=== PATIENT | female | born 1955 | race Caucasian/White ===

== ENCOUNTER → 2016-11-27 | Outpatient (CLI) | payer MEDICAID ==
[2016-11-27 16:42] LABS: ABSOLUTE BASOPHILS # (AUTO) 0.1 10^3/uL (0.0-0.2); ABSOLUTE EOSINOPHILS # (AUTO) 0.3 10^3/uL (0.0-0.6); ABSOLUTE LYMPHOCYTES (AUTO) 2.5 10^3/uL (0.5-4.7); ABSOLUTE MONOCYTES (AUTO) 0.7 10^3/uL (0.1-1.4); ABSOLUTE NEUT (AUTO) 5.6 10^3/uL (1.7-8.2); BASOPHILS % (AUTO) 0.7 % (0-2); EOSINOPHILS % (AUTO) 3.1 % (0-6); HEMATOCRIT 39.9 % (36.0-47.0); HEMOGLOBIN 13.6 g/dL (12.0-15.5); HGB HCT DIFFERENCE 0.9; LYMPHOCYTES % (AUTO) 27.3 % (13-45); MEAN CORPUSCULAR HEMOGLOBIN 30.7 pg (27.0-33.4); MEAN CORPUSCULAR VOLUME 90 fl (80-97); MONOCYTES % (AUTO) 7.8 % (3-13); RED BLOOD COUNT 4.41 10^6/uL (3.72-5.28); RED CELL DISTRIBUTION WIDTH 15.2 % (11.5-14.0); SEGMENTED NEUTROPHILS % (AUTO) 61.1 % (42-78); WHITE BLOOD COUNT 9.2 10^3/uL (4.0-10.5)
[2016-11-27 16:43] LABS: PROTHROMBIN TIME 12.3 SEC (11.4-15.4)
[2016-11-27 16:52] LABS: ANION GAP 8 (5-19); BLOOD UREA NITROGEN 16 mg/dL (7-20); CARBON DIOXIDE 31 mmol/L (22-30); CHLORIDE 102 mmol/L (98-107); CREATININE RESULT 0.68 mg/dL (0.52-1.25); GLUCOSE 87 mg/dL (75-110); MAGNESIUM 1.9 mg/dL (1.6-2.3); POTASSIUM 4.6 mmol/L (3.6-5.0); SODIUM 140.5 mmol/L (137-145)
== END ==
LOC: OD 15:51
PROVIDERS: ATTEND Nurse Practitioner Acute Care
DX: I42.9 Cardiomyopathy, unspecified (principal)
CPT/HCPCS: 36415; 80048; 83735; 85025; 85610

== ENCOUNTER 2018-06-22 09:35 | Emergency (ER) | payer MEDICARE, MEDICAID ==
--- NOTE | 2018-06-22 09:44 | ER Document Report ---
ED General - General Chief Complaint: Abnormal Lab Results Stated Complaint: BLOOD WORK Time Seen by Provider: 06/22/18 09:39 Notes: 63-year-old female to the emergency department for evaluation of abnormal lab report. Patient states that she had her blood drawn earlier this week. Was called by her primary care doctor, Dr. Green, who states that her potassium was high and he called in some medicine for her. Patient states that she is asymptomatic and does not really believe that the lab reports are accurate. Once her blood redrawn. Patient states that she has been on some Cipro for skin infection. Otherwise has been asymptomatic. Taking all of her regular medications. On metformin, lisinopril, Synthroid. TRAVEL OUTSIDE OF THE [place] IN LAST 30 DAYS: No - HPI Onset: Yesterday - Related Data Allergies/Adverse Reactions: pseudoephedrine [Pseudoephedrine] Allergy (Verified 06/22/18 09:36) IVP DYE Allergy (Uncoded 06/22/18 09:36) Past Medical History - General Information source: Patient - Social History Smoking Status: Current Some Day Smoker Frequency of alcohol use: None Drug Abuse: None Lives with: Family Family History: Reviewed & Not Pertinent - Past Medical History Cardiac Medical History: Reports: Hx Hypercholesterolemia, Hx Hypertension - malignant Neurological Medical History: Reports: Hx Cerebrovascular Accident - 2 years ago Endocrine Medical History: Reports: Hx Diabetes Mellitus Type 2, Hx Hypothyroidism Psychiatric Medical History: Reports: Hx Anxiety, Hx Depression - Immunizations Hx Diphtheria, Pertussis, Tetanus Vaccination: Yes Review of Systems - Review of Systems Constitutional: denies: Fever, Malaise, Weakness EENT: denies: Ear pain, Difficulty swallowing, Mouth swelling Cardiovascular: denies: Chest pain, Palpitations, Heart racing, Orthopnea, Dyspnea Respiratory: denies: Cough, Hurts to breathe, Short of breath, Wheezing Gastrointestinal: denies: Abdominal pain, Diarrhea, Nausea, Vomiting Musculoskeletal: denies: Back pain, Joint pain, Joint swelling, Leg swelling Hematologic/Lymphatic: denies: Blood clots, Easy bleeding, Easy bruising Neurological/Psychological: denies: Confusion, Weakness, Numbness Physical Exam - Vital signs Vitals: Temp Pulse Resp BP Pulse Ox 97.8 F 74 20 148/58 H 98 06/22/18 09:40 06/22/18 09:40 06/22/18 09:40 06/22/18 09:40 06/22/18 09:40 Interpretation: Normal - General General appearance: Appears well, Alert - Respiratory Respiratory status: No respiratory distress Chest status: Nontender Breath sounds: Normal Chest palpation: Normal - Cardiovascular Rhythm: Regular Heart sounds: Normal auscultation Murmur: No - Abdominal Inspection: Normal Distension: No distension Bowel sounds: Normal Tenderness: Nontender Organomegaly: No organomegaly - Neurological Neuro grossly intact: Yes Cognition: Normal Orientation: AAOx4 [place] Coma Scale Eye Opening: Spontaneous [place] Coma Scale Verbal: Oriented [place] Coma Scale Motor: Obeys Commands [place] Coma Scale Total: 15 Speech: Normal Motor strength normal: LUE, RUE, LLE, RLE Sensory: Normal Course - Re-evaluation Re-evalutation: 06/22/18 11:12 Laboratory 06/22/18 10:10 Sodium 141.5 Potassium 4.5 Chloride 102 Carbon Dioxide 26 Anion Gap 14 BUN 12 Creatinine 0.63 Est GFR ( Amer) > 60 Est GFR (Non-Af Amer) > 60 Glucose 160 H Calcium 9.3 Total Bilirubin 0.4 Direct Bilirubin 0.4 Neonat Total Bilirubin Not Reportable Neonat Direct Bilirubin Not Reportable Neonat Indirect Bili Not Reportable AST 8 L ALT 19 Alkaline Phosphatase 94 Total Protein 6.6 Albumin 3.4 L 06/22/18 11:12 No evidence of hyperkalemia on repeat blood draw. Labs are fairly unremarkable. Will DC at this time. - Vital Signs Vital signs: Temp Pulse Resp BP Pulse Ox 97.8 F 74 20 148/58 H 98 06/22/18 09:40 06/22/18 09:40 06/22/18 09:40 06/22/18 09:40 06/22/18 09:40 - Laboratory Result Diagrams: 06/22/18 10:10 Laboratory results interpreted by me: 06/22/18 10:10 Glucose 160 H AST 8 L Albumin 3.4 L Discharge - Discharge Clinical Impression: Abnormal laboratory test Condition: Good Disposition: HOME, SELF-CARE Instructions: Normal Exam and Workup ([facility]) Additional Instructions: Your abnormal blood draw the other day was more than likely due to laboratory error. Your blood work today looks normal. In the event that you develop any symptoms of concerns please return. Referrals: NICOLASA GREEN MD [Primary Care Provider] - Follow up as needed
[2018-06-22 11:05] LABS: ALANINE AMINOTRANSFERASE 19 U/L (9-52); ALBUMIN 3.4 g/dL (3.5-5.0); ALKALINE PHOSPHATASE 94 U/L (38-126); ANION GAP 14 (5-19); ASPARTATE AMINO TRANSFERASE 8 U/L (14-36); BILIRUBIN,DIRECT 0.4 mg/dL (0.0-0.4); BILIRUBIN,TOTAL 0.4 mg/dL (0.2-1.3); BLOOD UREA NITROGEN 12 mg/dL (7-20); CALCIUM 9.3 mg/dL (8.4-10.2); CARBON DIOXIDE 26 mmol/L (22-30); CHLORIDE 102 mmol/L (98-107); GLUCOSE 160 mg/dL (75-110); POTASSIUM 4.5 mmol/L (3.6-5.0); SODIUM 141.5 mmol/L (137-145); TOTAL PROTEIN 6.6 g/dL (6.3-8.2)
[2018-06-22 11:21] VITALS: BP 133/71
== END 2018-06-22 11:21 | disposition home or self-care (01) ==
LOC: ER 09:35
DX: Z04.8 Encounter for examination and observation for other specified reasons (principal); L08.9 Local infection of the skin and subcutaneous tissue, unspecified; F17.200 Nicotine dependence, unspecified, uncomplicated; I10 Essential (primary) hypertension; E03.9 Hypothyroidism, unspecified; E11.9 Type 2 diabetes mellitus without complications; Z79.84 Long term (current) use of oral hypoglycemic drugs; Z79.899 Other long term (current) drug therapy; Z88.8 Allergy status to other drugs, medicaments and biological substances; Z91.041 Radiographic dye allergy status
CPT/HCPCS: 36415; 80053; 99283

== ENCOUNTER → 2018-10-31 | Outpatient (CLI) | payer MEDICARE, MEDICAID ==
--- NOTE | 2018-10-31 13:10 | XCELERA REPORT ---
[address] [address] Lower Extremity Arterial Evaluation Name: JOSH TOLBERT Age: 63 yrs Gender: Female : 1955 Patient Status: Outpatient Patient Location: Study Date: 10/31/2018 11:02 AM Procedure: A color flow and duplex scan of the lower extremity arteries was performed bilaterally with velocity and waveform anaylsis. Ankle brachial indicies performed. Reason For Study: ULCER Ordering Physician: SASHA EVANS Performed By: Sara Lopez Measurements and Calculations Right Left SAFETY ADMIN ASSISTANT PSV -75.2 -92.7 cm/sec Prox PFA PSV 119.4 80.3 cm/sec Prox SFA PSV 55.1 102.5 cm/sec Mid SFA PSV 66.8 132.5 cm/sec Dist SFA PSV 104.3 74.9 cm/sec Prox Pop A PSV 10.4 cm/sec Prox TIGRE PSV 34.7 cm/sec Mid TIGRE PSV 31.9 cm/sec Prox DIRECTOR OF EDUCATION PSV 69.7 cm/sec Mid DIRECTOR OF EDUCATION PSV 39.5 cm/sec Osmany Pedis PSV -32.6 -29.9 cm/sec Right Side Arterial Evaluation Normal velocity and triphasic waveforms noted from the Common Femoral artery to the Popliteal artery. Biphasic with spectral broadening, decreased velocity in the Anterior tibial, normal velocity in the Posterior. Ankle Brachial index 0.7. Left Side Arterial Evaluation Normal velocity and triphasic waveforms noted in the Common Femoral artery. Biphasic, normal velocity in the Femoral. Biphasic with spectral broadening, decreased velocity in the infrageniculate vessels Ankle Brachial index 0.8. Interpretation Summary Moderate hemodynamically significant lesions in the right lower extremity only, on duplex imaging, at rest. NAIN suggests moderately severe disease, on the right, mild on the left. Moderate hemodynamically significant lesions in the left lower extremity only, on duplex imaging, at rest. : SASHA EVANS > Leandro Marrero
== END ==
LOC: SP 09:43
PROVIDERS: ATTEND Nurse Practitioner
DX: L97.512 Non-pressure chronic ulcer of other part of right foot with fat layer exposed (principal)
CPT/HCPCS: 93922; 93925

== ENCOUNTER → 2019-03-11 | Outpatient (CLI) | payer MEDICARE, MEDICAID ==
--- NOTE | 2019-03-11 13:28 | RADIOLOGY REPORT (SQ) ---
EXAM DESCRIPTION: FOOT BILATERAL 3 VIEWS COMPLETED DATE/TIME: 03/11/2019 12:52 pm REASON FOR STUDY: UNSPECIFIED ACQUIRED DEFORMITY OF UNSPECIFIED LOWER LEG M21.969 UNSPECIFIED ACQUI RED DEFORMITY OF UNSPECIFIED LOWER COMPARISON: None. NUMBER OF VIEWS: Three views. TECHNIQUE: AP, lateral and oblique radiographic images acquired of the right and left foot. LIMITATIONS: None. FINDINGS: MINERALIZATION: Normal. BONES: No acute fracture or dislocation. Calcaneal spurs bilaterally. Accessory cuboid bone on the left, normal anatomic variant. JOINTS: Since the previous examination, bony destruction and collapse right first metatarsophalangea l joint. Soft tissue swelling. Differential diagnosis includes osteomyelitis versus neuropathic abel nt. Mild degenerative changes right mid foot. Mild degenerative changes mid foot on the left. No evidence of bony destruction. SOFT TISSUES: See above discussion. OTHER: No other significant finding. IMPRESSION: 1. Since the previous examination dated 02/29/2016, new finding of bony destruction and collapse at the right first metatarsophalangeal joint. Soft tissue swelling. Differential diagnosis includes osteomyelitis versus neuropathic joint. Correlation suggested. 2. Bilateral mid foot arthritic changes. 3. Bilateral calcaneal spurs. TECHNICAL DOCUMENTATION: JOB ID: [id number] [email or web address]- All Rights Reserved Reading location - IP/workstation name: [email or web address]
== END ==
LOC: OD 12:37
PROVIDERS: ATTEND Physician Assistant Surgical
DX: M21.969 Unspecified acquired deformity of unspecified lower leg (principal)

== ENCOUNTER → 2019-05-28 | Outpatient (CLI) | payer MEDICARE, MEDICAID ==
--- NOTE | 2019-05-28 15:23 | RADIOLOGY REPORT (SQ) ---
EXAM DESCRIPTION: CAROTID DOPPLER COMPLETED DATE/TIME: 05/28/2019 2:47 pm REASON FOR STUDY: BRUIT R09.89 OTH SYMPTOMS AND SIGNS INVOLVING THE CIRC AND RESP SY COMPARISON: 09/26/2016 TECHNIQUE: Grayscale ultrasound, Doppler velocity and spectra, and color Doppler images acquired of the extra-cranial carotid and vertebral arteries. Images stored on PACS. LIMITATIONS: None. FINDINGS: RIGHT CAROTID CCA Velocities: Within normal limits. ICA Velocities Peak systolic 0.86 m/s. End diastolic 0.28 m/s. Proximal ICA/CCA peak systolic ratio 1.7. Mild complex plaque in the carotid bulb. LEFT CAROTID CCA Velocities: Within normal limits. ICA Velocities Peak systolic 1.18 m/s. End diastolic 0.38 m/s. Proximal ICA/CCA peak systolic ratio 1.4. Spectra normal. No significant plaque. VERTEBRAL ARTERIES: Antegrade flow. Normal waveforms. SUBCLAVIAN ARTERIES: No finding. OTHER: Velocities in the right external carotid artery are greater than 5 m/sec. IMPRESSION: 1. No hemodynamically significant stenosis on the right or left. 2. There is narrowing in both the right and left external carotid arteries which may cause a bruit. COMMENT: Quality ID #[id number]: Velocity criteria are extrapolated from the diameter data as defined by t he Society of Radiologists in Ultrasound Consensus Conference. Radiology 2003: 229; 340-346. TECHNICAL DOCUMENTATION: JOB ID: [id number] [employer]- All Rights Reserved Reading location - IP/workstation name: [email or web address]
== END ==
LOC: SP 12:57
PROVIDERS: ATTEND Surgery
DX: R09.89 Other specified symptoms and signs involving the circulatory and respiratory systems (principal)
CPT/HCPCS: 93880

== ENCOUNTER 2019-12-12 16:21 | Inpatient (IN) | payer MEDICARE, MEDICAID ==
--- NOTE | 2019-12-12 17:17 | ER Document Report ---
ED Medical Screen (RME) - General Chief Complaint: Hand Swelling Stated Complaint: RIGHT HAND AND ARM PAIN/SWELLING Time Seen by Provider: 12/12/19 16:55 Primary Care Provider: NICOLASA GREEN MD [Primary Care Provider] - Follow up as needed Mode of Arrival: Ambulatory Information source: Patient Notes: 64-year-old female patient presenting to the emergency department from Dr. Green's office with concern for right arm pain and swelling. Patient reports this is been going on for several days. She states Dr. Green sent her over here with concern for possible DVT. Patient denies any personal history of DVT. While evaluating patient it was noted that patient's heart rate was 169 bpm and the lobby. This checked manually and the heart rate seems to be ranging between 150 and 170. Patient denies any history of elevated heart rate in the past. Patient taken straight to inform MD Lakeisha made aware. Patient denies any chest pain or shortness of breath. I have greeted and performed a rapid initial assessment of this patient. A comprehensive ED assessment and evaluation of the patient, analysis of test results and completion of the medical decision making process will be conducted by additional ED providers. I have specifically instructed the patient or family members with the patient to immediately return to any nursing staff should anything change in the patient's condition or with their chief complaint. TRAVEL OUTSIDE OF THE [place] IN LAST 30 DAYS: No - Related Data Allergies/Adverse Reactions: pseudoephedrine [Pseudoephedrine] Allergy (Verified 12/12/19 16:50) IVP DYE Allergy (Uncoded 06/22/18 09:36) Past Medical History - Social History Chew tobacco use (# tins/day): No Frequency of alcohol use: None Drug Abuse: None - Past Medical History Cardiac Medical History: Reports: Hx Hypercholesterolemia, Hx Hypertension - malignant Neurological Medical History: Reports: Hx Cerebrovascular Accident - 2 years ago Endocrine Medical History: Reports: Hx Diabetes Mellitus Type 2, Hx Hypothyroidism Renal/ Medical History: Denies: Hx Peritoneal Dialysis Psychiatric Medical History: Reports: Hx Anxiety, Hx Depression - Immunizations Hx Diphtheria, Pertussis, Tetanus Vaccination: Yes Doctor's Discharge - Discharge Referrals: NICOLASA GREEN MD [Primary Care Provider] - Follow up as needed
[2019-12-12] MEDS ORDERED: DILTIAZEM HCL INJ 25 MG/5 ML VIAL IV ONE (17:31)
--- NOTE | 2019-12-12 17:50 | RADIOLOGY REPORT (SQ) ---
EXAM DESCRIPTION: CHEST SINGLE VIEW COMPLETED DATE/TIME: 12/12/2019 5:36 pm REASON FOR STUDY: New onset atrial fibrillation with RVR COMPARISON: Two-view chest 10/06/2016 EXAM PARAMETERS: NUMBER OF VIEWS: One view. TECHNIQUE: Single frontal radiographic view of the chest acquired. RADIATION DOSE: NA LIMITATIONS: None. FINDINGS: LUNGS AND PLEURA: Consolidation in the right lung base worrisome for acute pneumonia. Tra ce right pleural effusion could not be excluded. MEDIASTINUM AND HILAR STRUCTURES: No masses. Contour normal. HEART AND VASCULAR STRUCTURES: Marked cardiomegaly, new compared to 2016 BONES: No acute findings. HARDWARE: None in the chest. OTHER: No other significant finding. IMPRESSION: Right lower lobe consolidation worrisome for pneumonia. Marked cardiomegaly, new compared to 2016 TECHNICAL DOCUMENTATION: JOB ID: [id number] [employer]- All Rights Reserved Reading location - IP/workstation name: [email or web address]
[2019-12-12] MEDS: DILTIAZEM HCL/D5W 125 MG/125 ML RTUINJ IV PRN ×2 (17:55→17:58)
--- NOTE | 2019-12-12 18:27 | ER Document Report ---
Entered by RENNY ASENCIO SCRIBE 12/12/19 [id number] Acting as scribe for:JOSH DOBSON MD ED General - General Chief Complaint: Hand Swelling Stated Complaint: RIGHT HAND AND ARM PAIN/SWELLING Time Seen by Provider: 12/12/19 16:55 Primary Care Provider: NICOLASA GREEN MD [Primary Care Provider] - Follow up as needed Mode of Arrival: Ambulatory Information source: Patient Notes: 64 year old female with a history of CVA presents to the ED with right arm swelling that began yesterday. Patient states that she has "burning" pain in her wrist. Patient has no history of atrial fibrillation although on arrival here she was found to be in a-fib with a heart rate in the 150s. TRAVEL OUTSIDE OF THE [place] IN LAST 30 DAYS: No - Related Data Allergies/Adverse Reactions: pseudoephedrine [Pseudoephedrine] Allergy (Verified 12/12/19 16:50) IVP DYE Allergy (Uncoded 06/22/18 09:36) Past Medical History - General Information source: Patient - Social History Smoking Status: Current Every Day Smoker - 1 pack every 3 days Cigarette use (# per day): Yes - 1/3 packs per day Chew tobacco use (# tins/day): No Frequency of alcohol use: None Drug Abuse: None Family History: Reviewed & Not Pertinent Patient has suicidal ideation: No Patient has homicidal ideation: No - Past Medical History Cardiac Medical History: Reports: Hx Hypercholesterolemia, Hx Hypertension Neurological Medical History: Reports: Hx Cerebrovascular Accident - 2 years ago Endocrine Medical History: Reports: Hx Diabetes Mellitus Type 2, Hx Hypothyroidism Psychiatric Medical History: Reports: Hx Anxiety, Hx Depression Past Surgical History: Reports: Hx Carotid Endarterectomy - Left - Immunizations Hx Diphtheria, Pertussis, Tetanus Vaccination: Yes Review of Systems - Review of Systems Constitutional: No symptoms reported EENT: No symptoms reported Cardiovascular: No symptoms reported Respiratory: No symptoms reported Gastrointestinal: No symptoms reported Genitourinary: No symptoms reported Female Genitourinary: No symptoms reported Musculoskeletal: See HPI, Leg swelling, Other - R Arm swelling Skin: No symptoms reported Hematologic/Lymphatic: No symptoms reported Neurological/Psychological: No symptoms reported -: Yes All other systems reviewed and negative Physical Exam - Vital signs Vitals: Resp 21 H 12/12/19 17:06 - Notes Notes: General: Alert, appears well. HEENT: Normocephalic. Atraumatic. PERRL. Extraocular movements intact. Oropharynx clear. Neck: Supple. Non-tender. Respiratory: No respiratory distress. Clear and equal breath sounds bilaterally. Cardiovascular: Irregularly irregular, tachycardic in the 150s. Abdominal: Normal Inspection. Non-tender. No distension. Normal Bowel Sounds. Back: No gross abnormalities. Extremities: Moves all four extremities. Upper extremities: RUE swollen from mid upper arm. Right dorsal radial wrist ten neeta to palpation with history of Quervain's Tenosynovitis. Normal ROM. Lower extremities: Pedal edema 2+ bilaterally. Normal ROM. Neurological: Normal cognition. AAOx4. Normal speech. Psychological: Normal affect. Normal Mood. Skin: Warm. Dry. Normal color. Course - Re-evaluation Re-evalutation: 12/12/19 20:16 The venous Doppler tech reported to me that the patient showed clot from the neck down to the hand in the right upper extremity. - Vital Signs Vital signs: Temp Pulse Resp BP Pulse Ox 17 117/82 12/12/19 19:15 12/12/19 19:15 - Laboratory Result Diagrams: 12/12/19 17:15 12/12/19 17:15 Laboratory results interpreted by me: 12/12/19 12/12/19 12/12/19 17:15 17:15 17:15 WBC 10.6 H Hgb 11.6 L MCH 25.6 L MCHC 31.0 L RDW 18.7 H Lymph % (Auto) 10.7 L Absolute Neuts (auto) 8.4 H Seg Neutrophils % 78.6 H APTT 23.0 L Glucose 119 H - Diagnostic Test Radiology reviewed: Image reviewed - Chest x-ray shows right pleural effusion with some atelectasis and borderline cardiomegaly. Comparing to a portable film on 12/23/2014 the heart size is probably not changed. This case was discussed with the on-call radiologist. - EKG Interpretation by Me EKG shows normal: [place], Intervals, QRS Complexes. abnormal: ST-T Waves - Nonspecific lateral T abnormalities Rate: Tachycardia - 151 Rhythm: A.Fib [place]/QRS: Left axis deviation When compared to previous EKG there are: Changes noted - Consults Dr. Cox Time consulted: 19:30 Consulted provider: will see as inpatient Critical Care Note - Critical Care Note Total time excluding time spent on procedures (mins): 50 Discharge - Discharge Clinical Impression: Atrial fibrillation with rapid ventricular response, DVT of axillary vein, acute right Condition: Good Disposition: ADMITTED INPATIENT Admitting Provider: Yasir Cox covering Unit Admitted: IMCU Referrals: NICOLASA GREEN MD [Primary Care Provider] - Follow up as needed Scribe Attestation: 12/12/19 20:03 I personally performed the services described in the documentation, reviewed and edited the documentation which was dictated to the scribe in my presence, and it accurately records my words and actions. I personally performed the services described in the documentation, reviewed and edited the documentation which was dictated to the scribe in my presence, and it accurately records my words and actions.
[2019-12-12 18:39] LABS: ABSOLUTE LYMPHOCYTES (AUTO) 1.1 10^3/uL (0.5-4.7); ABSOLUTE MONOCYTES (AUTO) 1.1 10^3/uL (0.1-1.4); ABSOLUTE NEUT (AUTO) 8.4 10^3/uL (1.7-8.2); BASOPHILS % (AUTO) 0.3 % (0-2); EOSINOPHILS % (AUTO) 0.4 % (0-6); HEMATOCRIT 37.4 % (36.0-47.0); HEMOGLOBIN 11.6 g/dL (12.0-15.5); LYMPHOCYTES % (AUTO) 10.7 % (13-45); MEAN CORPUSCULAR HEMOGLOBIN 25.6 pg (27.0-33.4); MEAN CORPUSCULAR VOLUME 83 fl (80-97); PLATELET COUNT 241 10^3/uL (150-450); RED BLOOD COUNT 4.52 10^6/uL (3.72-5.28); RED CELL DISTRIBUTION WIDTH 18.7 % (11.5-14.0); SEGMENTED NEUTROPHILS % (AUTO) 78.6 % (42-78); TOTAL CELLS COUNTED % (AUTO) 100 %; WHITE BLOOD COUNT 10.6 10^3/uL (4.0-10.5)
[2019-12-12 19:03] LABS: ALBUMIN 3.6 g/dL (3.5-5.0); ALKALINE PHOSPHATASE 101 U/L (38-126); ANION GAP 9 (5-19); ASPARTATE AMINO TRANSFERASE 22 U/L (14-36); BILIRUBIN,TOTAL 0.5 mg/dL (0.2-1.3); BLOOD UREA NITROGEN 17 mg/dL (7-20); CALCIUM 9.3 mg/dL (8.4-10.2); CARBON DIOXIDE 30 mmol/L (22-30); CHLORIDE 100 mmol/L (98-107); CREATINE KINASE 36 U/L (30-135); GLUCOSE 119 mg/dL (75-110); POTASSIUM 3.9 mmol/L (3.6-5.0); TOTAL PROTEIN 6.3 g/dL (6.3-8.2)
[2019-12-12 19:13] LABS: CREATINE KINASE MB 1.97 ng/mL (<4.55)
[2019-12-12 19:20] LABS: TROPONIN I 0.146 ng/mL
[2019-12-12] MEDS ORDERED: HEPARIN SOD (PORCINE) 1,000 UNIT/ML 10 ML VIAL IV ONE (19:29)
[2019-12-12 19:42] LABS: INTERNATIONAL RATION (INR) 1.06; PROTHROMBIN TIME 13.8 SEC (11.4-15.4)
[2019-12-12] MEDS: HEPARIN SODIUM,PORCINE/D5W 25,000 UNIT/250 ML RTUINJ IV PRN (20:16)
--- NOTE | 2019-12-12 20:17 | EKG REPORT ---
SEVERITY:- ABNORMAL ECG - ATRIAL FIBRILLATION, V-RATE 73-169 RVR LEFT AXIS DEVIATION ABNRM R PROG, CONSIDER ASMI OR LEAD PLACEMENT NONSPECIFIC T ABNORMALITIES, LATERAL LEADS : Confirmed by: Giovanny Peters MD 12-Dec-2019 20:16:31
[2019-12-12] MEDS ORDERED: OXYCODONE-ACETAMINOPHEN 5-325 MG TABLET PO PRN (21:06)
[2019-12-12] MEDS ORDERED: GLUCAGON,HUMAN RECOMB 1 MG INJ IM PRN (21:07)
[2019-12-12] MEDS ORDERED: DEXTROSE 40% GEL 15 GM TUBE PO PRN ×2 (21:07)
[2019-12-12] MEDS ORDERED: DEXTROSE 50%-WATER 25 GM/50 ML DISP.SYRIN IV PRN ×2 (21:07)
[2019-12-12 21:42] LABS: PHOSPHORUS 3.5 mg/dL (2.5-4.5)
[2019-12-12 22:00] LABS: FREE T4 (FREE THYROXINE) 1.18 ng/dL (0.78-2.19)
[2019-12-12 22:14] LABS: THYROID STIMULATING HORMONE 9.99 uIU/mL (0.47-4.68)
[2019-12-12] MEDS ORDERED: HEPARIN SOD (PORCINE) 1,000 UNIT/ML 10 ML VIAL IV PRN (22:30)
[2019-12-12 22:40] LABS: ABSOLUTE EOSINOPHILS # (AUTO) 0.1 10^3/uL (0.0-0.6); ABSOLUTE LYMPHOCYTES (AUTO) 2.4 10^3/uL (0.5-4.7); ABSOLUTE MONOCYTES (AUTO) 1.4 10^3/uL (0.1-1.4); ABSOLUTE NEUT (AUTO) 8.5 10^3/uL (1.7-8.2); BASOPHILS % (AUTO) 0.3 % (0-2); HEMATOCRIT 34.7 % (36.0-47.0); HEMOGLOBIN 10.8 g/dL (12.0-15.5); LYMPHOCYTES % (AUTO) 18.9 % (13-45); MEAN CORPUSCULAR HEMOGLOBIN 25.4 pg (27.0-33.4); MEAN CORPUSCULAR VOLUME 82 fl (80-97); MONOCYTES % (AUTO) 11.6 % (3-13); PLATELET COUNT 209 10^3/uL (150-450); RED BLOOD COUNT 4.24 10^6/uL (3.72-5.28); RED CELL DISTRIBUTION WIDTH 18.6 % (11.5-14.0); SEGMENTED NEUTROPHILS % (AUTO) 68.2 % (42-78); TOTAL CELLS COUNTED % (AUTO) 100 %; WHITE BLOOD COUNT 12.5 10^3/uL (4.0-10.5)
[2019-12-12 23:12] LABS: CREATINE KINASE MB 1.36 ng/mL (<4.55)
[2019-12-12 23:22] LABS: TROPONIN I 0.219 ng/mL
[2019-12-12 23:43] LABS: INTERNATIONAL RATION (INR) 1.28; PROTHROMBIN TIME 16.1 SEC (11.4-15.4)
[2019-12-12 23:57] LABS: PARTIAL THROMBOPLASTIN TIME > 235.0 SEC (23.5-35.8)
[2019-12-13] MEDS: INSULIN LISPRO 100 UNIT/ML 3 ML VIAL SUBCUT SCH ×5 (00:10→22:31)
[2019-12-13] MEDS: ATORVASTATIN CALCIUM 40 MG TABLET PO SCH ×2 (00:10→22:27)
[2019-12-13 05:14] LABS: ABSOLUTE BASOPHILS # (AUTO) 0.1 10^3/uL (0.0-0.2); ABSOLUTE EOSINOPHILS # (AUTO) 0.2 10^3/uL (0.0-0.6); ABSOLUTE LYMPHOCYTES (AUTO) 1.7 10^3/uL (0.5-4.7); ABSOLUTE MONOCYTES (AUTO) 1.1 10^3/uL (0.1-1.4); ABSOLUTE NEUT (AUTO) 7.2 10^3/uL (1.7-8.2); BASOPHILS % (AUTO) 0.6 % (0-2); EOSINOPHILS % (AUTO) 1.6 % (0-6); HEMATOCRIT 33.3 % (36.0-47.0); HEMOGLOBIN 10.5 g/dL (12.0-15.5); LYMPHOCYTES % (AUTO) 16.9 % (13-45); MEAN CORPUSCULAR HEMOGLOBIN 25.8 pg (27.0-33.4); MEAN CORPUSCULAR HGB CONC 31.6 g/dL (32.0-36.0); MEAN CORPUSCULAR VOLUME 82 fl (80-97); MONOCYTES % (AUTO) 11.1 % (3-13); PLATELET COUNT 211 10^3/uL (150-450); RED BLOOD COUNT 4.07 10^6/uL (3.72-5.28); RED CELL DISTRIBUTION WIDTH 18.6 % (11.5-14.0); SEGMENTED NEUTROPHILS % (AUTO) 69.8 % (42-78); TOTAL CELLS COUNTED % (AUTO) 100 %; WHITE BLOOD COUNT 10.3 10^3/uL (4.0-10.5)
[2019-12-13 05:19] LABS: INTERNATIONAL RATION (INR) 1.14; PROTHROMBIN TIME 14.7 SEC (11.4-15.4)
[2019-12-13 05:21] LABS: PARTIAL THROMBOPLASTIN TIME 97.2 SEC (23.5-35.8)
[2019-12-13] MEDS: LEVOTHYROXINE SODIUM 0.088 MG TABLET PO SCH (05:28)
[2019-12-13 05:34] LABS: ALKALINE PHOSPHATASE 92 U/L (38-126); ANION GAP 7 (5-19); ASPARTATE AMINO TRANSFERASE 18 U/L (14-36); BILIRUBIN,TOTAL 0.7 mg/dL (0.2-1.3); BLOOD UREA NITROGEN 15 mg/dL (7-20); CARBON DIOXIDE 30 mmol/L (22-30); CHLORIDE 103 mmol/L (98-107); CHOLESTEROL 77.17 mg/dL (0-200); GLUCOSE 106 mg/dL (75-110); POTASSIUM 3.7 mmol/L (3.6-5.0); TOTAL PROTEIN 5.6 g/dL (6.3-8.2); TRIGLYCERIDES 83 mg/dL (<150)
[2019-12-13 05:39] LABS: APPEARANCE,URINE SLIGHTLY-CLOUDY; BILIRUBIN,URINE NEGATIVE (NEGATIVE); COLOR,URINE AMBER; GLUCOSE, URINE NEGATIVE (NEGATIVE); KETONES,URINE NEGATIVE (NEGATIVE); LEUKOCYTE ESTERASE,URINE NEGATIVE (NEGATIVE); NITRITE,URINE NEGATIVE (NEGATIVE); PROTEIN,URINE 30 mg/dL (NEGATIVE); URINE SPECIFIC GRAVITY 1.025; UROBILINOGEN,URINE NEGATIVE mg/dL (<2.0)
[2019-12-13 05:46] LABS: CREATINE KINASE MB 1.28 ng/mL (<4.55); DIRECT LDL 42 mg/dL (<100); TROPONIN I 0.27 ng/mL
[2019-12-13 05:51] LABS: URINE AMPHETAMINES SCREEN NEGATIVE; URINE BARBITURATES SCREEN NEGATIVE; URINE BENZODIAZEPINES SCREEN NEGATIVE; URINE COCAINE SCREEN NEGATIVE; URINE MARIJUANA (THC) SCREEN NEGATIVE; URINE METHADONE SCREEN NEGATIVE; URINE PHENCYCLIDINE SCREEN NEGATIVE
[2019-12-13] MEDS: DILTIAZEM HCL/D5W 125 MG/125 ML RTUINJ IV PRN ×2 (06:00→20:02)
[2019-12-13] MEDS: DULOXETINE HCL 30 MG CAPSULE.DR PO SCH (09:07)
--- NOTE | 2019-12-13 12:08 | XCELERA REPORT ---
[address] [address] Upper Extremity Venous Evaluation Name: JOSH TOLBERT Age: 64 yrs Gender: Female : 1955 Patient Status: Inpatient Patient Location: [place] [address]^A Study Date: 12/12/2019 06:18 PM Procedure: Unilateral duplex scan of the right upper extremity veins was performed, including responses to compression and other maneuvers. Reason For Study: right upper ext edema Ordering Physician: JOSH DOBSON Performed By: Minal Baig Right Side Venous Evaluation Abnormal vessel filling, no compression or Colour flow , enlarged veins with echogenic content, , from Internal [place] down to the forearm veins. Sparing the Basilic vein. Critical Findings Discussed with Dr Dobson. Interpretation Summary Unusually extensive right upper extremity deep venous thrombosis. Subacute in appearance. : JOSH DOBSON > Leandro Marrero
[2019-12-13 12:19] LABS: INTERNATIONAL RATION (INR) 1.13; PROTHROMBIN TIME 14.6 SEC (11.4-15.4)
[2019-12-13 12:22] LABS: PARTIAL THROMBOPLASTIN TIME 119.7 SEC (23.5-35.8)
[2019-12-13 12:42] LABS: CREATINE KINASE MB 1.18 ng/mL (<4.55); TROPONIN I 0.189 ng/mL
--- NOTE | 2019-12-13 13:23 | PDOC H&P ---
History of Present Illness Admission Date/PCP: 12/12/19 20:15 NICOLASA GREEN MD History of Present Illness: JOSH TOLBERT is a 64 year old female, she came to the emergency room for evaluation of right upper extremity swelling that began yesterday. In the emergency room she was evaluated a unilateral duplex scan of the right upper extremity vein was performed it demonstrated extensive right upper extremity deep vein thrombosis this is very unusual, there is no history of recent pro cedure in the neck or the right upper extremity, there is no history of breast cancer that she knows of, she is compliant with yearly mammogram, in the emergency room she was also found to be in atrial fibrillation with rapid ventricular response.. She smoke cigarettes 1 pack every 3 days, the chest x- ray that was done demonstrated a right lower lobe consolidation, this will need further evaluation, she is not endorsing any respiratory symptoms, no chest pain no shortness of breath no cough no hemoptysis Past Medical History Cardiac Medical History: Reports: Hyperlipidema, Hypertension Endocrine Medical History: Reports: Diabetes Mellitus Type 2, Hypothyroidism Psychiatric Medical History: Reports: Depression Past Surgical History Past Surgical History: Reports: Carotid Endarterectomy - Left Social History Smoking Status: Current Some Day Smoker Electronic Cigarette use?: No Frequency of Alcohol Use: Rare Hx Recreational Drug Use: No Drugs: None Hx Prescription Drug Abuse: No Family History Family History: Reviewed & Not Pertinent Parental Family History Reviewed: Yes Children Family History Reviewed: Yes Sibling(s) Family History Reviewed.: Yes Medication/Allergy Home Medications: Aspirin [Aspirin 325 mg Tablet] 325 mg PO DAILY 12/12/19 Atorvastatin Calcium [Lipitor 40 mg Tablet] 40 mg PO QHS 12/12/19 Duloxetine HCl [Cymbalta] 60 mg PO DAILY 12/12/19 Fluticasone Propionate [Flonase Nasal [place] 50 Mcg/[place] 16 gm] 1 spray NASL DAILY 12/12/19 Ibuprofen [Motrin 800 mg Tablet] 800 mg PO Q12HP PRN 12/12/19 Levothyroxine Sodium 88 mcg PO Q6AM 12/12/19 Lisinopril [Zestril] 5 mg PO DAILY 12/12/19 Metformin HCl [Glucophage 500 mg Tablet] 1,000 mg PO QPM 12/12/19 Metformin HCl [Glucophage 500 mg Tablet] 500 mg PO QAM 12/12/19 Oxycodone HCl/Acetaminophen [Percocet 5-325 mg Tablet] 1 tab PO Q6HP PRN 12/12/19 Allergies/Adverse Reactions: pseudoephedrine [Pseudoephedrine] Allergy (Verified 12/12/19 16:50) IVP DYE Allergy (Uncoded 06/22/18 09:36) Review of Systems Constitutional: ABSENT: chills, fever(s), headache(s), weight gain, weight loss Eyes: ABSENT: visual disturbances Ears: ABSENT: hearing changes Cardiovascular: ABSENT: chest pain, dyspnea on exertion, edema, orthropnea, palpitations Respiratory: ABSENT: cough, hemoptysis Gastrointestinal: ABSENT: abdominal pain, constipation, diarrhea, hematemesis, hematochezia, nausea, vomiting Genitourinary: ABSENT: dysuria, hematuria Musculoskeletal: PRESENT: other - swelling of the right upper extremity Integumentary: ABSENT: rash, wounds Neurological: ABSENT: abnormal gait, abnormal speech, confusion, dizziness, focal weakness, syncope Psychiatric: ABSENT: anxiety, depression, homidical ideation, suicidal ideation Endocrine: ABSENT: cold intolerance, heat intolerance, menstrual abnormalities, polydipsia, polyuria Hematologic/Lymphatic: ABSENT: easy bleeding, easy bruising, lymphadenopathy Physical Exam Vital Signs: Temp Pulse Resp BP Pulse Ox 97.7 F 103 H 17 117/68 96 12/13/19 07:53 12/13/19 12:05 12/13/19 07:53 12/13/19 12:05 12/13/19 07:53 Intake & Output 12/12/19 12/13/19 12/14/19 06:59 06:59 06:59 Intake Total 419 12 Output Total 150 Balance 269 12 Weight 103.2 kg 103.2 kg General appearance: PRESENT: no acute distress, well-developed, well-nourished Head exam: PRESENT: atraumatic, normocephalic Eye exam: PRESENT: conjunctiva pink, EOMI, PERRLA Ear exam: PRESENT: normal external ear exam Mouth exam: PRESENT: moist, tongue midline Neck exam: PRESENT: full ROM Respiratory exam: PRESENT: clear to auscultation gunjan Cardiovascular exam: PRESENT: RRR, +S1, +S2 Pulses: PRESENT: normal dorsalis pedis pul, +2 pedal pulses bilateral Vascular exam: PRESENT: normal capillary refill GI/Abdominal exam: PRESENT: normal bowel sounds, soft Rectal exam: PRESENT: deferred Extremities exam: PRESENT: other - Swelling of the right upper extremities, areas of scarring in the extensor surface of the forearm Neurological exam: PRESENT: alert, awake, oriented to person, oriented to place, oriented to time, oriented to situation, CN II-XII grossly intact Psychiatric exam: PRESENT: appropriate affect, normal mood Skin exam: PRESENT: dry, intact, warm Results Laboratory Results: 12/13/19 05:04 12/13/19 05:01 12/12/19 12/12/19 12/12/19 17:15 17:15 17:15 WBC 10.6 H RBC 4.52 Hgb 11.6 L Hct 37.4 MCV 83 MCH 25.6 L MCHC 31.0 L RDW 18.7 H Plt Count 241 Seg Neutrophils % 78.6 H Sodium 138.6 Potassium 3.9 Chloride 100 Carbon Dioxide 30 Anion Gap 9 BUN 17 Creatinine 0.70 Est GFR ( Amer) > 60 Glucose 119 H Calcium 9.3 Phosphorus 3.5 Magnesium 1.9 Total Bilirubin 0.5 AST 22 Alkaline Phosphatase 101 Ammonia Total Protein 6.3 Albumin 3.6 Triglycerides Cholesterol LDL Cholesterol Direct VLDL Cholesterol HDL Cholesterol Amylase 33 Lipase 60.8 TSH Free T4 Urine Color Urine Appearance Urine pH Ur Specific [place] Urine Protein Urine Glucose (UA) Urine Ketones Urine Blood Urine Nitrite Ur Leukocyte Esterase Urine WBC (Auto) Urine RBC (Auto) 12/12/19 12/12/19 12/12/19 17:15 22:17 22:17 WBC 12.5 H RBC 4.24 Hgb 10.8 L Hct 34.7 L MCV 82 MCH 25.4 L MCHC 31.0 L RDW 18.6 H Plt Count 209 Seg Neutrophils % 68.2 Sodium Potassium Chloride Carbon Dioxide Anion Gap BUN Creatinine Est GFR ( Amer) Glucose Calcium Phosphorus Magnesium Total Bilirubin AST Alkaline Phosphatase Ammonia < 8.7 L Total Protein Albumin Triglycerides Cholesterol LDL Cholesterol Direct VLDL Cholesterol HDL Cholesterol Amylase Lipase TSH 9.99 H Free T4 1.18 Urine Color Urine Appearance Urine pH Ur Specific [place] Urine Protein Urine Glucose (UA) Urine Ketones Urine Blood Urine Nitrite Ur Leukocyte Esterase Urine WBC (Auto) Urine RBC (Auto) 12/13/19 12/13/19 12/13/19 05:01 05:04 05:15 WBC 10.3 RBC 4.07 Hgb 10.5 L Hct 33.3 L MCV 82 MCH 25.8 L MCHC 31.6 L RDW 18.6 H Plt Count 211 Seg Neutrophils % 69.8 Sodium 139.7 Potassium 3.7 Chloride 103 Carbon Dioxide 30 Anion Gap 7 BUN 15 Creatinine 0.63 Est GFR ( Amer) > 60 Glucose 106 Calcium 9.0 Phosphorus Magnesium Total Bilirubin 0.7 AST 18 Alkaline Phosphatase 92 Ammonia Total Protein 5.6 L Albumin 3.0 L Triglycerides 83 Cholesterol 77.17 LDL Cholesterol Direct 42 VLDL Cholesterol 17.0 HDL Cholesterol 31 L Amylase Lipase TSH Free T4 Urine Color DORIS Urine Appearance SLIGHTLY-CLOUDY Urine pH 6.0 Ur Specific [place] 1.025 Urine Protein 30 H Urine Glucose (UA) NEGATIVE Urine Ketones NEGATIVE Urine Blood NEGATIVE Urine Nitrite NEGATIVE Ur Leukocyte Esterase NEGATIVE Urine WBC (Auto) 3 Urine RBC (Auto) 0 12/12/19 12/12/19 12/12/19 17:15 17:15 22:17 Creatine Kinase 36 28 L CK-MB (CK-2) 1.97 Troponin I 0.146 12/12/19 12/13/19 12/13/19 22:17 05:01 05:01 Creatine Kinase 26 L CK-MB (CK-2) 1.36 1.28 Troponin I 0.219 0.270 12/13/19 12/13/19 11:50 11:50 Creatine Kinase 27 L CK-MB (CK-2) 1.18 Troponin I 0.189 Impressions: Chest X-Ray 12/12/19 17:20 IMPRESSION: Right lower lobe consolidation worrisome for pneumonia. Marked cardiomegaly, new compared to 2016 Assessment & Plan - Diagnosis (1) Deep vein thrombosis of right upper extremity Qualifiers: Affected thrombotic vein of extremity: other upper extremity vein Chronicity: acute Qualified Code(s): I82.621 - Acute embolism and thrombosis of deep veins of right upper extremity Is this a current diagnosis for this admission?: Yes Plan: She has extensive deep vein thrombosis of the right upper extremities, she will be treated with intravenous heparin because of the large "clot" burden. There is no apparent provocative factor in this case, it is very unusual site to have deep vein thrombosis without any procedure. 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
--- NOTE | 2019-12-13 13:40 | PDOC PROGRESS REPORT ---
Subjective Progress Note for:: 12/13/19 Subjective:: She was admitted yesterday for unprovoked extensive deep vein thrombosis of the right upper extremities, she is presently on intravenous heparin she will continue this regimen for 3 days, we will transition to p.o. Eliquis in 72 hours. IV heparin was chosen because of the extensive clot burden in the right upper extremities. The chest x-ray that was done yesterday demonstrated a right lower lobe consolidation, CT chest with contrast will be ordered to further d efine the lesion in the lung especially in this patient, a smoker, and she is not endorsing any respiratory symptoms that would suggest a pneumonia. Reason For Visit: RIGHT UPPER EXTREMITY THROMBOSIS. A-FIB WITH RVR Physical Exam Vital Signs: Temp Pulse Resp BP Pulse Ox 97.7 F 103 H 17 117/68 96 12/13/19 07:53 12/13/19 12:05 12/13/19 07:53 12/13/19 12:05 12/13/19 07:53 Intake & Output 12/12/19 12/13/19 12/14/19 06:59 06:59 06:59 Intake Total 419 488 Output Total 150 Balance 269 488 Weight 103.2 kg 103.2 kg General appearance: PRESENT: no acute distress Eye exam: PRESENT: PERRLA Respiratory exam: PRESENT: clear to auscultation gunjan Cardiovascular exam: PRESENT: +S1, +S2 GI/Abdominal exam: PRESENT: soft Extremities exam: PRESENT: other - Swelling of the right upper extremities Neurological exam: PRESENT: alert, CN II-XII grossly intact Results Laboratory Results: 12/13/19 05:04 12/13/19 05:01 12/12/19 12/12/19 12/12/19 17:15 17:15 17:15 WBC 10.6 H RBC 4.52 Hgb 11.6 L Hct 37.4 MCV 83 MCH 25.6 L MCHC 31.0 L RDW 18.7 H Plt Count 241 Seg Neutrophils % 78.6 H Sodium 138.6 Potassium 3.9 Chloride 100 Carbon Dioxide 30 Anion Gap 9 BUN 17 Creatinine 0.70 Est GFR ( Amer) > 60 Glucose 119 H Calcium 9.3 Phosphorus 3.5 Magnesium 1.9 Total Bilirubin 0.5 AST 22 Alkaline Phosphatase 101 Ammonia Total Protein 6.3 Albumin 3.6 Triglycerides Cholesterol LDL Cholesterol Direct VLDL Cholesterol HDL Cholesterol Amylase 33 Lipase 60.8 TSH Free T4 Urine Color Urine Appearance Urine pH Ur Specific [place] Urine Protein Urine Glucose (UA) Urine Ketones Urine Blood Urine Nitrite Ur Leukocyte Esterase Urine WBC (Auto) Urine RBC (Auto) 12/12/19 12/12/19 12/12/19 17:15 22:17 22:17 WBC 12.5 H RBC 4.24 Hgb 10.8 L Hct 34.7 L MCV 82 MCH 25.4 L MCHC 31.0 L RDW 18.6 H Plt Count 209 Seg Neutrophils % 68.2 Sodium Potassium Chloride Carbon Dioxide Anion Gap BUN Creatinine Est GFR ( Amer) Glucose Calcium Phosphorus Magnesium Total Bilirubin AST Alkaline Phosphatase Ammonia < 8.7 L Total Protein Albumin Triglycerides Cholesterol LDL Cholesterol Direct VLDL Cholesterol HDL Cholesterol Amylase Lipase TSH 9.99 H Free T4 1.18 Urine Color Urine Appearance Urine pH Ur Specific [place] Urine Protein Urine Glucose (UA) Urine Ketones Urine Blood Urine Nitrite Ur Leukocyte Esterase Urine WBC (Auto) Urine RBC (Auto) 12/13/19 12/13/19 12/13/19 05:01 05:04 05:15 WBC 10.3 RBC 4.07 Hgb 10.5 L Hct 33.3 L MCV 82 MCH 25.8 L MCHC 31.6 L RDW 18.6 H Plt Count 211 Seg Neutrophils % 69.8 Sodium 139.7 Potassium 3.7 Chloride 103 Carbon Dioxide 30 Anion Gap 7 BUN 15 Creatinine 0.63 Est GFR ( Amer) > 60 Glucose 106 Calcium 9.0 Phosphorus Magnesium Total Bilirubin 0.7 AST 18 Alkaline Phosphatase 92 Ammonia Total Protein 5.6 L Albumin 3.0 L Triglycerides 83 Cholesterol 77.17 LDL Cholesterol Direct 42 VLDL Cholesterol 17.0 HDL Cholesterol 31 L Amylase Lipase TSH Free T4 Urine Color DORIS Urine Appearance SLIGHTLY-CLOUDY Urine pH 6.0 Ur Specific [place] 1.025 Urine Protein 30 H Urine Glucose (UA) NEGATIVE Urine Ketones NEGATIVE Urine Blood NEGATIVE Urine Nitrite NEGATIVE Ur Leukocyte Esterase NEGATIVE Urine WBC (Auto) 3 Urine RBC (Auto) 0 12/12/19 12/12/19 12/12/19 17:15 17:15 22:17 Creatine Kinase 36 28 L CK-MB (CK-2) 1.97 Troponin I 0.146 12/12/19 12/13/19 12/13/19 22:17 05:01 05:01 Creatine Kinase 26 L CK-MB (CK-2) 1.36 1.28 Troponin I 0.219 0.270 12/13/19 12/13/19 11:50 11:50 Creatine Kinase 27 L CK-MB (CK-2) 1.18 Troponin I 0.189 Impressions: Chest X-Ray 12/12/19 17:20 IMPRESSION: Right lower lobe consolidation worrisome for pneumonia. Marked cardiomegaly, new compared to 2016 Assessment & Plan - Diagnosis (1) Deep vein thrombosis of right upper extremity Qualifiers: Affected thrombotic vein of extremity: other upper extremity vein Kier Boiler nicity: acute Qualified Code(s): I82.621 - Acute embolism and thrombosis of deep veins of right upper extremity Is this a current diagnosis for this admission?: Yes Plan: Continue IV heparin, there is no need for a work-up for thrombophilia, she will need to continue anticoagulant lifelong (2) Paroxysmal atrial fibrillation with rapid ventricular response Is this a current diagnosis for this admission?: Yes Plan: A 2D echocardiogram is ordered (3) T2DM (type 2 diabetes mellitus) Qualifiers: Diabetes mellitus retirement insulin use: without terminal press operator use Diabetes mellitus complication status: with neurologic complications Diabetes mellitus complication detail: with polyneuropathy Qualified Code(s): E11.42 - Type 2 diabetes mellitus with diabetic polyneuropathy Is this a current diagnosis for this admission?: Yes (4) Morbid obesity Is this a current diagnosis for this admission?: Yes - Time Time Spent with patient: 35 or more minutes Level of Care: IMCU Smoking Cessation Education: over 10 minutes
[2019-12-13] MEDS: HEPARIN SODIUM,PORCINE/D5W 25,000 UNIT/250 ML RTUINJ IV PRN (14:30)
--- NOTE | 2019-12-13 18:29 | RADIOLOGY REPORT (SQ) ---
EXAM DESCRIPTION: CT CHEST WITHOUT COMPLETED DATE/TIME: 12/13/2019 5:04 pm REASON FOR STUDY: Evaluate possible cause or complications of DVT's COMPARISON: Chest radiograph, 12/12/2019 TECHNIQUE: CT scan performed of the chest without intravenous contrast. Images reviewed with lung, soft tissue and bone windows. Reconstructed coronal and sagittal MPR images reviewed. All images st ored on PACS. All CT scanners at this facility use dose modulation, iterative reconstruction, and/or weight based d osing when appropriate to reduce radiation dose to as low as reasonably achievable (ALARA). [facility]: Dose Right [facility]: CareDose [facility]: Dose Right [facility]: Teradose 4D [facility]: [employer] RADIATION DOSE: CT Rad equipment meets quality standard of care and radiation dose reduction techniq ues were employed. CTDIvol: 19.0 mGy. DLP: 707 mGy-cm. mGy. LIMITATIONS: No technical limitations. FINDINGS: LUNGS AND PLEURA: There is a small right pleural effusion with compressive atelectasis at the right lung base. Linear atelectasis in the lingula. No suspicious pulmonary nodules. HILAR AND MEDIASTINAL STRUCTURES: No identified masses or abnormal nodes. No obvious aneurysm. HEART AND VASCULAR STRUCTURES: Moderate cardiomegaly. No pericardial effusion. UPPER ABDOMEN: No significant findings. Limited exam. THYROID AND OTHER SOFT TISSUES: No thyroid nodules. There is subcutaneous edema involving the right breast and right lateral chest wall. Prominent right axillary lymph nodes measuring up to 2.1 x 1.5 cm. No focal drainable abscess. BONES: Spondylosis and degenerative disc disease in the thoracic spine. HARDWARE: None in the chest. OTHER: No other significant findings. IMPRESSION: 1. Small right pleural effusion with compressive atelectasis at the right lung base. 2. Subcutaneous edema involving the right breast and lateral chest wall. 3. Enlarged right axillary lymph nodes may be reactive secondary to the edema. TECHNICAL DOCUMENTATION: JOB ID: [id number] Quality ID # [id number]: Final reports with documentation of one or more dose reduction techniques (e.g., Au tomated exposure control, adjustment of the mA and/or kV according to patient size, use of iterative reconstruction technique) 2010 [employer]- All Rights Reserved Reading location - IP/workstation name: [email or web address]
[2019-12-14 05:15] LABS: ABSOLUTE BASOPHILS # (AUTO) 0.1 10^3/uL (0.0-0.2); ABSOLUTE EOSINOPHILS # (AUTO) 0.1 10^3/uL (0.0-0.6); ABSOLUTE LYMPHOCYTES (AUTO) 1.8 10^3/uL (0.5-4.7); ABSOLUTE MONOCYTES (AUTO) 1.5 10^3/uL (0.1-1.4); ABSOLUTE NEUT (AUTO) 7.9 10^3/uL (1.7-8.2); BASOPHILS % (AUTO) 0.5 % (0-2); EOSINOPHILS % (AUTO) 1.1 % (0-6); HEMATOCRIT 33.4 % (36.0-47.0); HEMOGLOBIN 10.3 g/dL (12.0-15.5); LYMPHOCYTES % (AUTO) 15.7 % (13-45); MEAN CORPUSCULAR HEMOGLOBIN 25.3 pg (27.0-33.4); MEAN CORPUSCULAR HGB CONC 30.9 g/dL (32.0-36.0); MEAN CORPUSCULAR VOLUME 82 fl (80-97); MONOCYTES % (AUTO) 12.9 % (3-13); PLATELET COUNT 257 10^3/uL (150-450); RED BLOOD COUNT 4.08 10^6/uL (3.72-5.28); RED CELL DISTRIBUTION WIDTH 18.3 % (11.5-14.0); SEGMENTED NEUTROPHILS % (AUTO) 69.8 % (42-78); TOTAL CELLS COUNTED % (AUTO) 100 %; WHITE BLOOD COUNT 11.4 10^3/uL (4.0-10.5)
[2019-12-14] MEDS: LEVOTHYROXINE SODIUM 0.088 MG TABLET PO SCH (06:15)
[2019-12-14] MEDS: HEPARIN SODIUM,PORCINE/D5W 25,000 UNIT/250 ML RTUINJ IV PRN (08:07)
[2019-12-14] MEDS: DILTIAZEM HCL/D5W 125 MG/125 ML RTUINJ IV PRN (10:25)
[2019-12-14] MEDS: DULOXETINE HCL 30 MG CAPSULE.DR PO SCH (10:26)
[2019-12-14] MEDS: INSULIN LISPRO 100 UNIT/ML 3 ML VIAL SUBCUT SCH ×4 (10:31→22:37)
--- NOTE | 2019-12-14 13:18 | PDOC PROGRESS REPORT ---
Subjective Progress Note for:: 12/14/19 Subjective:: Patient seen by the bedside, she was admitted for the management of extensive venous thrombosis affecting right upper extremity and also paroxysmal atrial fibrillation with RVR. Yesterday she had a CT scan of the chest, it did not demonstrate any significant pathology. I saw by the bedside this morning she seems comfortable, it is reasonable at this time to transition the IV heparin to Eliquis, loading dose, 10 mg p.o. twice daily for 7 days and then transition down to 5 mg p.o. twice daily for 1 year Reason For Visit: RIGHT UPPER EXTREMITY THROMBOSIS. A-FIB WITH RVR Physical Exam Vital Signs: Temp Pulse Resp BP Pulse Ox 98.0 F 110 H 18 120/89 H 94 12/14/19 10:54 12/14/19 12:56 12/14/19 10:54 12/14/19 12:56 12/14/19 10:54 Intake & Output 12/13/19 12/14/19 12/15/19 06:59 06:59 06:59 Intake Total 419 2365 605 Output Total 150 0 Balance 269 2365 605 Weight 103.2 kg 102.9 kg General appearance: PRESENT: no acute distress Eye exam: PRESENT: PERRLA Respiratory exam: PRESENT: clear to auscultation gunjan Cardiovascular exam: PRESENT: +S1, +S2 GI/Abdominal exam: PRESENT: soft Neurological exam: PRESENT: alert, CN II-XII grossly intact Results Laboratory Results: 12/14/19 04:13 12/13/19 05:01 12/14/19 04:13 WBC 11.4 H RBC 4.08 Hgb 10.3 L Hct 33.4 L MCV 82 MCH 25.3 L MCHC 30.9 L RDW 18.3 H Plt Count 257 Seg Neutrophils % 69.8 12/13/19 05:30 Foot - Diabetic Ulcer Gram Stain - Final 12/13/19 05:15 Clean Catch Midstream Urine Culture - Final Mixed Urogenital Eliza 12/12/19 12/12/19 12/12/19 17:15 17:15 22:17 Creatine Kinase 36 28 L CK-MB (CK-2) 1.97 Troponin I 0.146 12/12/19 12/13/19 12/13/19 22:17 05:01 05:01 Creatine Kinase 26 L CK-MB (CK-2) 1.36 1.28 Troponin I 0.219 0.270 12/13/19 12/13/19 11:50 11:50 Creatine Kinase 27 L CK-MB (CK-2) 1.18 Troponin I 0.189 Impressions: Chest X-Ray 12/12/19 17:20 IMPRESSION: Right lower lobe consolidation worrisome for pneumonia. Marked cardiomegaly, new compared to [address] 12/13/19 14:54 IMPRESSION: 1. Small right pleural effusion with compressive atelectasis at the right lung base. 2. Subcutaneous edema involving the right breast and lateral chest wall. 3. Enlarged right axillary lymph nodes may be reactive secondary to the edema. Assessment & Plan - Diagnosis (1) Deep vein thrombosis of right upper extremity Qualifiers: Affected thrombotic vein of extremity: other upper extremity vein Chronicity: acute Qualified Code(s): I82.621 - Acute embolism and thrombosis of deep veins of right upper extremity Is this a current diagnosis for this admission?: Yes Plan: The intravenous heparin will be discontinued, start patient on Eliquis 10 mg p.o. twice daily for 7 days then 5 mg p.o. twice daily for 1 year then 2.5 mg p.o. 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 fib, she will need echocardiogram to be done tomorrow, discontinue IV Cardizem start p.o. Cardizem (3) T2DM (type 2 diabetes mellitus) Qualifiers: Diabetes mellitus assisted insulin use: without ocean transportation intermediary use Diabetes mellitus complication status: with neurologic complications Diabetes mellitus complication detail: with polyneuropathy Qualified Code(s): E11.42 - Type 2 diabetes mellitus with diabetic polyneuropathy Is this a current diagnosis for this admission?: Yes (4) Morbid obesity Is this a current diagnosis for this admission?: Yes - Time Time Spent with patient: 35 or more minutes - Plan Summary Plan Summary: I explained the plan of care to the patient she endorses understanding of the plan of care
[2019-12-14] MEDS: DILTIAZEM HCL 240 MG CAPSULE.CR PO SCH (14:57)
[2019-12-14] MEDS: APIXABAN 5 MG TABLET PO SCH ×2 (14:57→18:05)
[2019-12-14] MEDS: ATORVASTATIN CALCIUM 40 MG TABLET PO SCH (22:39)
[2019-12-15] MEDS: DILTIAZEM HCL/D5W 125 MG/125 ML RTUINJ IV PRN (03:44)
[2019-12-15 05:16] LABS: ABSOLUTE EOSINOPHILS # (AUTO) 0.1 10^3/uL (0.0-0.6); ABSOLUTE LYMPHOCYTES (AUTO) 1.2 10^3/uL (0.5-4.7); ABSOLUTE MONOCYTES (AUTO) 1.2 10^3/uL (0.1-1.4); ABSOLUTE NEUT (AUTO) 6.5 10^3/uL (1.7-8.2); BASOPHILS % (AUTO) 0.4 % (0-2); HEMATOCRIT 33.4 % (36.0-47.0); HEMOGLOBIN 10.3 g/dL (12.0-15.5); LYMPHOCYTES % (AUTO) 13.8 % (13-45); MEAN CORPUSCULAR HEMOGLOBIN 25.1 pg (27.0-33.4); MEAN CORPUSCULAR HGB CONC 30.8 g/dL (32.0-36.0); MEAN CORPUSCULAR VOLUME 81 fl (80-97); MONOCYTES % (AUTO) 12.8 % (3-13); PLATELET COUNT 295 10^3/uL (150-450); TOTAL CELLS COUNTED % (AUTO) 100 %
[2019-12-15] MEDS: LEVOTHYROXINE SODIUM 0.088 MG TABLET PO SCH (06:03)
[2019-12-15] MEDS: INSULIN LISPRO 100 UNIT/ML 3 ML VIAL SUBCUT SCH ×4 (08:34→22:03)
[2019-12-15] MEDS: DILTIAZEM HCL 240 MG CAPSULE.CR PO SCH (09:48)
[2019-12-15] MEDS: APIXABAN 5 MG TABLET PO SCH ×2 (09:49→17:56)
[2019-12-15] MEDS: CEFEPIME 1 GM/D5W RTU 1 GM/50 ML RTUPB IV SCH ×2 (09:49→22:03)
[2019-12-15] MEDS: DULOXETINE HCL 30 MG CAPSULE.DR PO SCH (09:49)
--- NOTE | 2019-12-15 17:11 | PDOC PROGRESS REPORT ---
Subjective Progress Note for:: 12/15/19 Subjective:: Patient was admitting in the hospital for the right upper extremity DVT Patient was started on Eliquis Also having new onset of A. fib currently on a Cardizem Eliquis Patient is have a high chads score due to the history of the stroke in the past and significant peripheral vascular disease and diabetes as per discussed with the cardiology patients need a lifelong anticoagulations Patient's significant history of peripheral vascular disease currently seeing a vascular surgeon at [facility] Is a very noncompliance to follow-up Patient also wound cultures bacteria started on IV antibiotic and Asked the surgery to further evaluate Reason For Visit: RIGHT UPPER EXTREMITY THROMBOSIS. A-FIB WITH RVR Physical Exam Vital Signs: Temp Pulse Resp BP Pulse Ox 98.0 F 113 H 18 124/106 H 94 12/15/19 11:40 12/15/19 15:00 12/15/19 11:40 12/15/19 15:00 12/15/19 11:40 Intake & Output 12/14/19 12/15/19 12/16/19 06:59 06:59 06:59 Intake Total 2365 1230 530 Output Total 0 300 0 Balance 2365 930 530 Weight 102.9 kg 102.7 kg General appearance: PRESENT: no acute distress, well-developed, well-nourished Head exam: PRESENT: atraumatic, normocephalic Eye exam: PRESENT: conjunctiva pink, EOMI, PERRLA. ABSENT: scleral icterus Ear exam: PRESENT: normal external ear exam Mouth exam: PRESENT: moist, tongue midline Neck exam: PRESENT: full ROM. ABSENT: carotid bruit, JVD, lymphadenopathy, thyr omegaly Respiratory exam: PRESENT: clear to auscultation gunjan Cardiovascular exam: PRESENT: RRR. ABSENT: diastolic murmur, rubs, systolic murmur Pulses: PRESENT: normal dorsalis pedis pul, +2 pedal pulses bilateral Vascular exam: PRESENT: normal capillary refill GI/Abdominal exam: PRESENT: normal bowel sounds, soft. ABSENT: distended, guarding, mass, organolmegaly, rebound, tenderness Rectal exam: PRESENT: deferred Neurological exam: PRESENT: alert, awake, oriented to person, oriented to place, oriented to time, oriented to situation, CN II-XII grossly intact. ABSENT: motor sensory deficit Psychiatric exam: PRESENT: appropriate affect, normal mood. ABSENT: homicidal ideation, suicidal ideation Skin exam: PRESENT: dry, intact, warm. ABSENT: cyanosis, rash Additional comments: Upper extremity significant swelling of the extremity and some mild redness of the wound is present in the upper extremities Results Laboratory Results: 12/15/19 04:39 12/13/19 05:01 12/15/19 04:39 WBC 9.0 RBC 4.10 Hgb 10.3 L Hct 33.4 L MCV 81 MCH 25.1 L MCHC 30.8 L RDW 19.0 H Plt Count 295 Seg Neutrophils % 72.0 12/13/19 05:30 Foot - Diabetic Ulcer Gram Stain - Final 12/12/19 12/12/19 12/12/19 17:15 17:15 22:17 Creatine Kinase 36 28 L CK-MB (CK-2) 1.97 Troponin I 0.146 12/12/19 12/13/19 12/13/19 22:17 05:01 05:01 Creatine Kinase 26 L CK-MB (CK-2) 1.36 1.28 Troponin I 0.219 0.270 12/13/19 12/13/19 11:50 11:50 Creatine Kinase 27 L CK-MB (CK-2) 1.18 Troponin I 0.189 Impressions: Chest X-Ray 12/12/19 17:20 IMPRESSION: Right lower lobe consolidation worrisome for pneumonia. Marked cardiomegaly, new compared to [address] 12/13/19 14:54 IMPRESSION: 1. Small right pleural effusion with compressive atelectasis at the right lung base. 2. Subcutaneous edema involving the right breast and lateral chest wall. 3. Enlarged right axillary lymph nodes may be reactive secondary to the edema. Assessment & Plan - Diagnosis (1) Atrial fibrillation with rapid ventricular response Is this a current diagnosis for this admission?: Yes Plan: Currently on a Cardizem's and continues the Eliquis echocardiogram is ordered (2) DVT of axillary vein, acute right Is this a current diagnosis for this admission?: Yes Plan: Continues the Eliquis (3) Deep vein thrombosis of right upper extremity Qualifiers: Affected thrombotic vein of extremity: other upper extremity vein Chronicity: acute Qualified Code(s): I82.621 - Acute embolism and thrombosis of deep veins of right upper extremity Is this a current diagnosis for this admission?: Yes Plan: Continues Eliquis (4) T2DM (type 2 diabetes mellitus) Qualifiers: Diabetes mellitus long term care phlebotomist insulin use: without [facility] use Diabetes mellitus complication status: with neurologic complications Diabetes mellitus complication detail: with polyneuropathy Qualified Code(s): E11.42 - Type 2 diabetes mellitus with diabetic polyneuropathy Is this a current diagnosis for this admission?: Yes Plan: Continue sliding-scale (5) CVA (cerebral vascular accident) Qualifiers: CVA mechanism: unspecified Qualified Code(s): I63.9 - Cerebral infarction, unspecified Is this a current diagnosis for this admission?: Yes (6) Hypothyroidism Qualifiers: Hypothyroidism type: unspecified Qualified Code(s): E03.9 - Hypothyroidism, unspecified Is this a current diagnosis for this admission?: Yes (7) Peripheral vascular disease Is this a current diagnosis for this admission?: Yes Plan: Patient is currently see a vascular surgery at [facility] (8) Tobacco abuse Is this a current diagnosis for this admission?: Yes Plan: Discussed with the patient about smoking counseling (9) Dyslipidemia Is this a current diagnosis for this admission?: Yes (10) Wound of right upper extremity Qualifiers: Encounter type: initial encounter Qualified Code(s): S41.101A - Unspecified open wound of right upper arm, initial encounter Is this a current diagnosis for this admission?: Yes Plan: Start the patient on IV antibiotic to further evaluateBy surgery - Time Time Spent with patient: 15-24 minutes Level of Care: IMCU Medications reviewed and adjusted accordingly: Yes Anticipated discharge: Other Within: Other - Plan Summary Plan Summary: See MD orders
--- NOTE | 2019-12-15 18:22 | PDOC CONSULTATION ---
Consultation Consult Date: 12/15/19 Attending physician:: NICOLASA COOLEY Provider Consulted: PITA HARTMAN Consult reason:: DVT right upper extremity;. Discolored toes History of Present Illness Admission Date/PCP: 12/12/19 20:15 NICOLASA COOLEY MD History of Present Illness: JOSH TOLBERT is a 64 year old female Presents emergency department via ground rescue complaining of right upper extremity swelling. She was diagnosed with acute, extensive right upper extremi ty DVT was admitted to the hospital, anticoagulated, initially with heparin, then with 10 a inhibitor. Patient has a history of trauma secondary to multiple animal bites and scratches to the upper extremities right greater than left. Patient has history of smoking diabetes and peripheral vascular disease, history of left carotid endarterectomy by Dr. Razo in [place]. Patient has history of stroke with right upper extremity and right lower extremity dysfunction. She has no sensation in her feet. She is being managed for atrial fibrillation with the Cardizem. Past Medical History Cardiac Medical History: Reports: Hyperlipidema, Hypertension Endocrine Medical History: Reports: Diabetes Mellitus Type 2, Hypothyroidism Psychiatric Medical History: Reports: Depression Past Surgical History Past Surgical History: Reports: Carotid Endarterectomy - Left Social History Smoking Status: Current Some Day Smoker Electronic Cigarette use?: No Frequency of Alcohol Use: Rare Hx Recreational Drug Use: No Drugs: None Hx Prescription Drug Abuse: No Family History Family History: None, Reviewed & Not Pertinent Parental Family History Reviewed: No Children Family History Reviewed: No Sibling(s) Family History Reviewed.: No Medication/Allergy Home Medications: Aspirin [Aspirin 325 mg Tablet] 325 mg PO DAILY 12/12/19 Atorvastatin Calcium [Lipitor 40 mg Tablet] 40 mg PO QHS 12/12/19 Duloxetine HCl [Cymbalta] 60 mg PO DAILY 12/12/19 Fluticasone Propionate [Flonase Nasal [place] 50 Mcg/[place] 16 gm] 1 spray NASL DAILY 12/12/19 Ibuprofen [Motrin 800 mg Tablet] 800 mg PO Q12HP PRN 12/12/19 Levothyroxine Sodium 88 mcg PO Q6AM 12/12/19 Lisinopril [Zestril] 5 mg PO DAILY 12/12/19 Metformin HCl [Glucophage 500 mg Tablet] 1,000 mg PO QPM 12/12/19 Metformin HCl [Glucophage 500 mg Tablet] 500 mg PO QAM 12/12/19 Oxycodone HCl/Acetaminophen [Percocet 5-325 mg Tablet] 1 tab PO Q6HP PRN 12/12/19 Allergies/Adverse Reactions: pseudoephedrine [Pseudoephedrine] Allergy (Verified 12/12/19 16:50) IVP DYE Allergy (Uncoded 06/22/18 09:36) Review of Systems Constitutional: PRESENT: as per HPI Eyes: ABSENT: visual disturbances Ears: ABSENT: hearing changes Gastrointestinal: PRESENT: bloating Musculoskeletal: PRESENT: other - Impaired ambulation secondary to right lower extremity neuropathy Neurological: PRESENT: as per HPI Physical Exam Vital Signs: Temp Pulse Resp BP Pulse Ox 98.0 F 108 H 18 114/65 94 12/15/19 11:40 12/15/19 17:00 12/15/19 11:40 12/15/19 17:00 12/15/19 11:40 Intake & Output 12/14/19 12/15/19 12/16/19 06:59 06:59 06:59 Intake Total 2365 1230 890 Output Total 0 300 0 Balance 2365 930 890 Weight 102.9 kg 102.7 kg General appearance: PRESENT: mild distress Head exam: PRESENT: normocephalic Eye exam: PRESENT: EOMI Mouth exam: PRESENT: dry mucosa Neck exam: PRESENT: full ROM, other - Scar on left neck Respiratory exam: PRESENT: other - Irregularly irregular Cardiovascular exam: PRESENT: irregular rhythm - Irregular, rapid Pulses: PRESENT: normal carotid pulses, normal radial pulses, normal femoral pulses, other - Unable to feel pulses in the feet. GI/Abdominal exam: PRESENT: soft Rectal exam: PRESENT: deferred Musculoskeletal exam: PRESENT: other - Moderate to severe edema right upper extremity; well-healed wounds from previous traumatic lacerations. Lower extremity is examined. Chronic edema from the pretibial region to the ankles and feet. There is a right first mal perforans ulcer,: All toes of the right foot ischemic with delayed capillary refill violaceous changes, right great toe worse; no open ulcers on the toes. Left foot examined. Unable to palpate pulses. Feet and toes are cool with delayed capillary refill. Psychiatric exam: PRESENT: appropriate affect Results Laboratory Results: 12/15/19 04:39 12/13/19 05:01 12/15/19 04:39 WBC 9.0 RBC 4.10 Hgb 10.3 L Hct 33.4 L MCV 81 MCH 25.1 L MCHC 30.8 L RDW 19.0 H Plt Count 295 Seg Neutrophils % 72.0 12/13/19 05:30 Foot - Diabetic Ulcer Gram Stain - Final 12/12/19 12/12/19 12/12/19 17:15 17:15 22:17 Creatine Kinase 36 28 L CK-MB (CK-2) 1.97 Troponin I 0.146 12/12/19 12/13/19 12/13/19 22:17 05:01 05:01 Creatine Kinase 26 L CK-MB (CK-2) 1.36 1.28 Troponin I 0.219 0.270 12/13/19 12/13/19 11:50 11:50 Creatine Kinase 27 L CK-MB (CK-2) 1.18 Troponin I 0.189 Impressions: Chest X-Ray 12/12/19 17:20 IMPRESSION: Right lower lobe consolidation worrisome for pneumonia. Marked cardiomegaly, new compared to [address] 12/13/19 14:54 IMPRESSION: 1. Small right pleural effusion with compressive atelectasis at the right lung base. 2. Subcutaneous edema involving the right breast and lateral chest wall. 3. Enlarged right axillary lymph nodes may be reactive secondary to the edema. Assessment & Plan - Diagnosis (1) Ischemic ulcer of toes on both feet Is this a current diagnosis for this admission?: Yes Plan: Impression: Right lower extremity ischemic changes to all 5 toes, worse right great toe; chronic mal perforans ulcer first metatarsal head; mild chronic hypoperfusion left toes. Worrisome given patient is anticoagulated for right upper extremity DVT patient with history of diabetes, hypertension, referral vascular disease, and smoking abuse Recommendations: 1. I discussed with patient, as well as Dr. Cooley, current situation regarding the patient's feet, particularly the right foot with the ischemic changes. I believe she needs to be referred to interventional vascular radiology versus surgery for arteriography, possible angioplasty possible stent placement pending pathologic findings 2. Continue anticoagulation therapy. Right upper extremity appears improved clinically based on patient and staff report. (2) Atrial fibrillation with rapid ventricular response Is this a current diagnosis for this admission?: Yes (3) DVT of axillary vein, acute right Is this a current diagnosis for this admission?: Yes (4) Morbid obesity Is this a current diagnosis for this admission?: Yes (5) Peripheral vascular disease Is this a current diagnosis for this admission?: Yes (6) Stroke Is this a current diagnosis for this admission?: Yes (7) Tobacco abuse Is this a current diagnosis for this admission?: Yes
[2019-12-15] MEDS: ATORVASTATIN CALCIUM 40 MG TABLET PO SCH (22:04)
[2019-12-16] MEDS: DILTIAZEM HCL/D5W 125 MG/125 ML RTUINJ IV PRN ×2 (01:35→12:30)
[2019-12-16] MEDS ORDERED: ONDANSETRON HCL INJ/PF 4 MG/2 ML SDV ONE (03:09)
[2019-12-16] MEDS: LEVOTHYROXINE SODIUM 0.088 MG TABLET PO SCH (05:08)
[2019-12-16] MEDS ORDERED: ONDANSETRON HCL INJ/PF 4 MG/2 ML SDV IV PRN (05:58)
--- NOTE | 2019-12-16 05:59 | PDOC CONSULTATION ---
Consultation Consult Date: 12/15/19 Attending physician:: NICOLASA GREEN Provider Consulted: TERRY VARGAS Consult reason:: Right upper extremity DVT. Atrial fibrillation History of Present Illness Admission Date/PCP: 12/12/19 20:15 NICOLASA GREEN MD Patient complains of: Right upper extremity pain and swelling History of Present Illness: JOSH TOLBERT is a 64 year old female With medical history of peripheral vascular disease status post left carotid endarterectomy, diabetes mellitus, CVA in the past who initially presented to primary care physician's office with complaints of right upper extremity swelling and pain. She was also tachycardic at that time and was found to be in atrial fibrillation with rapid ventricular response. There is no prior history of documented atrial fibrillation although patient reports PVCs and therapy for same. There is no history of coronary artery disease. Patient reports multiple animal bites and scratches to both extremities. The right upper extremity is particularly scarred and has multiple old abrasions which appear to be healing. Presently she complains of pain and swelling and right upper extremity DVT was confirmed. She has been initiated on systemic anticoagulation. She was initiated on oral diltiazem and had to be initiated on intravenous diltiazem for better rate control of atrial fibrillation. She does not report palpitations, dyspnea, chest pain or fatigue. There is no report of syncope. Patient continues to smoke cigarettes. No familial illnesses reported. Past Medical History Cardiac Medical History: Reports: Hyperlipidema, Hypertension Endocrine Medical History: Reports: Diabetes Mellitus Type 2, Hypothyroidism Psychiatric Medical History: Reports: Attention Deficit Hyperactivity Disorder, Depression Past Surgical History Past Surgical History: Reports: Carotid Endarterectomy - Left Social History Smoking Status: Current Some Day Smoker Electronic Cigarette use?: No Frequency of Alcohol Use: Rare Hx Recreational Drug Use: No Drugs: None Hx Prescription Drug Abuse: No Family History Family History: None, Reviewed & Not Pertinent Parental Family History Reviewed: No - No familial illnesses Children Family History Reviewed: NA Sibling(s) Family History Reviewed.: NA Medication/Allergy Home Medications: Aspirin [Aspirin 325 mg Tablet] 325 mg PO DAILY 12/12/19 Atorvastatin Calcium [Lipitor 40 mg Tablet] 40 mg PO QHS 12/12/19 Duloxetine HCl [Cymbalta] 60 mg PO DAILY 12/12/19 Fluticasone Propionate [Flonase Nasal [place] 50 Mcg/[place] 16 gm] 1 spray NASL DAILY 12/12/19 Ibuprofen [Motrin 800 mg Tablet] 800 mg PO Q12HP PRN 12/12/19 Levothyroxine Sodium 88 mcg PO Q6AM 12/12/19 Lisinopril [Zestril] 5 mg PO DAILY 12/12/19 Metformin HCl [Glucophage 500 mg Tablet] 1,000 mg PO QPM 12/12/19 Metformin HCl [Glucophage 500 mg Tablet] 500 mg PO QAM 12/12/19 Oxycodone HCl/Acetaminophen [Percocet 5-325 mg Tablet] 1 tab PO Q6HP PRN 12/12/19 Allergies/Adverse Reactions: pseudoephedrine [Pseudoephedrine] Allergy (Verified 12/12/19 16:50) IVP DYE Allergy (Uncoded 06/22/18 09:36) Review of Systems Eyes: PRESENT: as per HPI Cardiovascular: PRESENT: as per HPI Respiratory: PRESENT: as per HPI Gastrointestinal: PRESENT: as per HPI Neurological: PRESENT: as per HPI Physical Exam Vital Signs: Temp Pulse Resp BP Pulse Ox 97.8 F 139 H 20 119/70 92 12/16/19 03:56 12/16/19 05:00 12/16/19 03:56 12/16/19 05:00 12/16/19 03:56 Intake & Output 12/14/19 12/15/19 12/16/19 06:59 06:59 06:59 Intake Total 2365 1230 1605 Output Total 0 300 300 Balance 2365 930 1305 Weight 102.9 kg 102.7 kg 102.7 kg General appearance: PRESENT: no acute distress, cooperative, obese Head exam: PRESENT: atraumatic, normocephalic Eye exam: PRESENT: conjunctiva pink, EOMI Respiratory exam: PRESENT: clear to auscultation gunjan, symmetrical, unlabored Cardiovascular exam: PRESENT: irregular rhythm, +S1, +S2 GI/Abdominal exam: PRESENT: soft Rectal exam: PRESENT: deferred Neurological exam: PRESENT: alert, awake, oriented to person, oriented to place, oriented to time, oriented to situation Skin exam: PRESENT: dry, skin tears Results Laboratory Results: 12/15/19 04:39 12/13/19 05:30 Foot - Diabetic Ulcer Gram Stain - Final 12/12/19 12/12/19 12/12/19 17:15 17:15 22:17 Creatine Kinase 36 28 L CK-MB (CK-2) 1.97 Troponin I 0.146 12/12/19 12/13/19 12/13/19 22:17 05:01 05:01 Creatine Kinase 26 L CK-MB (CK-2) 1.36 1.28 Troponin I 0.219 0.270 12/13/19 12/13/19 11:50 11:50 Creatine Kinase 27 L CK-MB (CK-2) 1.18 Troponin I 0.189 EKG Comments: Telemetry shows atrial fibrillation with rapid ventricular response in the low 100 bpm range. Twelve-lead EKG shows atrial fibrillation with rapid ventricular response Impressions: Chest X-Ray 12/12/19 17:20 IMPRESSION: Right lower lobe consolidation worrisome for pneumonia. Marked cardiomegaly, new compared to [address] 12/13/19 14:54 IMPRESSION: 1. Small right pleural effusion with compressive atelectasis at the right lung base. 2. Subcutaneous edema involving the right breast and lateral chest wall. 3. Enlarged right axillary lymph nodes may be reactive secondary to the edema. Assessment & Plan - Diagnosis (1) Atrial fibrillation with rapid ventricular response Is this a current diagnosis for this admission?: Yes Plan: Rate control measures Continue intravenous diltiazem. Can be weaned off and start on oral diltiazem Especially with prior history of stroke and diabetes mellitus and peripheral vascular disease systemic anticoagulation should be continued indefinitely. Continue apixaban 5 mg twice daily Can discuss rhythm control options as an outpatient (2) DVT of axillary vein, acute right Is this a current diagnosis for this admission?: Yes Plan: Systemic anticoagulation has been initiated. Patient probably needs hematology evaluation for unprovoked upper extremity DVT which is rather unusual and unlikely to be embolic (3) T2DM (type 2 diabetes mellitus) Qualifiers: Diabetes mellitus jail insulin use: without jail use Diabetes mellitus complication status: with neurologic complications Diabetes mellitus complication detail: with polyneuropathy Qualified Code(s): E11.42 - Type 2 diabetes mellitus with diabetic polyneuropathy Is this a current diagnosis for this admission?: Yes Plan: Treatment has been instituted (4) CVA (cerebral vascular accident) Qualifiers: CVA mechanism: unspecified Qualified Code(s): I63.9 - Cerebral infarction, unspecified Is this a current diagnosis for this admission?: Yes Plan: Prior history of CVA Indefinite systemic anticoagulation especially with new onset atrial fibrillation
[2019-12-16 06:00] LABS: ANION GAP 7 (5-19); BLOOD UREA NITROGEN 11 mg/dL (7-20); CARBON DIOXIDE 30 mmol/L (22-30); CHLORIDE 101 mmol/L (98-107); GLUCOSE 166 mg/dL (75-110); POTASSIUM 3.9 mmol/L (3.6-5.0)
[2019-12-16] MEDS ORDERED: ONDANSETRON HCL INJ/PF 4 MG/2 ML SDV IV ONE (06:30)
[2019-12-16] MEDS: INSULIN LISPRO 100 UNIT/ML 3 ML VIAL SUBCUT SCH ×2 (08:41→12:36)
--- NOTE | 2019-12-16 08:58 | PDOC CONSULTATION ---
Consultation Consult Date: 12/16/19 Provider Consulted: ALEXIS VALDES Consult reason:: Hematology/Oncology consultation was requested for patient with new Right upper extremity DVT. History of Present Illness Admission Date/PCP: 12/12/19 20:15 NICOLASA GREEN MD History of Present Illness: JOSH TOLBERT is a 64 year old female with peripheral vascular disease who presented with a 2-3 day history of right upper extremity swelling. She denies any recent injury to the arm. No pain, just swelling. She does have several "dog bites" on the same arm which have caused bruises and open lesions. However, these appear old. Patient states that she has had some dyspnea, but no chest pains. She has had mammogram and colonoscopy in the past, but does not remember when. Since admission, she has been found to be in A-fib. She was started on Eliquis 10 mg po BID. Currently without evidence of bleeding. Past Medical History Cardiac Medical History: Reports: Hyperlipidema, Hypertension Endocrine Medical History: Reports: Diabetes Mellitus Type 2, Hypothyroidism Psychiatric Medical History: Reports: Attention Deficit Hyperactivity Disorder, Depression Past Surgical History Past Surgical History: Reports: Carotid Endarterectomy - Left Social History Information Source: Patient Smoking Status: Current Some Day Smoker Electronic Cigarette use?: No Frequency of Alcohol Use: Rare Hx Recreational Drug Use: No Drugs: None Hx Prescription Drug Abuse: No Family History Family History: None Parental Family History Reviewed: Yes Children Family History Reviewed: No Sibling(s) Family History Reviewed.: Yes Medication/Allergy Home Medications: Aspirin [Aspirin 325 mg Tablet] 325 mg PO DAILY 12/12/19 Atorvastatin Calcium [Lipitor 40 mg Tablet] 40 mg PO QHS 12/12/19 Duloxetine HCl [Cymbalta] 60 mg PO DAILY 12/12/19 Fluticasone Propionate [Flonase Nasal [place] 50 Mcg/[place] 16 gm] 1 spray NASL DAILY 12/12/19 Ibuprofen [Motrin 800 mg Tablet] 800 mg PO Q12HP PRN 12/12/19 Levothyroxine Sodium 88 mcg PO Q6AM 12/12/19 Lisinopril [Zestril] 5 mg PO DAILY 12/12/19 Metformin HCl [Glucophage 500 mg Tablet] 1,000 mg PO QPM 12/12/19 Metformin HCl [Glucophage 500 mg Tablet] 500 mg PO QAM 12/12/19 Oxycodone HCl/Acetaminophen [Percocet 5-325 mg Tablet] 1 tab PO Q6HP PRN 12/12/19 Allergies/Adverse Reactions: pseudoephedrine [Pseudoephedrine] Allergy (Verified 12/12/19 16:50) IVP DYE Allergy (Uncoded 06/22/18 09:36) Review of Systems Constitutional: ABSENT: fever(s), headache(s) Eyes: ABSENT: visual disturbances Ears: ABSENT: hearing changes Nose, Mouth, and Throat: ABSENT: sore throat Cardiovascular: ABSENT: chest pain Respiratory: PRESENT: dyspnea Gastrointestinal: ABSENT: abdominal pain, constipation, nausea Genitourinary: ABSENT: dysuria Musculoskeletal: PRESENT: as per HPI Integumentary: PRESENT: as per HPI Neurological: ABSENT: weakness Hematologic/Lymphatic: ABSENT: easy bleeding Physical Exam Vital Signs: Temp Pulse Resp BP Pulse Ox 98.0 F 76 18 136/80 H 88 L 12/16/19 07:40 12/16/19 07:40 12/16/19 07:40 12/16/19 07:40 12/16/19 07:40 Intake & Output 12/15/19 12/16/19 12/17/19 06:59 06:59 06:59 Intake Total 1230 1605 Output Total 300 600 Balance 930 1005 Weight 102.7 kg 102.7 kg General appearance: PRESENT: no acute distress, obese, well-developed Exam: 64 year old female. Head exam: PRESENT: atraumatic, normocephalic Eye exam: PRESENT: EOMI Mouth exam: PRESENT: tongue midline Neck exam: ABSENT: lymphadenopathy, tenderness Respiratory exam: PRESENT: clear to auscultation gunjan, unlabored Cardiovascular exam: PRESENT: irregular rhythm GI/Abdominal exam: PRESENT: soft. ABSENT: tenderness Extremities exam: PRESENT: other - Right upper extremity with edema. Mild erythema. No palpable cords. Some areas of excoriation. Echymoses upper arm. Neurological exam: PRESENT: alert, awake Psychiatric exam: PRESENT: appropriate affect Skin exam: PRESENT: normal color Additional comments: Breast exam was performed with her nurse in the room. No palpable lesions bilaterally. No palpable axillary adenopathy. Some edema right breast. Results Laboratory Results: 12/15/19 04:39 12/16/19 05:01 12/16/19 05:01 Sodium 138.0 Potassium 3.9 Chloride 101 Carbon Dioxide 30 Anion Gap 7 BUN 11 Creatinine 0.62 Est GFR ( Amer) > 60 Glucose 166 H Calcium 9.0 12/13/19 05:30 Foot - Diabetic Ulcer Gram Stain - Final 12/12/19 12/12/19 12/12/19 17:15 17:15 22:17 Creatine Kinase 36 28 L CK-MB (CK-2) 1.97 Troponin I 0.146 12/12/19 12/13/19 12/13/19 22:17 05:01 05:01 Creatine Kinase 26 L CK-MB (CK-2) 1.36 1.28 Troponin I 0.219 0.270 12/13/19 12/13/19 11:50 11:50 Creatine Kinase 27 L CK-MB (CK-2) 1.18 Troponin I 0.189 Impressions: Chest X-Ray 12/12/19 17:20 IMPRESSION: Right lower lobe consolidation worrisome for pneumonia. Marked cardiomegaly, new compared to [address] 12/13/19 14:54 IMPRESSION: 1. Small right pleural effusion with compressive atelectasis at the right lung base. 2. Subcutaneous edema involving the right breast and lateral chest wall. 3. Enlarged right axillary lymph nodes may be reactive secondary to the edema. Status: Image reviewed by me Assessment & Plan - Diagnosis (1) Atrial fibrillation with rapid ventricular response Is this a current diagnosis for this admission?: Yes Plan: As per primary team. (2) Deep vein thrombosis of right upper extremity Qualifiers: Affected thrombotic vein of extremity: other upper extremity vein Chronicity: acute Qualified Code(s): I82.621 - Acute embolism and thrombosis of deep veins of right upper extremity Is this a current diagnosis for this admission?: Yes Plan: I agree with Eliquis 10 mg PO BID for now. We discussed diagnosis and possible causes in detail. I have explained that she is now at higher risk of developing another blood clot. We discussed the importance of compliance with the blood thinners. I would check mammogram in a few weeks to rule out occult breast cancer. - Plan Summary Plan Summary: I will be happy to follow her with you. Please call with any concerns. Patient was discussed with Dr. Green.
--- NOTE | 2019-12-16 10:09 | PDOC PROGRESS REPORT ---
Subjective Progress Note for:: 12/16/19 Subjective:: Patient is currently doing fair Since earlier complaining some nauseating but currently denied any symptoms No abdominal pain no chest pain no short of breath Still on a Cardizem drips for the A. fib Patient also seen by the general surgery yesterday and suggest the right leg ischemic changes And suggest the patient's neurovascular evaluations and discussed with the vascular surgeon at [place] Dr.bell Sampson he accepted him as a transfer but patient medical problems we will consult the hospitalist to admit the patient's Discussed with the patient about the transport and patient is agree Patient also see a Dr. Rico the cardiology over there also Reason For Visit: RIGHT UPPER EXTREMITY THROMBOSIS. A-FIB WITH RVR Physical Exam Vital Signs: Temp Pulse Resp BP Pulse Ox 98.0 F 76 18 136/80 H 88 L 12/16/19 07:40 12/16/19 07:40 12/16/19 07:40 12/16/19 07:40 12/16/19 07:40 Intake & Output 12/15/19 12/16/19 12/17/19 06:59 06:59 06:59 Intake Total 1230 1605 Output Total 300 600 Balance 930 1005 Weight 102.7 kg 102.7 kg General appearance: PRESENT: no acute distress, well-developed, well-nourished Head exam: PRESENT: atraumatic, normocephalic Eye exam: PRESENT: conjunctiva pink, EOMI, PERRLA. ABSENT: scleral icterus Ear exam: PRESENT: normal external ear exam Mouth exam: PRESENT: moist, tongue midline Neck exam: PRESENT: full ROM. ABSENT: carotid bruit, JVD, lymphadenopathy, thyromegaly Cardiovascular exam: PRESENT: irregular rhythm, RRR. ABSENT: diastolic murmur, rubs, systolic murmur Pulses: PRESENT: normal dorsalis pedis pul, +2 pedal pulses bilateral Vascular exam: PRESENT: normal capillary refill GI/Abdominal exam: PRESENT: normal bowel sounds, soft. ABSENT: distended, guarding, mass, organolmegaly, rebound, tenderness Rectal exam: PRESENT: deferred Neurological exam: PRESENT: alert, awake, oriented to person, oriented to place, oriented to time, oriented to situation, CN II-XII grossly intact. ABSENT: motor sensory deficit Psychiatric exam: PRESENT: appropriate affect, normal mood. ABSENT: homicidal ideation, suicidal ideation Skin exam: PRESENT: dry, intact, warm. ABSENT: cyanosis, rash Results Laboratory Results: 12/15/19 04:39 12/16/19 05:01 12/16/19 05:01 Sodium 138.0 Potassium 3.9 Chloride 101 Carbon Dioxide 30 Anion Gap 7 BUN 11 Creatinine 0.62 Est GFR ( Amer) > 60 Glucose 166 H Calcium 9.0 12/13/19 05:30 Foot - Diabetic Ulcer Gram Stain - Final 12/13/19 05:30 Foot - Diabetic Ulcer Wound Culture - Final Alcaligenes Species Serratia Marcescens Citrobacter Freundii 12/12/19 12/12/19 12/12/19 17:15 17:15 22:17 Creatine Kinase 36 28 L CK-MB (CK-2) 1.97 Troponin I 0.146 12/12/19 12/13/19 12/13/19 22:17 05:01 05:01 Creatine Kinase 26 L CK-MB (CK-2) 1.36 1.28 Troponin I 0.219 0.270 12/13/19 12/13/19 11:50 11:50 Creatine Kinase 27 L CK-MB (CK-2) 1.18 Troponin I 0.189 Impressions: Chest X-Ray 12/12/19 17:20 IMPRESSION: Right lower lobe consolidation worrisome for pneumonia. Marked cardiomegaly, new compared to [address] 12/13/19 14:54 IMPRESSION: 1. Small right pleural effusion with compressive atelectasis at the right lung base. 2. Subcutaneous edema involving the right breast and lateral chest wall. 3. Enlarged right axillary lymph nodes may be reactive secondary to the edema. Assessment & Plan - Diagnosis (1) Atrial fibrillation with rapid ventricular response Is this a current diagnosis for this admission?: Yes Plan: Continues to Cardizem drips continues to Eliquis (2) DVT of axillary vein, acute right Is this a current diagnosis for this admission?: Yes Plan: Continues to Eliquis seen by forklift operator and suggest the continues the medicines (3) Deep vein thrombosis of right upper extremity Qualifiers: Affected thrombotic vein of extremity: other upper extremity vein Chronicity: acute Qualified Code(s): I82.621 - Acute embolism and thrombosis of deep veins of right upper extremity Is this a current diagnosis for this admission?: Yes (4) T2DM (type 2 diabetes mellitus) Qualifiers: Diabetes mellitus [facility] insulin use: without long term care social worker use Diabetes mellitus complication status: with neurologic complications Diabetes mellitus complication detail: with polyneuropathy Qualified Code(s): E11.42 - Type 2 diabetes mellitus with diabetic polyneuropathy Is this a current diagnosis for this admission?: Yes Plan: Continues a sliding scales (5) CVA (cerebral vascular accident) Qualifiers: CVA mechanism: unspecified Qualified Code(s): I63.9 - Cerebral infarction, unspecified Is this a current diagnosis for this admission?: Yes Plan: Patient's chads score is very high patient is been a lifelong anticoagulations (6) Hypothyroidism Qualifiers: Hypothyroidism type: unspecified Qualified Code(s): E03.9 - Hypothyroidism, unspecified Is this a current diagnosis for this admission?: Yes (7) Peripheral vascular disease Is this a current diagnosis for this admission?: Yes Plan: Patient with significant ischemic foot changes possible transfer to the [facility] when the bed available (8) Tobacco abuse Is this a current diagnosis for this admission?: Yes Plan: Counseling about the Smoking (9) Dyslipidemia Is this a current diagnosis for this admission?: Yes (10) Wound of right upper extremity Qualifiers: Encounter type: initial encounter Qualified Code(s): S41.101A - Unspecified open wound of right upper arm, initial encounter Is this a current diagnosis for this admission?: Yes - Time Time Spent with patient: 15-24 minutes Level of Care: IMCU Anticipated discharge: [facility] Within: when bed available, Other - Plan Summary Plan Summary: Continues to IV antibiotic for the foot ulcers patient no significant ischemic changes near her revascularizations procedures as per suggested by the general surgery here discussed with the vascular surgeon at [place] Will waiting for the hospitalist to call back
--- NOTE | 2019-12-16 10:12 | PDOC TRANSFER SUMMARY ---
General Admission Date/PCP: 12/12/19 20:15 NICOLASA GREEN MD Transfer Date: 12/16/19 Accepting Facility: [facility] Diagnosis (1) Atrial fibrillation with rapid ventricular response Is this a current diagnosis for this admission?: Yes (2) DVT of axillary vein, acute right Is this a current diagnosis for this admission?: Yes (3) Deep vein thrombosis of right upper extremity Is this a current diagnosis for this admission?: Yes (4) T2DM (type 2 diabetes mellitus) Is this a current diagnosis for this admission?: Yes (5) CVA (cerebral vascular accident) Is this a current diagnosis for this admission?: Yes (6) Hypothyroidism Is this a current diagnosis for this admission?: Yes (7) Peripheral vascular disease Is this a current diagnosis for this admission?: Yes (8) Tobacco abuse Is this a current diagnosis for this admission?: Yes (9) Dyslipidemia Is this a current diagnosis for this admission?: Yes (10) Wound of right upper extremity Is this a current diagnosis for this admission?: Yes - Transfer Medications Home Medications: Aspirin [Aspirin 325 mg Tablet] 325 mg PO DAILY 12/12/19 Atorvastatin Calcium [Lipitor 40 mg Tablet] 40 mg PO QHS 12/12/19 Duloxetine HCl [Cymbalta] 60 mg PO DAILY 12/12/19 Fluticasone Propionate [Flonase Nasal [place] 50 Mcg/[place] 16 gm] 1 spray NASL DAILY 12/12/19 Ibuprofen [Motrin 800 mg Tablet] 800 mg PO Q12HP PRN 12/12/19 Levothyroxine Sodium 88 mcg PO Q6AM 12/12/19 Lisinopril [Zestril] 5 mg PO DAILY 12/12/19 Metformin HCl [Glucophage 500 mg Tablet] 1,000 mg PO QPM 12/12/19 Metformin HCl [Glucophage 500 mg Tablet] 500 mg PO QAM 12/12/19 Oxycodone HCl/Acetaminophen [Percocet 5-325 mg Tablet] 1 tab PO Q6HP PRN 12/12/19 Transfer Medications: Current Medications Apixaban (Eliquis 5 Mg Tablet) 10 mg PO BID ARJUN Stop: 01/13/20 13:14 Last Admin: 12/15/19 17:56 Dose: 10 mg Documented by: Atorvastatin Calcium (Lipitor 40 Mg Tablet) 40 mg PO QHS ARJUN Stop: 01/11/20 21:59 Last Admin: 12/15/19 22:04 Dose: 40 mg Documented by: Dextrose (Dextrose Inj 50% Syringe (25 Gm/50 Ml)) 12.5 gm IV PRN PRN; Protocol PRN Reason: FOR BG 50-69 IN ALERT PATIENT Stop: 01/11/20 21:06 Dextrose (Dextrose Inj 50% Syringe (25 Gm/50 Ml)) 25 gm IV PRN PRN; Protocol PRN Reason: PER PROTOCOL Stop: 01/11/20 21:06 Diltiazem HCl (Cardizem Cd 240 Mg Capsule.Cr) 240 mg PO DAILY ON LICENSE OF [facility] Stop: 01/13/20 13:14 Last Admin: 12/15/19 09:48 Dose: 240 mg Documented by: Duloxetine HCl (Cymbalta 30 Mg Capsule.Dr) 60 mg PO DAILY ON LICENSE OF [facility] Stop: 01/12/20 09:59 Last Admin: 12/15/19 09:49 Dose: 60 mg Documented by: Glucagon (Glucagen Inj 1 Mg Vial) 1 mg IM PRN PRN; Protocol PRN Reason: Evaluate for BG < 70 Stop: 01/11/20 21:06 Glucose (Glutose 40% Gel 15 Gm Tube) 15 gm PO PRN PRN; Protocol PRN Reason: FOR BG 50-69 IN ALERT PATIENT Stop: 01/11/20 21:06 Glucose (Glutose 40% Gel 15 Gm Tube) 30 gm PO PRN PRN; Protocol PRN Reason: FOR BG < 50 IN ALERT PATIENT Stop: 01/11/20 21:06 Heparin Sodium (Porcine) (Heparin Inj 1,000 Unit/Ml 10 Ml Vial) 0 - 15,000 unit IV .BOLUS PER PROTOCOL PRN; Protocol PRN Reason: RESPOND TO aPTT VALUE Stop: 01/11/20 22:29 Diltiazem HCl (Cardizem Rtu Inj 125 Mg-D5w 125 Ml Premix) 125 mg in 125 mls @ 0 mls/hr IV CONTINUOUS PRN; Protocol PRN Reason: THIS MED IS NOT "PRN" Stop: 01/14/20 03:14 Last Titration: 12/16/19 04:21 Dose: 15 mls/hr, 15 mls/hr Documented by: Cefepime HCl (Maxipime Rtu 1 Gm/D5w 50 Ml Premix Bag) 1 gm in 50 mls @ 100 mls/hr IV Q12 ARJUN Stop: 12/22/19 09:59 Last Infusion: 12/15/19 22:35 Dose: Infused Documented by: Insulin Human Lispro (Humalog Insulin 100 Unit/1 Ml 3 Ml Vial) 0 - 12 unit SUBCUT ACHS ON LICENSE OF [facility]; Protocol Stop: 01/11/20 21:59 Last Admin: 12/16/19 08:41 Dose: 2 unit Documented by: Levothyroxine Sodium (Synthroid 0.088 Mg Tablet) 0.088 mg PO Q6AM ON LICENSE OF [facility] Stop: 01/12/20 05:59 Last Admin: 12/16/19 05:08 Dose: 0.088 mg Documented by: Ondansetron HCl (Zofran Inj/Pf 4 Mg/2 Ml Sdv) 4 mg IV Q6HP PRN PRN Reason: FOR NAUSEA/VOMITING Stop: 01/15/20 05:57 Oxycodone/Acetaminophen (Percocet 5-325 Mg Tablet) 1 tab PO Q6HP PRN PRN Reason: FOR PAIN Stop: 12/19/19 21:05 - Allergies Allergies/Adverse Reactions: pseudoephedrine [Pseudoephedrine] Allergy (Verified 12/12/19 16:50) IVP DYE Allergy (Uncoded 06/22/18 09:36) Hospital Course Hospital Course: This is a 64-year-old female present in the office with a right upper extremity swelling and the tachycardia patient is referred to the emergency departments found the patient have extensive DVT in the right upper extremities and patient is in A. fib with rapid ventricular response Patient is admitting in the hospital started on a heparin's and switch to the Eliquis and also put on a Cardizem drips Patient has a significant history of the peripheral vascular disease on top of that smoker noncompliance type 2 diabetes patient used to see a Dr. Rosalie Armstrong seen 6-month back and currently see a wound care clinicFor ongoing foot ulcers Patient seen by general surgery and suggest the patient having some right leg ischemic changes require a vascular evaluations discussed with the vascular surgeon in [place] and accept the patient's for transfer Patient also seen by the local special warfare operator Dr. Meeks for the A. fib and patient also see Dr. Rico at the [facility] cardi[facility] Patient's also seen by tongue and groove machine feeder here suggest the continues the anticoagulations patients have any way high chads score require lifelong anticoagulations patient's up-to-date with colonoscopy and a mammogram done in the past but again very noncompliance patients Physical Exam Vital Signs: Temp Pulse Resp BP Pulse Ox 98.0 F 76 18 136/80 H 88 L 12/16/19 07:40 12/16/19 07:40 12/16/19 07:40 12/16/19 07:40 12/16/19 07:40 Intake & Output 12/15/19 12/16/19 12/17/19 06:59 06:59 06:59 Intake Total 1230 1605 Output Total 300 600 Balance 930 1005 Weight 102.7 kg 102.7 kg General appearance: PRESENT: no acute distress, well-developed, well-nourished Head exam: PRESENT: atraumatic, normocephalic Eye exam: PRESENT: conjunctiva pink, EOMI, PERRLA. ABSENT: scleral icterus Ear exam: PRESENT: normal external ear exam Mouth exam: PRESENT: moist, tongue midline Neck exam: ABSENT: carotid bruit, JVD, lymphadenopathy, thyromegaly Respiratory exam: PRESENT: clear to auscultation gunjan. ABSENT: rales, rhonchi, wheezes Cardiovascular exam: PRESENT: RRR. ABSENT: diastolic murmur, rubs, systolic murmur Vascular exam: PRESENT: normal capillary refill GI/Abdominal exam: PRESENT: normal bowel sounds, soft. ABSENT: distended, guard ing, mass, organolmegaly, rebound, tenderness Rectal exam: PRESENT: deferred Extremities exam: PRESENT: full ROM. ABSENT: calf tenderness, clubbing, pedal edema Neurological exam: PRESENT: alert, awake, oriented to person, oriented to place, oriented to time, oriented to situation, CN II-XII grossly intact. ABSENT: motor sensory deficit Psychiatric exam: PRESENT: appropriate affect, normal mood. ABSENT: homicidal ideation, suicidal ideation Skin exam: PRESENT: dry, intact, warm. ABSENT: cyanosis, rash Results Laboratory Results: 12/15/19 04:39 12/16/19 05:01 12/16/19 05:01 Sodium 138.0 Potassium 3.9 Chloride 101 Carbon Dioxide 30 Anion Gap 7 BUN 11 Creatinine 0.62 Est GFR ( Amer) > 60 Glucose 166 H Calcium 9.0 12/13/19 05:30 Foot - Diabetic Ulcer Gram Stain - Final 12/13/19 05:30 Foot - Diabetic Ulcer Wound Culture - Final Alcaligenes Species Serratia Marcescens Citrobacter Freundii 12/12/19 12/12/19 12/12/19 17:15 17:15 22:17 Creatine Kinase 36 28 L CK-MB (CK-2) 1.97 Troponin I 0.146 12/12/19 12/13/19 12/13/19 22:17 05:01 05:01 Creatine Kinase 26 L CK-MB (CK-2) 1.36 1.28 Troponin I 0.219 0.270 12/13/19 12/13/19 11:50 11:50 Creatine Kinase 27 L CK-MB (CK-2) 1.18 Troponin I 0.189 Impressions: Chest X-Ray 12/12/19 17:20 IMPRESSION: Right lower lobe consolidation worrisome for pneumonia. Marked cardiomegaly, new compared to [address] 12/13/19 14:54 IMPRESSION: 1. Small right pleural effusion with compressive atelectasis at the right lung base. 2. Subcutaneous edema involving the right breast and lateral chest wall. 3. Enlarged right axillary lymph nodes may be reactive secondary to the edema. Plan Time Spent: Greater than 30 Minutes - Transfer the patient's current instrument the bed available
[2019-12-16] MEDS: DILTIAZEM HCL 240 MG CAPSULE.CR PO SCH (10:22)
[2019-12-16] MEDS: CEFEPIME 1 GM/D5W RTU 1 GM/50 ML RTUPB IV SCH (10:22)
[2019-12-16] MEDS: DULOXETINE HCL 30 MG CAPSULE.DR PO SCH (10:23)
[2019-12-16] MEDS: APIXABAN 5 MG TABLET PO SCH (10:23)
[2019-12-16 12:41] VITALS: BP 116/69
--- NOTE | 2019-12-16 16:48 | XCELERA REPORT ---
[address] [address] Transthoracic Echocardiogram Report Name: JOSH TOLBERT Age: 64 yrs Gender: Female : 1955 Patient Status: Inpatient Patient Location: [address] [place], [place] [address] Study Date: 12/15/2019 12:41 PM History: Atrial fibrillation Procedure: A limited two-dimensional transthoracic echocardiogram was performed (2D). The study was technically difficult with many images being suboptimal in quality. Reason For Study: NEW ONSET A-FIB Previous Evaluation: No previous studies were available. History: Diabetes. Dyslipidemia. HTN. Ordering Physician: NICOLASA GREEN Performed By: Minal Baig Interpretation Summary The study was technically difficult with many images being suboptimal in quality. Left ventricular systolic function is mildly reduced. The Ejection Fraction estimate is 40-45% The right ventricle is normal in size and function. There is a mild amount of mitral regurgitation There is no aortic valve stenosis There is a mild amount of tricuspid regurgitation There is mild pulmonary hypertension by echo There is no pericardial effusion. MMode/2D Measurements & Calculations RVDd: 2.1 cm LVIDd: 5.8 cm FS: 27.9 % Ao root diam: 2.8 cm IVSd: 1.1 cm LVIDs: 4.2 cm EDV(Teich): 164.0 ml LVPWd: 1.0 cm ESV(Teich): 76.5 ml Ao root area: 6.2 cm2 EF(Teich): 53.4 % Doppler Measurements & Calculations MV E max jonathan: MV dec slope: Ao V2 max: LV V1 max P.0 cm/sec 123.7 cm/sec 4.8 mmHg 830.2 cm/sec2 Ao max PG: LV V1 max: MV dec time: 0.19 sec6.1 mmHg 109.5 cm/sec PA V2 max: TR max jonathan: 102.1 cm/sec 273.9 cm/sec PA max P.2 mmHg TR max P.8 mmHg Left Ventricle The left ventricle is mildly to moderately dilated. There is moderate concentric left ventricular hypertrophy. Left ventricular systolic function is mildly reduced. The Ejection Fraction estimate is 40-45%. LV diastolic function not assessed. There is apical wall severe hypokinesis. There is distal septal wall severe hypokinesis. There is anteroseptal wall severe hypokinesis. Right Ventricle The right ventricle is normal in size and function. Atria The right atrium is mildly dilated. The left atrium is mildly dilated. The interatrial septum is intact with no evidence for an atrial septal defect. There is no Doppler evidence for an interatrial shunt. Mitral Valve The mitral valve leaflets are sclerotic, but show no functional abnormalities. The mitral valve is grossly normal. There is a mild amount of mitral regurgitation. Aortic Valve The aortic valve is normal in structure and function. The aortic valve opens well. The aortic valve is trileaflet. There is no aortic valve stenosis. No aortic regurgitation is present. Tricuspid Valve The tricuspid valve is not well visualized, but is grossly normal. There is no tricuspid stenosis. There is a mild amount of tricuspid regurgitation. Right ventricular systolic pressure is estimated to be elevated at 40-50mmHg. There is mild pulmonary hypertension by echo. Pulmonic Valve The pulmonic valve is not well visualized. There is a mild amount of pulmonic regurgitation. Great Vessels The aortic root is normal size. The inferior vena cava appeared normal and decreased < 50% with respiration (RAP 10-15 mmHg). Effusions There is no pericardial effusion. : NICOLASA GREEN Anil
== END 2019-12-16 13:51 | disposition short-term general hospital (02) | DRG 301 ==
LOC: ER 16:21 → EH 20:15 → 3W 22:51
PROVIDERS: ADMIT Internal Medicine Geriatric Medicine; ATTEND Family Medicine
DX: I82.621 Acute embolism and thrombosis of deep veins of right upper extremity (principal); L97.529 Non-pressure chronic ulcer of other part of left foot with unspecified severity; L97.519 Non-pressure chronic ulcer of other part of right foot with unspecified severity; E11.51 Type 2 diabetes mellitus with diabetic peripheral angiopathy without gangrene; E11.42 Type 2 diabetes mellitus with diabetic polyneuropathy; E11.621 Type 2 diabetes mellitus with foot ulcer; I48.0 Paroxysmal atrial fibrillation; E03.9 Hypothyroidism, unspecified; E78.5 Hyperlipidemia, unspecified; F90.9 Attention-deficit hyperactivity disorder, unspecified type; F32.9 Major depressive disorder, single episode, unspecified; S41.151A Open bite of right upper arm, initial encounter; W54.0XXA Bitten by dog, initial encounter; Z86.73 Personal history of transient ischemic attack (TIA), and cerebral infarction without residual deficits; F17.210 Nicotine dependence, cigarettes, uncomplicated; I10 Essential (primary) hypertension; E66.01 Morbid (severe) obesity due to excess calories; Z79.84 Long term (current) use of oral hypoglycemic drugs; Z79.82 Long term (current) use of aspirin; Z79.01 Long term (current) use of anticoagulants; Z88.8 Allergy status to other drugs, medicaments and biological substances; Z91.041 Radiographic dye allergy status; Z91.19 Patient's noncompliance with other medical treatment and regimen; Z68.35 Body mass index [BMI] 35.0-35.9, adult
CPT/HCPCS: 36415; 71045; 71250; 71260; 80048; 80053; 80061; 80307; 81001; 82140; 82150; 82550; 82553; 82962; 83036; 83690; 83735; 84100; 84439; 84443; 84484; 85025; 85610; 85730; 87040; 87070; 87075; 87077; 87086; 87186; 87205; 93005; 93010; 93306; 93971; 96374; 96375; 99291; J0692; J1644; J1815; J2405; J3490

== ENCOUNTER 2020-01-07 21:14 | Inpatient (IN) | payer MEDICARE, MEDICAID ==
[2020-01-07] MEDS ORDERED: RINGERS SOLUTION,LACTATED 3,000 ML IV ONE (21:30)
[2020-01-07] MEDS ORDERED: PIPERACILLIN/TAZOBACTAM 4.5 GM VIAL IV ONE (21:30)
[2020-01-07] MEDS ORDERED: VANCOMYCIN HCL INJ 1000 MG VIAL IV ONE (21:30)
--- NOTE | 2020-01-07 21:49 | ER Document Report ---
ED General - General Stated Complaint: WEAKNESS Time Seen by Provider: 01/07/20 21:30 Primary Care Provider: NICOLASA GREEN MD [Primary Care Provider] - Follow up as needed TRAVEL OUTSIDE OF THE [place] IN LAST 30 DAYS: No - HPI Notes: 64-year-old female transported here via EMS with a chief complaint of generalized weakness resulting in a fall at home with inability to get up without assistance. She has a worsening chronic infection of her right foot associated with drainage and foul odor. Also has foul odor urine. Review of prior records shows this lady was discharged from the hospital here a month ago with a chronic nonhealing wound of her left foot. She is a type II diabetic. She was referred to vascular surgery and also to wound care clinic. The patient had recently been treated for an upper extremity deep venous thrombosis and is on Eliquis although there are some notations in the chart indicate this lady is notoriously noncompliant. Patient also has a history of chronic atrial fibrillation. She was treated with IV diltiazem while in the hospital. Patient reports allergy to pseudoephedrine and IVP dye. States that she is taking an oral agent for diabetes but has not been on these medications in the last few days. Patient's responses are slow and she is not a good historian. - Related Data Allergies/Adverse Reactions: pseudoephedrine [Pseudoephedrine] Allergy (Verified 12/12/19 16:50) IVP DYE Allergy (Uncoded 06/22/18 09:36) Past Medical History - General Information source: Patient, Emergency Med Personnel, [facility], [facility] Records - Social History Smoking Status: Current Every Day Smoker Frequency of alcohol use: None Lives with: Family Family History: DM - Past Medical History Cardiac Medical History: Reports: Hx Atrial Fibrillation, Hx Hypercholesterolemia, Hx Hypertension Neurological Medical History: Reports: Hx Cerebrovascular Accident - 2 years ago Endocrine Medical History: Reports: Hx Diabetes Mellitus Type 2, Hx Hypothyroidism Renal/ Medical History: Denies: Hx Peritoneal Dialysis Psychiatric Medical History: Reports: Hx Anxiety, Hx Attention Deficit Hyperactivity Disorder, Hx Depression Past Surgical History: Reports: Hx Carotid Endarterectomy - Left - Immunizations Hx Diphtheria, Pertussis, Tetanus Vaccination: Yes Review of Systems - Review of Systems Notes: Constitutional: Subjective fever. HENT: Negative for sore throat. Eyes: Negative for visual changes. Cardiovascular: Negative for chest pain. Respiratory: Negative for shortness of breath. Gastrointestinal: Negative for abdominal pain, vomiting or diarrhea. Genitourinary: Negative for dysuria. Musculoskeletal: Negative for back pain. Skin: Negative for rash. Neurological: Negative for headaches, focal weakness or numbness. 10 point ROS negative except as marked above and in HPI. Physical Exam - Vital signs Vitals: Pulse 152 H 01/07/20 21:35 - Notes Notes: GENERAL: Chronically ill-appearing female of approximately stated age who is cool to touch and has somewhat slow responses to questioning. SKIN: Cool peripherally and pale. Good turgor. HEAD: Normocephalic atraumatic. EYES: PERRLA. EOMI. Conjunctivae and sclerae clear. EARS: CANALS AND TMS CLEAR. NOSE: CLEAR. MOUTH: Moist mucosa. Good dentition. No stridor or edema. No drooling. NECK: Supple. No masses or thyromegaly. No adenopathy. Carotids 2+ without bruits. No JVD. BACK: Symmetrical without tenderness. Breasts: Prominent bilateral intertrigo. CHEST: Respirations unlabored. Breath sounds clear and symmetrical. HEART: Tachycardic irregularly irregular rhythm. No murmur gallop or rub. ABDOMEN: Obese. Soft nontender without masses, organomegaly or rebound. Bowel sounds normally active. No bruits. GENITALIA: Deferred. EXTREMITIES: Patient has a 3.5 cm ulceration of the volar aspect of the right forefoot beneath the hallux with small amount of dark foul-smelling drainage. There is some surrounding erythema and cellulitis. 2+ edema of upper and lower extremities. No calf tenderness. Cap refill greater than 2 seconds. Dorsalis pedis and posterior tibial pulses 1 + and symmetrical. NEUROLOGICAL: GCS 15. Responses are slow. Fluent speech. Cranial nerves II through XII intact. Sensorimotor and cerebellar normal. Normal tone. PSYCHIATRIC: Appropriate affect. Course - Re-evaluation Re-evalutation: 01/07/20 22:34 Patient appears to be septic from a diabetic foot infection. Lactate in the field was 11.4. All labs here are pending at this time. She had no peripheral access and I placed a subclavian central line on the right side for her. We have initiated sepsis protocol with administration of 30 cc/kg of lactated Ringer's IV and we will also start Levophed. Empiric therapy with IV Zosyn and vancomycin. Case was discussed with her attending physician Dr. Green and we agree that she will go to the critical care unit. She has been accepted for admission to ICU by Dr. Atif Owens. - Vital Signs Vital signs: Temp Pulse Resp BP Pulse Ox 152 H 01/07/20 21:35 Procedures - Central Line Right Subclavian Time completed: 22:15 Consent obtained: Yes Central line pre-insertion: Sterile PPE donned, Chloraprep applied, Sterile drapes applied Central line size (Fr.): 20 Central line lumen type: Triple Anesthetic type: 1% Lidocaine mL's of anesthesia: 5 Ultrasound guided: No CM at insertion site: 15 Line secured with sutures: Yes Central line post-insertion: Blood return from lumens, Biopatch applied, Sutured, Sterile dressing applied, Position confirmed w/ CXR Number of attempts: 1 Complications: No Critical Care Note - Critical Care Note Total time excluding time spent on procedures (mins): 65 Discharge - Discharge Clinical Impression: Septic shock, Diabetic infection of right foot, Atrial fibrillation Condition: Critical Disposition: ADMITTED INPATIENT Admitting Provider: Graciela (Mold Release Worker) Unit Admitted: ICU Referrals: NICOLASA GREEN MD [Primary Care Provider] - Follow up as needed
--- NOTE | 2020-01-07 22:24 | EKG REPORT ---
SEVERITY:- ABNORMAL ECG - ATRIAL FIBRILLATION WITH RAPID V-RATE EXTENSIVE ANTERIOR INFARCT AGE INDETERMINATE : Confirmed by: Joseph Gill 07-Jan-2020 22:24:30
--- NOTE | 2020-01-07 23:02 | RADIOLOGY REPORT (SQ) ---
EXAM DESCRIPTION: XR CHEST 1 VIEW COMPLETED DATE/TME: 01/07/2020 21:31 CLINICAL HISTORY: 64 years, Female, sepsis COMPARISON: 12/12/2019 EXAM DESCRIPTION: CLINICAL HISTORY: sepsis COMPARISON: None. FINDINGS: Single view of the chest is submitted. Cardiac silhouette is enlarged. Central catheter tip is at the distal SVC. No pneumothorax is seen. There is atelectasis with a small region of consolidation at the medial right lung base. No other focal consolidation is seen. IMPRESSION: Cardiomegaly. Right lung base consolidation. Central line position as above..
[2020-01-07 23:10] LABS: VENOUS BLOOD HCO3 18.7 mmol/L (20-32); VENOUS BLOOD PCO2 38.7 mmHg (35-63); VENOUS BLOOD PH 7.3 (7.30-7.42)
[2020-01-07 23:20] LABS: INTERNATIONAL RATION (INR) 3.68; PROTHROMBIN TIME 37.4 SEC (11.4-15.4)
[2020-01-07 23:24] LABS: ALBUMIN 3.1 g/dL (3.5-5.0); ALKALINE PHOSPHATASE 160 U/L (38-126); ASPARTATE AMINO TRANSFERASE 664 U/L (14-36); BILIRUBIN,DIRECT 2.3 mg/dL (0.0-0.4); BILIRUBIN,TOTAL 3.9 mg/dL (0.2-1.3); BLOOD UREA NITROGEN 45 mg/dL (7-20); GLUCOSE 189 mg/dL (75-110); POTASSIUM 5.2 mmol/L (3.6-5.0); TOTAL PROTEIN 5.9 g/dL (6.3-8.2)
[2020-01-07 23:29] LABS: CARBON DIOXIDE 18 mmol/L (22-30); CHLORIDE 93 mmol/L (98-107)
--- NOTE | 2020-01-07 23:29 | RADIOLOGY REPORT (SQ) ---
EXAM DESCRIPTION: Two views of the right foot CLINICAL HISTORY: 64 years Female, infection COMPARISON: Radiographs of the right foot March 11, 2019 FINDINGS: Collapse of the first MTP joint is identified and there appears to be osseous fusion across the joint. On the lateral view a soft tissue ulcer is present on the plantar surface. This appears to correlate with the MTP joint. Air is seen in the soft tissues but does not extend to the bone surface. The appearance of the osseous structures are not significantly changed. No acute fracture is noted. Overall bone mineralization is diminished. IMPRESSION: Collapse and fusion of the first MTP joint. There is an associated plantar soft tissue ulcer with air in the soft tissues. No obvious evidence of osteomyelitis. If there is a high clinical concern for osteochondral then MRI is recommended for further assessment.
[2020-01-07 23:33] LABS: ANION GAP 20 (5-19)
[2020-01-07 23:59] LABS: APPEARANCE,URINE SLIGHTLY-CLOUDY; BILIRUBIN,URINE NEGATIVE (NEGATIVE); GLUCOSE, URINE NEGATIVE (NEGATIVE); KETONES,URINE NEGATIVE (NEGATIVE); PROTEIN,URINE 30 mg/dL (NEGATIVE); URINE SPECIFIC GRAVITY 1.019
[2020-01-08 00:02] LABS: COLOR,URINE YELLOW
[2020-01-08] MEDS ORDERED: DIGOXIN INJ 0.5 MG/2 ML AMPULE IV ONE ×3 (00:05→07:00)
[2020-01-08] MEDS ORDERED: DEXTROSE 40% GEL 15 GM TUBE PO PRN ×2 (00:09)
[2020-01-08] MEDS ORDERED: GLUCAGON,HUMAN RECOMB 1 MG INJ SUBCUT PRN (00:09)
[2020-01-08] MEDS ORDERED: DEXTROSE 50%-WATER 25 GM/50 ML DISP.SYRIN IV PRN ×2 (00:09)
[2020-01-08 00:21] LABS: HEMATOCRIT 36.8 % (36.0-47.0); HEMOGLOBIN 11.3 g/dL (12.0-15.5); MEAN CORPUSCULAR HEMOGLOBIN 25.2 pg (27.0-33.4); MEAN CORPUSCULAR HGB CONC 30.7 g/dL (32.0-36.0); MEAN CORPUSCULAR VOLUME 82 fl (80-97); PLATELET COUNT 215 10^3/uL (150-450); RED BLOOD COUNT 4.49 10^6/uL (3.72-5.28); RED CELL DISTRIBUTION WIDTH 20.4 % (11.5-14.0); WHITE BLOOD COUNT 23.1 10^3/uL (4.0-10.5)
[2020-01-08 00:49] LABS: PHOSPHORUS 4.4 mg/dL (2.5-4.5)
[2020-01-08 00:52] LABS: ABSOLUTE LYMPHOCYTES# (MANUAL) 0.7 10^3/uL (0.5-4.7); ABSOLUTE MONOCYTES # (MANUAL) 1.2 10^3/uL (0.1-1.4); BAND NEUTROPHILS % (MANUAL) 2 % (3-5); BASOPHILS % (MANUAL) 0 % (0-2); EOSINOPHILS % (MANUAL) 0 % (0-6); LYMPHOCYTES % (MANUAL) 3 % (13-45); MONOCYTES % (MANUAL) 5 % (3-13); SEGMENTED NEUTROPHILS % (MAN) 90 % (42-78); TOTAL CELLS COUNTED 100
[2020-01-08 00:54] LABS: ANISOCYTOSIS 2+; BURR CELLS 1+; HYPOCHROMASIA SLIGHT; OVALOCYTES SLIGHT; PLATELET COMMENT ADEQUATE; POIKILOCYTOSIS SLIGHT; POLYCHROMASIA SLIGHT; SCHISTOCYTES SLIGHT; TOXIC GRANULATION 1+
[2020-01-08 01:00] LABS: ARTERIAL BLOOD BASE EXCESS -6.1 mmol/L; ARTERIAL BLOOD H2CO3 1.16 mmol/L (1.05-1.35); ARTERIAL BLOOD HCO3 19.5 mmol/L (20-24); ARTERIAL BLOOD O2 SATURATION 62.7 % (94-98); ARTERIAL BLOOD PCO2 38.7 mmHg (35-45); ARTERIAL BLOOD PH 7.32 (7.35-7.45); ARTERIAL BLOOD TOTAL CO2 20.7 mmol/L (21-25)
[2020-01-08] MEDS: INSULIN REG, HUMAN 100 UNIT/ML 3 ML VIAL (PYX) SUBCUT SCH ×4 (01:02→18:32)
[2020-01-08 01:22] LABS: ARTERIAL BLOOD FIO2 4L
[2020-01-08] MEDS ORDERED: METOPROLOL TARTRATE PF/INJ 5 MG/5 ML SDV IV ONE ×3 (01:53→02:55)
[2020-01-08] MEDS ORDERED: PHARMACY COMMUNICATION ORDER MC NR (03:30)
[2020-01-08] MEDS ORDERED: VANCOMYCIN HCL 0 MG in DEXTROSE 5%-WATER 250 ML IV NR (08:30)
[2020-01-08] MEDS ORDERED: LEVOTHYROXINE SODIUM 0.088 MG TABLET PO SCH (09:00)
[2020-01-08 09:05] LABS: HEMATOCRIT 33.4 % (36.0-47.0); HEMOGLOBIN 10.3 g/dL (12.0-15.5); MEAN CORPUSCULAR HEMOGLOBIN 25.1 pg (27.0-33.4); MEAN CORPUSCULAR HGB CONC 30.9 g/dL (32.0-36.0); MEAN CORPUSCULAR VOLUME 81 fl (80-97); PLATELET COUNT 173 10^3/uL (150-450); RED BLOOD COUNT 4.11 10^6/uL (3.72-5.28); RED CELL DISTRIBUTION WIDTH 19.4 % (11.5-14.0); WHITE BLOOD COUNT 24.3 10^3/uL (4.0-10.5)
--- NOTE | 2020-01-08 09:08 | EKG REPORT ---
SEVERITY:- ABNORMAL ECG - ATRIAL FIBRILLATION VENTRICULAR PREMATURE COMPLEX LEFT AXIS DEVIATION ANTERIOR INFARCT, AGE INDETERMINATE : Confirmed by: Joseph Gill 08-Jan-2020 09:07:49
[2020-01-08 09:29] LABS: ALBUMIN 2.3 g/dL (3.5-5.0); ALKALINE PHOSPHATASE 127 U/L (38-126); ANION GAP 8 (5-19); ASPARTATE AMINO TRANSFERASE 463 U/L (14-36); BILIRUBIN,DIRECT 2.5 mg/dL (0.0-0.4); BILIRUBIN,TOTAL 3.7 mg/dL (0.2-1.3); BLOOD UREA NITROGEN 47 mg/dL (7-20); CALCIUM 8.4 mg/dL (8.4-10.2); CARBON DIOXIDE 27 mmol/L (22-30); CHLORIDE 97 mmol/L (98-107); CREATINE KINASE 202 U/L (30-135); GLUCOSE 158 mg/dL (75-110); PHOSPHORUS 3.6 mg/dL (2.5-4.5); POTASSIUM 4.5 mmol/L (3.6-5.0)
[2020-01-08 09:39] LABS: ABSOLUTE LYMPHOCYTES# (MANUAL) 0.7 10^3/uL (0.5-4.7); ABSOLUTE MONOCYTES # (MANUAL) 0.5 10^3/uL (0.1-1.4); BAND NEUTROPHILS % (MANUAL) 2 % (3-5); BASOPHILS % (MANUAL) 0 % (0-2); EOSINOPHILS % (MANUAL) 0 % (0-6); LYMPHOCYTES % (MANUAL) 3 % (13-45); MONOCYTES % (MANUAL) 2 % (3-13); SEGMENTED NEUTROPHILS % (MAN) 93 % (42-78); TOTAL CELLS COUNTED 100
[2020-01-08 09:42] LABS: ANISOCYTOSIS 2+; OVALOCYTES SLIGHT; PLATELET COMMENT ADEQUATE; PLATELET GIANT PRESENT; PLATELET LARGE PRESENT; POIKILOCYTOSIS SLIGHT; POLYCHROMASIA SLIGHT; TOXIC GRANULATION SLIGHT
[2020-01-08] MEDS ORDERED: CEFEPIME 2 GM/D5W RTU 2 GM/50 ML RTUPB IV SCH (10:00)
[2020-01-08] MEDS ORDERED: CEFEPIME HCL 2 GM in DEXTROSE 5%-WATER 50 ML IV SCH (10:00)
--- NOTE | 2020-01-08 11:14 | CRITICAL CARE ADMISSION REPORT ---
HPI Date:: 01/08/20 Time:: 23:30 Reason for ICU Reason:: Hypotension, Severe Sepsis, Heart Failure, A-fib RVR HPI: Deepa Diaz is a 64-year-old female with a past medical history significant for HTN, CHF, A-fib (for which she was reportedly taken off anticoagulation 3 yrs ago because she was in NSR-though back in AF last month), recently diagnosed right axillary DVT placed on Eliquis, DM II with Hgb A1c 7.7 last month), and chronic diabetic foot ulcers to the right great toe as well as plantar surface of her foot who presented to [facility] with a complaint of generalized weakness resulting in a fall at home, unable to get up without assistance. Mrs Diaz was found to have hypotension and atrial fibrillation with RVR, HR 170s. Mrs Diaz was receiving sepsis bolus of 30 ml/kg when I evaluated her in ED, discovering she has significantly reduced LVEF on POCUS performed by myself, therefore the remainder of the fluid was held following the one liter she had already received. She denies CP, SOB, upper respiratory symptoms, GIB, changes in bowel habits, and urinary symptoms. However, does admit she thinks she has been told she has heart failure in the past. Mrs. Diaz was transferred to [facility] last month for interventional vascular vs vascular surgery consultation for which we will attempt to obtain medical records later jacquie velasco. Will admit patient to ICU for heart failure and A-fib RVR, though there is likely a severe sepsis component as well. History obtained from:: medical record, patient, ER physician - Diagnosis/Plan (1) HFrEF (heart failure with reduced ejection fraction) Qualifiers: Heart failure chronicity: acute Qualified Code(s): I50.21 - Acute systolic (congestive) heart failure Is this a current diagnosis for this admission?: Yes Plan: Withhold maintenance fluids and remaining sepsis bolus. Trend lactate. Start Digoxin for a-fib and HFrEF. Check VBG (which will be ordered as ABG to obtain venous sat). If <55%, will initiate Milrinone infusion. Obtain Echocardiogram. Consult Dr Meeks with Cardiology during day time as he was already following Mrs Diaz last month and can assist with pt's CHF. (2) Severe sepsis with acute organ dysfunction Is this a current diagnosis for this admission?: Yes Plan: Empiric antibiotics, f/u blood Cx's, UA negative for UTI. Consult Surgery for right foot ulcers. (3) TERESSA (acute kidney injury) Is this a current diagnosis for this admission?: Yes Plan: Repeat BMP to ensure BUN/Cr plateau. Hold off on further IV fluids at this time given HFrEF. (4) Ischemic ulcer diabetic foot Is this a current diagnosis for this admission?: Yes Plan: Consult Surgery. Obtain medical records from [facility] from last month's transfer. Trend lactate. (5) Lactic acid acidosis Is this a current diagnosis for this admission?: Yes Plan: Trend lactate. If lactate does not trend downward, will order CT of RLE to evaluate for necrotizing soft tissue infection as well as contrast to determine if flow adequate. It is highly possible that the lactic acidosis is from the patient's Metformin, which we will hold at this time. (6) Atrial fibrillation with rapid ventricular response Is this a current diagnosis for this admission?: Yes Plan: Digoxin monitoring for toxicity given TERESSA. Load with 0.25 mg followed by 0.125 mg daily starting 6 hours later. HR control to <120. Resume Eliquis when able if not contraindicated from invasive standpoint. (7) DVT of axillary vein, acute right Is this a current diagnosis for this admission?: Yes Plan: Resume Eliquis when plan determined after consulting with Cardiology and Surgery. Patient currently effectively anticoagulated. Has RLE circumferential distal third tibial/fibular tenderness for which we'll obtain BLE venous duplex to r/o DVT before considering mechanical prophylaxis. (8) Hypothyroidism Qualifiers: Hypothyroidism type: unspecified Qualified Code(s): E03.9 - Hypothyroidism, unspecified Is this a current diagnosis for this admission?: Yes Plan: Resume home synthroid dose. (9) Morbid obesity Is this a current diagnosis for this admission?: Yes Plan: [facility] [employer] for encouraging diet adherence, weight loss, and importance of exercise prior to discharge. (10) Peripheral vascular disease Is this a current diagnosis for this admission?: Yes Plan: Trend lactate. Monitor ischemic changes in feet and if worsen, will obtain RLE CT with IVC and runoff to evaluate flow. Will consult surgery and request medical records from [facility] to determine what was done last month with future recommendations. (11) T2DM (type 2 diabetes mellitus) Qualifiers: Diabetes mellitus prison insulin use: without prison use Diabetes mellitus complication status: with neurologic complications Diabetes mellitus complication detail: with polyneuropathy Qualified Code(s): E11.42 - Type 2 diabetes mellitus with diabetic polyneuropathy Is this a current diagnosis for this admission?: Yes Plan: Will initiate accuchecks with ISS coverage q6h. HgbAqc 7.7 on 12/13/2019 (12) Dyslipidemia Is this a current diagnosis for this admission?: Yes Plan: clarify medication list to include statin use (13) Tobacco abuse Is this a current diagnosis for this admission?: Yes Plan: Smoking cessation counseling prior to discharge. Not ideal to have nicotine patch on at this time given reduced perfusion to feet. (14) Hypotension Qualifiers: Hypotension type: unspecified hypotension type Qualified Code(s): I95.9 - Hypotension, unspecified Is this a current diagnosis for this admission?: Yes Plan: Resolved in ED after 1 liter of fluid. No vasopressors ever required. (15) Depression Qualifiers: Depression Type: unspecified Qualified Code(s): F32.9 - Major depressive disorder, single episode, unspecified Is this a current diagnosis for this admission?: Yes Plan: resume home Cymbalta. (16) HLD (hyperlipidemia) Qualifiers: Hyperlipidemia type: unspecified Qualified Code(s): E78.5 - Hyperlipidemia, unspecified Is this a current diagnosis for this admission?: Yes Plan: Hold Lipitor until prove liver function stable, likely an ischemic insult due to hypotension. Past Medical History Cardiac Medical History: Reports: Atrial Fibrillation, Congestive Heart Failure - states she may have been told she had heart failure remotely, DVT - Right axi llary vein in late November 2019, Hyperlipidema, Hypertension, Peripheral Vascular Disease Neurological Medical History: Reports: Other - CVA unknown if ischemic/hemorrhaghic-no residual deficits per patient Denies: Multiple Sclerosis, Seizures Endocrine Medical History: Reports: Diabetes Mellitus Type 2, Hypothyroidism Malignancy Medical History: Reports: None GI Medical History: Denies: Cirrhosis, Diverticulitis, Hepatitis Musculoskeltal Medical History: Reports: None Skin Medical History: Reports: None Psychiatric Medical History: Reports: Attention Deficit Hyperactivity Disorder, Depression Traumatic Medical History: Reports: None Hematology: Reports: None Past Surgical History Past Surgical History: Reports: Carotid Endarterectomy - Left Social/Family History - Social History Lives with: Family Smoking Status: Current Every Day Smoker Frequency of Alcohol Use: Rare Hx Recreational Drug Use: No Drugs: None Hx Prescription Drug Abuse: No - Medication/Allergies Home Medications: Apixaban [Eliquis 5 mg Tablet] 5 mg PO BID 01/08/20 Atorvastatin Calcium [Lipitor 40 mg Tablet] 40 mg PO QHS 01/08/20 Duloxetine HCl [Cymbalta] 60 mg PO DAILY 01/08/20 Fluticasone Propionate [Flonase Nasal [place] 50 Mcg/[place] 16 gm] 1 spray NASL DAILY 01/08/20 Ibuprofen [Motrin 800 mg Tablet] 800 mg PO BID 01/08/20 Levothyroxine Sodium [Synthroid 0.088 mg Tablet] 0.088 mg PO Q6AM 01/08/20 Lisinopril [Zestril] 2.5 mg PO DAILY 01/08/20 Metformin HCl [Glucophage 500 mg Tablet] 1,000 mg PO BID 01/08/20 Metoprolol Tartrate [Lopressor 25 mg Tablet] 25 mg PO Q12 01/08/20 Oxycodone HCl/Acetaminophen [Percocet 5-325 mg Tablet] 1 tab PO Q6HP PRN 01/08/20 Allergies/Adverse Reactions: Iodinated Contrast Media Allergy (Unknown, Verified 01/08/20 10:30) pseudoephedrine [Pseudoephedrine] Allergy (Verified 12/12/19 16:50) Review of Systems Constitutional: PRESENT: weakness. ABSENT: anorexia, chills, fever(s), night sweats Eyes: ABSENT: visual disturbances Ears: ABSENT: hearing changes Nose, Mouth, and Throat: ABSENT: mouth pain, sore throat Breasts: PRESENT: other - erythema to breast skin fold "present for a while" Cardiovascular: PRESENT: edema - BLE 2+ edema. ABSENT: chest pain, palpitations Respiratory: ABSENT: cough - yet repeatedly coughed in front of me-non- productive, appears similar to smoker's cough, dyspnea, hemoptysis, sputum Gastrointestinal: ABSENT: abdominal pain, constipation - last BM 2 days ago, dysphagia, heartburn, hematemesis, hematochezia, melena, nausea, vomiting Genitourinary: ABSENT: difficulty urinating, dysuria, hematuria Musculoskeletal: PRESENT: muscle weakness Integumentary: PRESENT: erythema - to breasts and legs, wounds - to right foot Neurological: PRESENT: weakness. ABSENT: confusion, frequent falls - though did fall this AM due to weakness Psychiatric: PRESENT: depression. ABSENT: hallucinations Endocrine: ABSENT: cold intolerance, flushing, heat intolerance, polydipsia, polyphagia, polyuria Hematologic/Lymphatic: PRESENT: easy bruising. ABSENT: lymphadenopathy Allergic/Immunologic: ABSENT: seasonal rhinorrhea Physical Exam Vital Signs: Temp Pulse Resp BP Pulse Ox 152 H 99 01/07/20 21:35 01/07/20 23:27 Intake & Output 01/06/20 01/07/20 01/08/20 06:59 06:59 06:59 Weight 102.6 kg Weight/Height Weight 102.6 kg Height 5 ft 7 in General appearance: PRESENT: no acute distress, cooperative, morbidly obese Head exam: PRESENT: atraumatic, normocephalic Eye exam: PRESENT: conjunctiva pink, EOMI, PERRLA. ABSENT: nystagmus, periorbital swelling, scleral icterus Ear exam: PRESENT: TM's normal bilaterally Mouth exam: PRESENT: moist, neck supple, tongue midline Throat exam: ABSENT: post pharyngeal erythema Neck exam: PRESENT: full ROM. ABSENT: JVD, lymphadenopathy, tenderness, tracheal deviation Respiratory exam: PRESENT: clear to auscultation gunjan, symmetrical, unlabored. ABSENT: accessory muscle use, tachypnea Cardiovascular exam: PRESENT: +S1, +S2, tachycardia - a-fib RVR on telemetry. ABSENT: gallop, rubs, systolic murmur Pulses: PRESENT: other - Unable to palpate bilateral radial/DP/PT artereries. Ultrasound demonstrates vasoconstriction and pulsatility of all 6 arteries, though the most concerning are the BLE's with ischemic toe/foot miscoloration. Vascular exam: PRESENT: other - capillary refill 4 seconds tested in BUE's GI/Abdominal exam: PRESENT: normal bowel sounds, soft. ABSENT: distended, guarding, Acevedo's sign, rebound, tenderness Rectal exam: PRESENT: deferred Gentrourinary exam: PRESENT: indwelling catheter - placed in ED. ABSENT: urethral discharge Extremities exam: PRESENT: calf tenderness - To RLE, though is actually circumferential; no presence of compartment syndrome. Passive R foot dorsiflexion does not induce ascending fascial pain., other - has diabetic neuropathy in feet Musculoskeletal exam: PRESENT: other - Limited ROM bilateral toes and ankles; otherwise normal. Sedentary at home Neurological exam: PRESENT: awake, oriented to person, oriented to place, oriented to time, oriented to situation, CN II-XII grossly intact Psychiatric exam: PRESENT: appropriate affect Skin exam: PRESENT: dry, other - inframammory crease intertrigo, foot ulcers to R plantar foot as well as R great toe-no odor detected. Ischemic color changes of bilateral toes as well as parts of both feet. Necrosis forming on R great toe. Color changes of distal medial tibia concerning for ischemia/local trauma versus NSTI. Extremities cold to touch, not clammy or diaphoretic.. ABSENT: jaundice Laboratory/Radiographs Laboratory Results: 01/07/20 22:15 01/07/20 22:24 01/07/20 01/07/20 01/07/20 22:15 22:24 22:24 WBC Cancelled RBC Cancelled Hgb Cancelled Hct Cancelled MCV Cancelled MCH Cancelled MCHC Cancelled RDW Cancelled Plt Count Cancelled Seg Neutrophils % Cancelled VBG pH VBG pCO2 VBG HCO3 VBG Base Excess Sodium 131.2 L Potassium 5.2 H Chloride 93 L Carbon Dioxide 18 L Anion Gap 20 H BUN 45 H Creatinine 1.23 Est GFR ( Amer) 53 L Glucose 189 H Lactic Acid 8.2 H Calcium 9.0 Total Bilirubin 3.9 H AST 664 H Alkaline Phosphatase 160 H Total Protein 5.9 L Albumin 3.1 L Urine Color Urine Appearance Urine pH Ur Specific [place] Urine Protein Urine Glucose (UA) Urine Ketones Urine Blood Urine RBC (Auto) 01/07/20 01/07/20 22:24 22:24 WBC RBC Hgb Hct MCV MCH MCHC RDW Plt Count Seg Neutrophils % VBG pH 7.30 VBG pCO2 38.7 VBG HCO3 18.7 L VBG Base Excess -7.0 Sodium Potassium Chloride Carbon Dioxide Anion Gap BUN Creatinine Est GFR ( Amer) Glucose Lactic Acid Calcium Total Bilirubin AST Alkaline Phosphatase Total Protein Albumin Urine Color YELLOW Urine Appearance SLIGHTLY-CLOUDY Urine pH 5.0 Ur Specific [place] 1.019 Urine Protein 30 H Urine Glucose (UA) NEGATIVE Urine Ketones NEGATIVE Urine Blood NEGATIVE Urine RBC (Auto) 1 01/07/20 22:24 Troponin I 0.067 Impressions: Chest X-Ray 01/07/20 21:31 IMPRESSION: Cardiomegaly. Right lung base consolidation. Central line position as above.. Foot X-Ray 01/07/20 22:32 IMPRESSION: Collapse and fusion of the first MTP joint. There is an associated plantar soft tissue ulcer with air in the soft tissues. No obvious evidence of osteomyelitis. If there is a high clinical concern for osteochondral then MRI is recommended for further assessment. All labs, radiographs, diagnostic studies and EKGs were personally reviewed: Yes Critical Time Critical Time (minutes): 95 -: The care of a critically ill patient is dynamic. This note represents a static moment in the admission process. Orders and treatments may be given simultaneously and urgently, and time is not claim service representative of the treatment process. This patient requires Critical Care secondary to life threatening organ or limb dysfunction. Without Critical Care services, the patient is at risk for increased mortality and morbidity.
--- NOTE | 2020-01-08 11:30 | PDOC CONSULTATION ---
Consultation Consult Date: 01/08/20 Provider Consulted: SHELLEY WRIGHT Consult reason:: Evaluate right foot History of Present Illness Admission Date/PCP: 01/07/20 22:55 NICOLASA GREEN MD History of Present Illness: JOSH TOLBERT is a 64 year old female with multiple medical problems including severe congestive heart failure, peripheral vascular disease, diabetes presenting with apparent sepsis and atrial fib with rapid ventricular rate. Patient has been noted with a right foot ulcer with a bad odor. Patient is confused and really unable to provide much of a history. Past Medical History Cardiac Medical History: Reports: Atrial Fibrillation, Congestive Heart Failure - states she may have been told she had heart failure remotely, DVT - Right axi llary vein in late November 2019, Hyperlipidema, Hypertension, Peripheral Vascular Disease Neurological Medical History: Reports: Other - CVA unknown if ischemic/hemorrhaghic-no residual deficits per patient Denies: Multiple Sclerosis, Seizures Endocrine Medical History: Reports: Diabetes Mellitus Type 2, Hypothyroidism Malignancy Medical History: Reports: None GI Medical History: Denies: Cirrhosis, Diverticulitis, Hepatitis Musculoskeltal Medical History: Reports: None Skin Medical History: Reports: None Psychiatric Medical History: Reports: Attention Deficit Hyperactivity Disorder, Depression Traumatic Medical History: Reports: None Hematology: Reports: None Past Surgical History Past Surgical History: Reports: Carotid Endarterectomy - Left Social History Lives with: Family Smoking Status: Current Every Day Smoker Electronic Cigarette use?: No Frequency of Alcohol Use: Rare Hx Recreational Drug Use: No Drugs: None Hx Prescription Drug Abuse: No Family History Family History: DM Parental Family History Reviewed: No Children Family History Reviewed: No Sibling(s) Family History Reviewed.: No Medication/Allergy Home Medications: Apixaban [Eliquis 5 mg Tablet] 5 mg PO BID 01/08/20 Atorvastatin Calcium [Lipitor 40 mg Tablet] 40 mg PO QHS 01/08/20 Duloxetine HCl [Cymbalta] 60 mg PO DAILY 01/08/20 Fluticasone Propionate [Flonase Nasal [place] 50 Mcg/[place] 16 gm] 1 spray NASL DAILY 01/08/20 Ibuprofen [Motrin 800 mg Tablet] 800 mg PO BID 01/08/20 Levothyroxine Sodium [Synthroid 0.088 mg Tablet] 0.088 mg PO Q6AM 01/08/20 Lisinopril [Zestril] 2.5 mg PO DAILY 01/08/20 Metformin HCl [Glucophage 500 mg Tablet] 1,000 mg PO BID 01/08/20 Metoprolol Tartrate [Lopressor 25 mg Tablet] 25 mg PO Q12 01/08/20 Oxycodone HCl/Acetaminophen [Percocet 5-325 mg Tablet] 1 tab PO Q6HP PRN 01/08/20 Allergies/Adverse Reactions: Iodinated Contrast Media Allergy (Unknown, Verified 01/08/20 10:30) pseudoephedrine [Pseudoephedrine] Allergy (Verified 12/12/19 16:50) Review of Systems ROS unobtainable: Due to mental status Physical Exam Vital Signs: Temp Pulse Resp BP Pulse Ox 98.1 F 127 H 18 123/109 H 100 01/08/20 08:00 01/08/20 10:00 01/08/20 10:00 01/08/20 10:00 01/08/20 10:00 Intake & Output 01/07/20 01/08/20 01/09/20 06:59 06:59 06:59 Intake Total 1513 Output Total 280 30 Balance 1233 -30 Weight 103.1 kg Respiratory exam: PRESENT: clear to auscultation gunjan Cardiovascular exam: PRESENT: tachycardia GI/Abdominal exam: PRESENT: other - Soft, nondistended, mild diffuse abdominal tenderness to palpation, perhaps more so in the right upper quadrant but difficult exam due to her mental status. No peritoneal signs. Extremities exam: PRESENT: other - Bilateral feet with bluish discoloration of the toes. Both of the feet are cool. No palpable pedal pulses with biphasic Doppler signal of the posterior tibial of the right foot. Bilateral femoral pulses are palpable. Right foot with a deep-seated ulcer at the great toe metatarsal head with scant amount of foul-smelling drainage. Unable to palpate bone but there is necrotic debris around the ulcer. Results Laboratory Results: 01/08/20 08:45 01/08/20 08:45 01/07/20 01/07/20 01/07/20 22:15 22:24 22:24 WBC Cancelled RBC Cancelled Hgb Cancelled Hct Cancelled MCV Cancelled MCH Cancelled MCHC Cancelled RDW Cancelled Plt Count Cancelled Seg Neutrophils % Cancelled Carbonic Acid HCO3/H2CO3 Ratio ABG pH ABG pCO2 ABG pO2 ABG HCO3 ABG O2 Saturation ABG Base Excess VBG pH VBG pCO2 VBG HCO3 VBG Base Excess FiO2 Sodium 131.2 L Potassium 5.2 H Chloride 93 L Carbon Dioxide 18 L Anion Gap 20 H BUN 45 H Creatinine 1.23 Est GFR ( Amer) 53 L Glucose 189 H Lactic Acid 8.2 H Calcium 9.0 Phosphorus Magnesium Total Bilirubin 3.9 H AST 664 H Alkaline Phosphatase 160 H Total Protein 5.9 L Albumin 3.1 L Urine Color Urine Appearance Urine pH Ur Specific Decker Urine Protein Urine Glucose (UA) Urine Ketones Urine Blood Urine RBC (Auto) 01/07/20 01/07/20 01/07/20 22:24 22:24 22:24 WBC RBC Hgb Hct MCV MCH MCHC RDW Plt Count Seg Neutrophils % Carbonic Acid HCO3/H2CO3 Ratio ABG pH ABG pCO2 ABG pO2 ABG HCO3 ABG O2 Saturation ABG Base Excess VBG pH 7.30 VBG pCO2 38.7 VBG HCO3 18.7 L VBG Base Excess -7.0 FiO2 Sodium Potassium Chloride Carbon Dioxide Anion Gap BUN Creatinine Est GFR ( Amer) Glucose Lactic Acid Calcium Phosphorus 4.4 Magnesium 1.9 Total Bilirubin AST Alkaline Phosphatase Total Protein Albumin Urine Color YELLOW Urine Appearance SLIGHTLY-CLOUDY Urine pH 5.0 Ur Specific Decker 1.019 Urine Protein 30 H Urine Glucose (UA) NEGATIVE Urine Ketones NEGATIVE Urine Blood NEGATIVE Urine RBC (Auto) 1 01/07/20 01/07/20 01/08/20 23:55 23:55 01:52 WBC 23.1 H RBC 4.49 Hgb 11.3 L Hct 36.8 MCV 82 MCH 25.2 L MCHC 30.7 L RDW 20.4 H Plt Count 215 Seg Neutrophils % Not Reportable Carbonic Acid 1.16 HCO3/H2CO3 Ratio 16:1 ABG pH 7.32 L ABG pCO2 38.7 ABG pO2 35.0 L* ABG HCO3 19.5 L ABG O2 Saturation 62.7 L ABG Base Excess -6.1 VBG pH VBG pCO2 VBG HCO3 VBG Base Excess FiO2 4L Sodium Potassium Chloride Carbon Dioxide Anion Gap BUN Creatinine Est GFR ( Amer) Glucose Lactic Acid 4.8 H Calcium Phosphorus Magnesium Total Bilirubin AST Alkaline Phosphatase Total Protein Albumin Urine Color Urine Appearance Urine pH Ur Specific Decker Urine Protein Urine Glucose (UA) Urine Ketones Urine Blood Urine RBC (Auto) 01/08/20 01/08/20 01/08/20 04:33 08:45 08:45 WBC 24.3 H RBC 4.11 Hgb 10.3 L Hct 33.4 L MCV 81 MCH 25.1 L MCHC 30.9 L RDW 19.4 H Plt Count 173 Seg Neutrophils % Not Reportable Carbonic Acid HCO3/H2CO3 Ratio ABG pH ABG pCO2 ABG pO2 ABG HCO3 ABG O2 Saturation ABG Base Excess VBG pH VBG pCO2 VBG HCO3 VBG Base Excess FiO2 Sodium 131.7 L Potassium 4.5 Chloride 97 L Carbon Dioxide 27 Anion Gap 8 BUN 47 H Creatinine 1.21 Est GFR ( Amer) 54 L Glucose 158 H Lactic Acid 3.0 H Calcium 8.4 Phosphorus 3.6 Magnesium 1.8 Total Bilirubin 3.7 H AST 463 H Alkaline Phosphatase 127 H Total Protein 5.0 L Albumin 2.3 L Urine Color Urine Appearance Urine pH Ur Specific Decker Urine Protein Urine Glucose (UA) Urine Ketones Urine Blood Urine RBC (Auto) 01/08/20 08:45 WBC RBC Hgb Hct MCV MCH MCHC RDW Plt Count Seg Neutrophils % Carbonic Acid HCO3/H2CO3 Ratio ABG pH ABG pCO2 ABG pO2 ABG HCO3 ABG O2 Saturation ABG Base Excess VBG pH VBG pCO2 VBG HCO3 VBG Base Excess FiO2 Sodium Potassium Chloride Carbon Dioxide Anion Gap BUN Creatinine Est GFR ( Amer) Glucose Lactic Acid 2.2 H Calcium Phosphorus Magnesium Total Bilirubin AST Alkaline Phosphatase Total Protein Albumin Urine Color Urine Appearance Urine pH Ur Specific Decker Urine Protein Urine Glucose (UA) Urine Ketones Urine Blood Urine RBC (Auto) 01/07/20 01/07/20 01/08/20 22:24 22:24 03:43 Creatine Kinase Troponin I 0.067 0.062 NT-Pro-B Natriuret Pep 58965 H 01/08/20 08:45 Creatine Kinase 202 H Troponin I NT-Pro-B Natriuret Pep Impressions: Chest X-Ray 01/07/20 21:31 IMPRESSION: Cardiomegaly. Right lung base consolidation. Central line position as above.. Foot X-Ray 01/07/20 22:32 IMPRESSION: Collapse and fusion of the first MTP joint. There is an associated plantar soft tissue ulcer with air in the soft tissues. No obvious evidence of osteomyelitis. If there is a high clinical concern for osteochondral then MRI is recommended for further assessment. Assessment & Plan - Diagnosis (1) Diabetic infection of right foot Is this a current diagnosis for this admission?: Yes Plan: I have reviewed the plain x-rays with our radiologist today and there is some cortical bone loss of the right great toe metatarsal head and the exam in combination with the x-ray and her clinical picture is highly suspicious for osteomyelitis. Patient would highly benefit from a right great toe amputation along with the metatarsal head. However it would be unlikely for this wound to heal with her significant peripheral vascular disease. She may very well end up needing a right below the knee amputation. But the initial surgery should be the great toe transmetatarsal amputation and debridement. She does have significant comorbidities including a markedly diminished ejection fraction and she may benefit from transfer to a tertiary care center in light of these significant comorbidities. Furthermore she may require vascular surgery intervention which we do not have at our hospital. I will defer to our fire engine operator about either transferring the patient or continue to try to take care of her here. If he decides to attempt care at our facility, will plan initial surgical debridement under digital block here. (2) Elevated liver function studies Is this a current diagnosis for this admission?: Yes Plan: Patient does have some diffuse abdominal tenderness although she denies any pain. Her abnormal liver function studies may be due to shock liver but will obtain imaging studies to further evaluate.
[2020-01-08] MEDS: METRONIDAZOLE 500 MG/NS RTU 500 MG/100 ML RTUPB IV SCH ×2 (11:42→16:40)
[2020-01-08] MEDS ORDERED: VANCOMYCIN HCL 750 MG in DEXTROSE 5%-WATER 250 ML IV SCH (12:00)
--- NOTE | 2020-01-08 15:56 | RADIOLOGY REPORT (SQ) ---
EXAM DESCRIPTION: CT ABD/PELVIS ORAL ONLY COMPLETED DATE/TIME: 01/08/2020 3:33 pm REASON FOR STUDY: pain COMPARISON: None. TECHNIQUE: CT scan of the abdomen and pelvis performed with oral contrast and no intravenous contras t. Images reviewed with lung, soft tissue, and bone windows. Reconstructed coronal and sagittal MPR i mages reviewed. All images stored on PACS. All CT scanners at this facility use dose modulation, iterative reconstruction, and/or weight based d osing when appropriate to reduce radiation dose to as low as reasonably achievable (ALARA). [facility]: Dose Right [facility]: CareDose [facility]: Dose Right [facility]: Teradose 4D [facility]: [employer] RADIATION DOSE: CT Rad equipment meets quality standard of care and radiation dose reduction techniq ues were employed. CTDIvol: 22.5 mGy. DLP: 1246 mGy-cm. mGy. LIMITATIONS: None. FINDINGS: LOWER CHEST: Cardiomegaly. Small right pleural effusion. NON-CONTRASTED LIVER, SPLEEN, ADRENALS: Evaluation limited by lack of IV contrast. No identified sign ificant masses. PANCREAS: No masses. No peripancreatic inflammatory changes. GALLBLADDER: No identified stones by CT criteria. No inflammatory changes to suggest cholecystitis. RIGHT KIDNEY AND URETER: No suspicious masses. Assessment limited by lack of IV contrast. No signif icant calcifications. No hydronephrosis or hydroureter. LEFT KIDNEY AND URETER: No suspicious masses. Assessment limited by lack of IV contrast. No signifi cant calcifications. No hydronephrosis or hydroureter. AORTA AND RETROPERITONEUM: No aneurysm. No retroperitoneal masses or adenopathy. BOWEL AND PERITONEAL CAVITY: Diverticulosis sigmoid colon. No obvious masses or inflammatory changes . No free fluid. APPENDIX: Not visualized. PELVIS, BLADDER, AND ABDOMINAL WALL: Moderate free fluid. Rivera catheter in urinary bladder. Body w all edema. BONES: No significant findings. OTHER: No other significant finding. IMPRESSION: 1. No evidence of bowel obstruction or abscess. Sigmoid diverticulosis. 2. Body wall edema. 3. Cardiomegaly. Small right pleural effusion. TECHNICAL DOCUMENTATION: JOB ID: [id number] Quality ID # [id number]: Final reports with documentation of one or more dose reduction techniques (e.g., Au tomated exposure control, adjustment of the mA and/or kV according to patient size, use of iterative reconstruction technique) 2010 [employer]- All Rights Reserved Reading location - IP/workstation name: [email or web address]
--- NOTE | 2020-01-08 15:59 | RADIOLOGY REPORT (SQ) ---
EXAM DESCRIPTION: CT RT LOWER EXTREMITY WITHOUT COMPLETED DATE/TIME: 01/08/2020 3:33 pm REASON FOR STUDY: myonecrosis COMPARISON: None. TECHNIQUE: Axial imaging performed through the Right lower extremity with reformatted coronal and sagittal imaging windowed for bone and soft tissues. Images saved to PAC S. 3D IMAGING: Were 3D images as MIP, SSD, or volume rendering performed at the work station? No LIMITATIONS: None. FINDINGS: SOFT TISSUES: Diffuse subcutaneous edema. No gas in the soft tissues. No abscess. BONY STRUCTURES: No fracture or aggressive bone lesion. No periosteal reaction. MINERALIZATION: Normal. OTHER: No other significant finding. IMPRESSION: Cellulitis. No evidence of osteomyelitis. Reading location - IP/workstation name: [facility]CLUDES THE [facility]
--- NOTE | 2020-01-08 16:10 | XCELERA REPORT ---
[address] [address] Transthoracic Echocardiogram Report Name: JOSH TOLBERT Age: 64 yrs Gender: Female : 1955 Patient Status: Inpatient Patient Location: ICU^[id number]^A Study Date: 01/08/2020 10:10 AM Height: 67 in Weight: 227 lb BSA: 2.1 m2 Procedure: A two-dimensional transthoracic echocardiogram with color flow and Doppler was performed. The study was technically difficult with many images being suboptimal in quality. The study was technically limited with all images being suboptimal in quality. Reason For Study: Heart failure History: Heart failure. Ordering Physician: KARIS ZHOU Performed By: Onesimo Pradhan Interpretation Summary A two-dimensional transthoracic echocardiogram with color flow and Doppler was performed. The study was technically difficult with many images being suboptimal in quality. The left ventricle is moderately dilated. There is normal left ventricular wall thickness. LV EF is Less than 20% Left ventricular systolic function is severely reduced. THe anteroseptal wall is akinetic.The Apical septum,apical lateral , the apical inferior , and the apical anterior acosta are all akinetic.Rest of the LV acosta are severely hyokinetic. There is no thrombus. Cannot assess ASD,VSD or PFO. The right ventricle is moderately dilated. The right ventricle is not well visualized secondary to technical limitations The right atrium is moderately dilated. The left atrium is moderately dilated. There is no evidence of mitral valve prolapse. There is no vegetation seen on the mitral valve. There is no mitral valve stenosis. There is a trace to mild amount of mitral regurgitation There is mild to moderate mitral annular calcification. There is no aortic valvular vegetation. There is no aortic valve stenosis There is no LVOT obstruction. No aortic regurgitation is present. There is no tricuspid stenosis. There is a trace amount of tricuspid regurgitation Tricuspid regurgitation jet envelope not well defined to measure RV systolic pressure accurately. The aortic root is normal size. The inferior vena cava appeared dilated and decreased < 50% with respiration (RAP 15-20 mmHg) There is no pericardial effusion. MMode/2D Measurements & Calculations RVDd: 3.1 cm LVIDd: 5.1 cm FS: 8.9 % Ao root diam: 2.8 cm IVSd: 1.1 cm LVIDs: 4.6 cm EDV(Teich): 122.9 ml Ao root area: 6.2 cm2 LVPWd: 1.1 cm ESV(Teich): 99.0 ml LA dimension: 4.4 cm EF(Teich): 19.5 % Left Ventricle The left ventricle is moderately dilated. There is normal left ventricular wall thickness. LV EF is Less than 20%. Left ventricular systolic function is severely reduced. LV diastolic function not assessed. THe anteroseptal wall is akinetic.The Apical septum,apical lateral , the apical inferior , and the apical anterior acosta are all akinetic.Rest of the LV acosta are severely hyokinetic. There is no thrombus. Cannot assess ASD,VSD or PFO. Right Ventricle The right ventricle is moderately dilated. The right ventricle is not well visualized secondary to technical limitations. Atria The right atrium is moderately dilated. The left atrium is moderately dilated. Mitral Valve There is mild to moderate mitral annular calcification. There is no evidence of mitral valve prolapse. There is no vegetation seen on the mitral valve. There is no mitral valve stenosis. There is a trace to mild amount of mitral regurgitation. Aortic Valve There is no aortic valvular vegetation. There is no aortic valve stenosis. There is no LVOT obstruction. No aortic regurgitation is present. Tricuspid Valve There is no tricuspid stenosis. There is a trace amount of tricuspid regurgitation. Tricuspid regurgitation jet envelope not well defined to measure RV systolic pressure accurately. Pulmonic Valve The pulmonic valve is not well visualized. Great Vessels The aortic root is normal size. The inferior vena cava appeared dilated and decreased < 50% with respiration (RAP 15-20 mmHg). Effusions There is no pericardial effusion. : KARIS ZHOU Lakshmi
--- NOTE | 2020-01-08 16:41 | PDOC CRITICAL CARE PROG REPORT ---
General Date:: 01/08/20 ICU Day:: 2 Ventilator Day:: 0 Hospital Day:: 2 Medical Power of Director Of Recruitment And Admissions: Nu Edwards Events in the past 12 to 24 Hours:: Admitted overnight with hypotension, lactic acidosis and ischemia to both feet. Her blood pressure has now improved but she is in atrial fibrillation which is been variably controlled. She underwent an echocardiogram which shows a reduced ejection fraction which is hovering about 15 to 20%. That is unofficial wet reading. Her mixed venous gas from a central line shows a venous oxygen saturation of 63%. She is no longer hypotensive. Received notification of gram-positive's in the bloodstream Review of systems relevant to events:: Patient's lactic acidosis has improved. She is no longer hypotensive. Reviewed extensive records from [facility]. Please see written chart for details Notable points is that patient has history of atrial fibrillation. She has a deep venous thrombosis of the right arm in November 2019. Placed on Eliquis for this. So has a left ventricular thrombus. She has history of old CVA. She also was listed as a DNR DNI and she has re-declared this here He had a repeat echocardiogram done November 2019 which showed a reduced ejection fraction to 30 to 35% with moderate size apical thrombus mild to moderate mitral regurg and an atrium which is dilated. She had mild tricuspid regurg trace aortic insufficiency but no aortic stenosis that was significant. She was seen by cardiology in the past and deemed not a candidate for invasive therapy Reason for ICU Addmission:: Hypotension, Severe Sepsis, Heart Failure, A-fib RVR - Medications: Medications reviewed and adjusted accordingly: Yes Vasopressors:: None Sedation:: None Physical Exam Vital Signs: Temp Pulse Resp BP Pulse Ox 98.1 F 129 H 21 H 100/74 100 01/08/20 12:00 01/08/20 14:00 01/08/20 14:00 01/08/20 14:00 01/08/20 14:00 Intake & Output 01/07/20 01/08/20 01/09/20 06:59 06:59 06:59 Intake Total 1513 Output Total 280 275 Balance 1233 -275 Weight 103.1 kg Weight/Height Weight 103.1 kg Height 5 ft 7 in General appearance: PRESENT: no acute distress, cooperative, disheveled, obese Head exam: PRESENT: atraumatic, normocephalic Eye exam: PRESENT: conjunctiva pink, EOMI, PERRLA. ABSENT: conjunctival injection, nystagmus, scleral icterus Mouth exam: PRESENT: neck supple Teeth exam: PRESENT: edentulous Neck exam: PRESENT: other - CVC in right subclavian clean, non-erythematous. ABSENT: carotid bruit, JVD, lymphadenopathy, thyromegaly Respiratory exam: PRESENT: clear to auscultation gunjan. ABSENT: accessory muscle use, rales, rhonchi, wheezes Cardiovascular exam: PRESENT: irregular rhythm, tachycardia, other - Critical Care bedside echocardiogram( basic). Markedly reduced EF at 20% Vascular exam: PRESENT: pallor. ABSENT: normal capillary refill GI/Abdominal exam: PRESENT: normal bowel sounds, soft. ABSENT: ascites, distended, guarding, mass, organolmegaly, rebound, tenderness Rectal exam: PRESENT: deferred Gentrourinary exam: PRESENT: indwelling catheter Neurological exam: PRESENT: alert, awake, oriented to person, oriented to place, oriented to time, oriented to situation, CN II-XII grossly intact, motor sensory deficit - Decrease sensation to lower digits. Sensory positive level at mid- feet. Intact motor. Psychiatric exam: PRESENT: appropriate affect, normal mood Skin exam: PRESENT: cyanosis, erythema, mottled, pallor, vesicles, other - Right foot: Demarcation of toes 2 mid tarsal region. Non-coalesced purpuric cyanosis medial aspect with blistering. Erythema is noted with tenderness. Foot has less cyanotic demarcation.. ABSENT: intact, normal color Laboratory/Radiographs Laboratory Results: 01/08/20 08:45 01/08/20 08:45 01/07/20 01/07/20 01/07/20 22:15 22:24 22:24 WBC Cancelled RBC Cancelled Hgb Cancelled Hct Cancelled MCV Cancelled MCH Cancelled MCHC Cancelled RDW Cancelled Plt Count Cancelled Seg Neutrophils % Cancelled Carbonic Acid HCO3/H2CO3 Ratio ABG pH ABG pCO2 ABG pO2 ABG HCO3 ABG O2 Saturation ABG Base Excess VBG pH VBG pCO2 VBG HCO3 VBG Base Excess FiO2 Sodium 131.2 L Potassium 5.2 H Chloride 93 L Carbon Dioxide 18 L Anion Gap 20 H BUN 45 H Creatinine 1.23 Est GFR ( Amer) 53 L Glucose 189 H Lactic Acid 8.2 H Calcium 9.0 Phosphorus Magnesium Total Bilirubin 3.9 H AST 664 H Alkaline Phosphatase 160 H Total Protein 5.9 L Albumin 3.1 L Urine Color Urine Appearance Urine pH Ur Specific Powell Urine Protein Urine Glucose (UA) Urine Ketones Urine Blood Urine RBC (Auto) 01/07/20 01/07/20 01/07/20 22:24 22:24 22:24 WBC RBC Hgb Hct MCV MCH MCHC RDW Plt Count Seg Neutrophils % Carbonic Acid HCO3/H2CO3 Ratio ABG pH ABG pCO2 ABG pO2 ABG HCO3 ABG O2 Saturation ABG Base Excess VBG pH 7.30 VBG pCO2 38.7 VBG HCO3 18.7 L VBG Base Excess -7.0 FiO2 Sodium Potassium Chloride Carbon Dioxide Anion Gap BUN Creatinine Est GFR ( Amer) Glucose Lactic Acid Calcium Phosphorus 4.4 Magnesium 1.9 Total Bilirubin AST Alkaline Phosphatase Total Protein Albumin Urine Color YELLOW Urine Appearance SLIGHTLY-CLOUDY Urine pH 5.0 Ur Specific Powell 1.019 Urine Protein 30 H Urine Glucose (UA) NEGATIVE Urine Ketones NEGATIVE Urine Blood NEGATIVE Urine RBC (Auto) 1 01/07/20 01/07/20 01/08/20 23:55 23:55 01:52 WBC 23.1 H RBC 4.49 Hgb 11.3 L Hct 36.8 MCV 82 MCH 25.2 L MCHC 30.7 L RDW 20.4 H Plt Count 215 Seg Neutrophils % Not Reportable Carbonic Acid 1.16 HCO3/H2CO3 Ratio 16:1 ABG pH 7.32 L ABG pCO2 38.7 ABG pO2 35.0 L* ABG HCO3 19.5 L ABG O2 Saturation 62.7 L ABG Base Excess -6.1 VBG pH VBG pCO2 VBG HCO3 VBG Base Excess FiO2 4L Sodium Potassium Chloride Carbon Dioxide Anion Gap BUN Creatinine Est GFR ( Amer) Glucose Lactic Acid 4.8 H Calcium Phosphorus Magnesium Total Bilirubin AST Alkaline Phosphatase Total Protein Albumin Urine Color Urine Appearance Urine pH Ur Specific Powell Urine Protein Urine Glucose (UA) Urine Ketones Urine Blood Urine RBC (Auto) 01/08/20 01/08/20 01/08/20 04:33 08:45 08:45 WBC 24.3 H RBC 4.11 Hgb 10.3 L Hct 33.4 L MCV 81 MCH 25.1 L MCHC 30.9 L RDW 19.4 H Plt Count 173 Seg Neutrophils % Not Reportable Carbonic Acid HCO3/H2CO3 Ratio ABG pH ABG pCO2 ABG pO2 ABG HCO3 ABG O2 Saturation ABG Base Excess VBG pH VBG pCO2 VBG HCO3 VBG Base Excess FiO2 Sodium 131.7 L Potassium 4.5 Chloride 97 L Carbon Dioxide 27 Anion Gap 8 BUN 47 H Creatinine 1.21 Est GFR ( Amer) 54 L Glucose 158 H Lactic Acid 3.0 H Calcium 8.4 Phosphorus 3.6 Magnesium 1.8 Total Bilirubin 3.7 H AST 463 H Alkaline Phosphatase 127 H Total Protein 5.0 L Albumin 2.3 L Urine Color Urine Appearance Urine pH Ur Specific Powell Urine Protein Urine Glucose (UA) Urine Ketones Urine Blood Urine RBC (Auto) 01/08/20 08:45 WBC RBC Hgb Hct MCV MCH MCHC RDW Plt Count Seg Neutrophils % Carbonic Acid HCO3/H2CO3 Ratio ABG pH ABG pCO2 ABG pO2 ABG HCO3 ABG O2 Saturation ABG Base Excess VBG pH VBG pCO2 VBG HCO3 VBG Base Excess FiO2 Sodium Potassium Chloride Carbon Dioxide Anion Gap BUN Creatinine Est GFR ( Amer) Glucose Lactic Acid 2.2 H Calcium Phosphorus Magnesium Total Bilirubin AST Alkaline Phosphatase Total Protein Albumin Urine Color Urine Appearance Urine pH Ur Specific Powell Urine Protein Urine Glucose (UA) Urine Ketones Urine Blood Urine RBC (Auto) 01/07/20 01/07/20 01/08/20 22:24 22:24 03:43 Creatine Kinase Troponin I 0.067 0.062 NT-Pro-B Natriuret Pep 93817 H 01/08/20 08:45 Creatine Kinase 202 H Troponin I NT-Pro-B Natriuret Pep Impressions: Chest X-Ray 01/07/20 21:31 IMPRESSION: Cardiomegaly. Right lung base consolidation. Central line position as above.. Foot X-Ray 01/07/20 22:32 IMPRESSION: Collapse and fusion of the first MTP joint. There is an associated plantar soft tissue ulcer with air in the soft tissues. No obvious evidence of osteomyelitis. If there is a high clinical concern for osteochondral then MRI is recommended for further assessment. Assessment and Plan - Diagnosis (1) Severe sepsis with acute organ dysfunction Is this a current diagnosis for this admission?: Yes (2) Sepsis with encephalopathy and septic shock Qualifiers: Sepsis type: sepsis due to unspecified organism Qualified Code(s): A41.9 - Sepsis, unspecified organism; R65.21 - Severe sepsis with septic shock; G93.40 - Encephalopathy, unspecified Is this a current diagnosis for this admission?: Yes Plan: Gram positive bacteremia. Metabolic encephalopathy (3) Persistent atrial fibrillation with rapid ventricular response Is this a current diagnosis for this admission?: Yes (4) Gram positive bacterial infection Is this a current diagnosis for this admission?: Yes (5) Critical ischemia of lower extremity Is this a current diagnosis for this admission?: Yes (6) Ischemia of right lower extremity Is this a current diagnosis for this admission?: Yes (7) Ischemic dilated cardiomyopathy Is this a current diagnosis for this admission?: Yes (8) Ischemic heart disease or syndrome, chronic Is this a current diagnosis for this admission?: Yes (9) Ischemia of both lower extremities Is this a current diagnosis for this admission?: Yes (10) DNR (do not resuscitate) discussion Is this a current diagnosis for this admission?: Yes (11) TERESSA (acute kidney injury) Is this a current diagnosis for this admission?: Yes (12) Diabetic infection of right foot Is this a current diagnosis for this admission?: Yes (13) HFrEF (heart failure with reduced ejection fraction) Qualifiers: Heart failure chronicity: acute on chronic Qualified Code(s): I50.23 - Acute on chronic systolic (congestive) heart failure Is this a current diagnosis for this admission?: Yes Plan: Bi-ventricular, systolic, dilated (14) Ischemic ulcer diabetic foot Is this a current diagnosis for this admission?: Yes (15) Lactic acid acidosis Is this a current diagnosis for this admission?: Yes (16) Chronic atrial fibrillation with rapid ventricular response Is this a current diagnosis for this admission?: Yes (17) DNR (do not resuscitate) Is this a current diagnosis for this admission?: Yes Plan Summary: Patient has extensive and complex disease. Difficult amount of time is been spent in discussion with our local surgeon and anesthesia. They are reticent to consider taking the patient to the operating room given her extensive cardiomyopathy and severe peripheral vascular disease. She is at risk, most certainly however is not a candidate for cardiovascular intervention at this time. Been asked by the surgeon and the anesthesia team to consider transfer to [facility] with the patient is known and can be seen for subspecialty support. As far as her sepsis is concerned she has improved. She is not on vasopressor support and she is no longer hypotensive. Her only reason for being in the ICU at this time is for the complex nature of the ischemia of her foot requiring hourly care and follow-up and her atrial fibrillation with rapid ventricular response which is variable. I have started an amiodarone drip realizing the risk of amiodarone lung toxicity in the face of vascular surgery. Steroids may prevent this from occurring and will need to be considered. Patient's lactic acidosis has improved and part of this elevation is related to the concurrent use of metformin. She had a mild degree of acidosis which is not severe. Baseline creatinine is about 0.6 and an elevation to 1.2 is regional sales representative of a cute kidney injury. This has not worsened. A judicious balance of fluids has been of paramount importance. Have placed her on broad-spectrum antibiotics to include anaerobic and antifungal coverage. Although not the first-line choice I have chose micafungin to prevent any interaction with amiodarone. Patient did receive digoxin on presentation because of her hypotension and atrial fibrillation. Given the concern for the left atrial clot we have elected to transition to amiodarone. Vigilance for monitoring will be paramount. I have placed a call to [facility]. Spoke with ICU team and am awaiting acceptance. In the meantime, several events and situations need to be discussed. The CT scan of the lower extremity reveals cellulitis without evidence of osteomyelitis or gas-forming phenomena CT of the abdomen shows no significant issues other than known atherosclerotic disease. The venous Doppler study is still pending The echocardiogram shows an ejection fraction reduced to 20% consistent with our findings. Of note the anterior septal wall is akinetic the apical septal apical lateral apical inferior and apical anterior acosta are all akinetic the rest are severely hypokinetic. They do not see a thrombus. The right ventricle is moderately dilated both the right and left atrium are moderately dilated agitations are seen there is only trace to moderate mitral annular calcification no significant regurgitation in any valve. The inferior vena cava was dilated and had no specific respirophasic changes. Right atrial pressure is estimated at 15-20 mmHg. There were no pericardial effusions Her INR is 3 which is indicative of NOAC therapy. Although regional sales representative of anticoagulation there is not a linear correlation. Need to follow her INR in preparation for surgery. Unfortunately we do not have a roto-tag scan ability to determine degree of anticoagulation. Should she require emergent INR treatment, will need [facility]. I have asked our business ethics professor who evaluates this patient to offer opinion as well. Vigilance for decline is necessary and we will maintain her in the ICU because of the atrial fibrillation and its rate and concern for rapid decompensation in this patient. I am somewhat cured that her heart function is somewhat chronic given the oxygen saturation on the venous side of approximately 65%. Continue to provide supportive care for both continued care here if she goes to the operating room and in preparation for possible transfer. Critical Time Critical Time (minutes): 90 Level of Care: ICU Anticipated discharge: [facility] Within: when bed available -: 1. The care of a critical patient is a dynamic process. This note is a regional sales representative synopsis but static in nature. The timeframe for treatments given in order is not necessarily the actual time these treatments may have been done. 2. This patient requires critical care secondary to ongoing requirements for therapy not offered or safe outside the critical care environment. Transfer to a lower level of care will result in altered life or limb morbidity and mortality. 3. Multidisciplinary rounds completed. 4. ABCDE bundle addressed.
--- NOTE | 2020-01-08 16:51 | PDOC TRANSFER SUMMARY ---
General Admission Date/PCP: 01/07/20 22:55 NICOLASA GREEN MD Admission Date: 01/07/20 Transfer Date: 01/08/20 Accepting Facility: [facility] Resuscitation Status: Do Not Resuscitate - Transfer Diagnosis (1) Severe sepsis with acute organ dysfunction Is this a current diagnosis for this admission?: Yes (2) Sepsis with encephalopathy and septic shock Is this a current diagnosis for this admission?: Yes (3) Persistent atrial fibrillation with rapid ventricular response Is this a current diagnosis for this admission?: Yes (4) Gram positive bacterial infection Is this a current diagnosis for this admission?: Yes (5) Critical ischemia of lower extremity Is this a current diagnosis for this admission?: Yes (6) Ischemia of right lower extremity Is this a current diagnosis for this admission?: Yes (7) Ischemic dilated cardiomyopathy Is this a current diagnosis for this admission?: Yes (8) Ischemic heart disease or syndrome, chronic Is this a current diagnosis for this admission?: Yes (9) Ischemia of both lower extremities Is this a current diagnosis for this admission?: Yes (10) DNR (do not resuscitate) discussion Is this a current diagnosis for this admission?: Yes (11) TERESSA (acute kidney injury) Is this a current diagnosis for this admission?: Yes (12) Diabetic infection of right foot Is this a current diagnosis for this admission?: Yes (13) HFrEF (heart failure with reduced ejection fraction) Is this a current diagnosis for this admission?: Yes (14) Ischemic ulcer diabetic foot Is this a current diagnosis for this admission?: Yes (15) Lactic acid acidosis Is this a current diagnosis for this admission?: Yes (16) Chronic atrial fibrillation with rapid ventricular response Is this a current diagnosis for this admission?: Yes (17) DNR (do not resuscitate) Is this a current diagnosis for this admission?: Yes - Transfer Medications Home Medications: Apixaban [Eliquis 5 mg Tablet] 5 mg PO BID 01/08/20 Atorvastatin Calcium [Lipitor 40 mg Tablet] 40 mg PO QHS 01/08/20 Duloxetine HCl [Cymbalta] 60 mg PO DAILY 01/08/20 Fluticasone Propionate [Flonase Nasal [place] 50 Mcg/[place] 16 gm] 1 spray NASL DAILY 01/08/20 Ibuprofen [Motrin 800 mg Tablet] 800 mg PO BID 01/08/20 Levothyroxine Sodium [Synthroid 0.088 mg Tablet] 0.088 mg PO Q6AM 01/08/20 Lisinopril [Zestril] 2.5 mg PO DAILY 01/08/20 Metformin HCl [Glucophage 500 mg Tablet] 1,000 mg PO BID 01/08/20 Metoprolol Tartrate [Lopressor 25 mg Tablet] 25 mg PO Q12 01/08/20 Oxycodone HCl/Acetaminophen [Percocet 5-325 mg Tablet] 1 tab PO Q6HP PRN 01/08/20 Transfer Medications: Current Medications Dextrose (Dextrose Inj 50% Syringe (25 Gm/50 Ml)) 12.5 gm IV PRN PRN; Protocol PRN Reason: FOR BG 50-69 IN ALERT PATIENT Stop: 02/07/20 00:08 Dextrose (Dextrose Inj 50% Syringe (25 Gm/50 Ml)) 25 gm IV PRN PRN; Protocol PRN Reason: See Label Comments Stop: 02/07/20 00:08 Duloxetine HCl (Cymbalta 30 Mg Capsule.Dr) 60 mg PO DAILY [facility] Stop: 02/08/20 09:59 Glucagon (Glucagen Inj 1 Mg Vial) 1 mg SUBCUT PRN PRN; Protocol PRN Reason: Evaluate for BG < 70 Stop: 02/07/20 00:08 Glucose (Glutose 40% Gel 15 Gm Tube) 15 gm PO PRN PRN; Protocol PRN Reason: For BG 50-69 in Alert Patient Stop: 02/07/20 00:08 Glucose (Glutose 40% Gel 15 Gm Tube) 30 gm PO PRN PRN; Protocol PRN Reason: FOR BG < 50 IN ALERT PATIENT Stop: 02/07/20 00:08 Metronidazole (Flagyl Rtu 500 Mg/Ns 100ml Premix) 500 mg in 100 mls @ 100 mls/hr IV Q6A [facility] Stop: 01/15/20 08:59 Last Admin: 01/08/20 11:42 Dose: 100 mls/hr, 100 mls/hr Documented by: Cefepime HCl 2 gm/ Dextrose 50 mls @ 100 mls/hr IV Q12 [facility] Stop: 01/15/20 09:59 Last Admin: 01/08/20 11:41 Dose: 100 mls/hr, 100 mls/hr Documented by: Vancomycin HCl 750 mg/ (Dextrose) 250 mls @ 166.667 mls/hr IV Q12@0000,1200 [facility] Stop: 01/15/20 11:59 Last Admin: 01/08/20 12:12 Dose: 166.67 mls/hr, 166.67 mls/hr Documented by: Amiodarone HCl 150 mg/ (Dextrose) 100 mls @ 600 mls/hr IV NOW ONE; Protocol Stop: 01/08/20 17:09 Amiodarone HCl 900 mg/ (Dextrose) 500 mls @ 0 mls/hr IV CONTINUOUS PRN; Protocol PRN Reason: THIS MED IS NOT "PRN" Stop: 01/11/20 16:59 Micafungin Sodium 100 mg/ (Sodium Chloride) 100 mls @ 100 mls/hr IV DAILY [facility] Stop: 01/15/20 16:59 Insulin Human Regular (Humulin R (Pyxis) Insulin 100 Unit/Ml 3ml) 0 - 12 unit SUBCUT Q6 [facility]; Protocol Stop: 02/07/20 00:00 Last Admin: 01/08/20 12:09 Dose: 2 unit Documented by: Levothyroxine Sodium (Synthroid 0.088 Mg Tablet) 0.088 mg PO Q6AM [facility] Stop: 02/07/20 08:59 Last Admin: 01/08/20 11:41 Dose: 0.088 mg Documented by: Sodium Chloride (Saline Flush 2.5 Ml Monoject Prefil Syrin) 2.5 ml IV Q8 [facility] Stop: 02/07/20 05:59 Last Admin: 01/08/20 13:26 Dose: Not Given Documented by: - Allergies Allergies/Adverse Reactions: Iodinated Contrast Media Allergy (Unknown, Verified 01/08/20 10:30) pseudoephedrine [Pseudoephedrine] Allergy (Verified 12/12/19 16:50) Hospital Course Hospital Course: 64-year-old white female with extensive comorbid disease including cardiomyopathy peripheral vascular disease and longstanding chronic ischemia of her lower extremities presented noted from the HPI: "Deepa Diaz is a 64-year-old female with a past medical history significant for HTN, CHF, A-fib (for which she was reportedly taken off anticoagulation 3 yrs ago because she was in NSR-though back in AF last month), recently diagnosed right axillary DVT placed on Eliquis, DM II with Hgb A1c 7.7 last month), and chronic diabetic foot ulcers to the right great toe as well as plantar surface of her foot who presented to [facility] with a complaint of generalized weakness resulting in a fall at home, unable to get up without assistance. Mrs Diaz was found to have hypotension and atrial fibrillation with RVR, HR 170s. Mrs Diaz was receiving sepsis bolus of 30 ml/kg when I evaluated her in ED, discovering she has significantly reduced LVEF on POCUS performed by myself, therefore the remainder of the fluid was held following the one liter she had already received. She denies CP, SOB, upper respiratory symptoms, GIB, changes in bowel habits, and urinary symptoms. However, does admit she thinks she has been told she has heart failure in the past. Mrs. Diaz was transferred to [facility] last month for interventional vascular vs vascular surgery consultation for which we will attempt to obtain medical records later today. Will admit patient to ICU for heart failure and A-fib RVR, though there is likely a severe sepsis component as well." She was noted to be on metformin but had significant ischemia of the right lower extremity with atrial fibrillation. Admitted to the ICU after a small fluid bolus given the poor ejection fraction noted on focused critical care echo. As noted in today's progress note she was seen by multiple consultants and deemed high risk for any surgeries. Patient was in agreement to have surgery if it meant saving life over limb. Discussion was carried out with [facility] in [place] who has known the patient in the past. Has been accepted and will be transferred. Physical Exam Vital Signs: Temp Pulse Resp BP Pulse Ox 98.1 F 129 H 21 H 100/74 100 01/08/20 12:00 01/08/20 14:00 01/08/20 14:00 01/08/20 14:00 01/08/20 14:00 Intake & Output 01/07/20 01/08/20 01/09/20 06:59 06:59 06:59 Intake Total 1513 Output Total 280 275 Balance 1233 -275 Weight 103.1 kg Exam: see today's progress note Results Laboratory Results: 01/08/20 08:45 01/08/20 08:45 01/07/20 01/07/20 01/07/20 22:15 22:24 22:24 WBC Cancelled RBC Cancelled Hgb Cancelled Hct Cancelled MCV Cancelled MCH Cancelled MCHC Cancelled RDW Cancelled Plt Count Cancelled Seg Neutrophils % Cancelled Carbonic Acid HCO3/H2CO3 Ratio ABG pH ABG pCO2 ABG pO2 ABG HCO3 ABG O2 Saturation ABG Base Excess VBG pH VBG pCO2 VBG HCO3 VBG Base Excess FiO2 Sodium 131.2 L Potassium 5.2 H Chloride 93 L Carbon Dioxide 18 L Anion Gap 20 H BUN 45 H Creatinine 1.23 Est GFR ( Amer) 53 L Glucose 189 H Lactic Acid 8.2 H Calcium 9.0 Phosphorus Magnesium Total Bilirubin 3.9 H AST 664 H Alkaline Phosphatase 160 H Total Protein 5.9 L Albumin 3.1 L Urine Color Urine Appearance Urine pH Ur Specific [place] Urine Protein Urine Glucose (UA) Urine Ketones Urine Blood Urine RBC (Auto) 01/07/20 01/07/20 01/07/20 22:24 22:24 22:24 WBC RBC Hgb Hct MCV MCH MCHC RDW Plt Count Seg Neutrophils % Carbonic Acid HCO3/H2CO3 Ratio ABG pH ABG pCO2 ABG pO2 ABG HCO3 ABG O2 Saturation ABG Base Excess VBG pH 7.30 VBG pCO2 38.7 VBG HCO3 18.7 L VBG Base Excess -7.0 FiO2 Sodium Potassium Chloride Carbon Dioxide Anion Gap BUN Creatinine Est GFR ( Amer) Glucose Lactic Acid Calcium Phosphorus 4.4 Magnesium 1.9 Total Bilirubin AST Alkaline Phosphatase Total Protein Albumin Urine Color YELLOW Urine Appearance SLIGHTLY-CLOUDY Urine pH 5.0 Ur Specific [place] 1.019 Urine Protein 30 H Urine Glucose (UA) NEGATIVE Urine Ketones NEGATIVE Urine Blood NEGATIVE Urine RBC (Auto) 1 01/07/20 01/07/20 01/08/20 23:55 23:55 01:52 WBC 23.1 H RBC 4.49 Hgb 11.3 L Hct 36.8 MCV 82 MCH 25.2 L MCHC 30.7 L RDW 20.4 H Plt Count 215 Seg Neutrophils % Not Reportable Carbonic Acid 1.16 HCO3/H2CO3 Ratio 16:1 ABG pH 7.32 L ABG pCO2 38.7 ABG pO2 35.0 L* ABG HCO3 19.5 L ABG O2 Saturation 62.7 L ABG Base Excess -6.1 VBG pH VBG pCO2 VBG HCO3 VBG Base Excess FiO2 4L Sodium Potassium Chloride Carbon Dioxide Anion Gap BUN Creatinine Est GFR ( Amer) Glucose Lactic Acid 4.8 H Calcium Phosphorus Magnesium Total Bilirubin AST Alkaline Phosphatase Total Protein Albumin Urine Color Urine Appearance Urine pH Ur Specific [place] Urine Protein Urine Glucose (UA) Urine Ketones Urine Blood Urine RBC (Auto) 01/08/20 01/08/20 01/08/20 04:33 08:45 08:45 WBC 24.3 H RBC 4.11 Hgb 10.3 L Hct 33.4 L MCV 81 MCH 25.1 L MCHC 30.9 L RDW 19.4 H Plt Count 173 Seg Neutrophils % Not Reportable Carbonic Acid HCO3/H2CO3 Ratio ABG pH ABG pCO2 ABG pO2 ABG HCO3 ABG O2 Saturation ABG Base Excess VBG pH VBG pCO2 VBG HCO3 VBG Base Excess FiO2 Sodium 131.7 L Potassium 4.5 Chloride 97 L Carbon Dioxide 27 Anion Gap 8 BUN 47 H Creatinine 1.21 Est GFR ( Amer) 54 L Glucose 158 H Lactic Acid 3.0 H Calcium 8.4 Phosphorus 3.6 Magnesium 1.8 Total Bilirubin 3.7 H AST 463 H Alkaline Phosphatase 127 H Total Protein 5.0 L Albumin 2.3 L Urine Color Urine Appearance Urine pH Ur Specific [place] Urine Protein Urine Glucose (UA) Urine Ketones Urine Blood Urine RBC (Auto) 01/08/20 01/08/20 08:45 14:56 WBC RBC Hgb Hct MCV MCH MCHC RDW Plt Count Seg Neutrophils % Carbonic Acid HCO3/H2CO3 Ratio ABG pH ABG pCO2 ABG pO2 ABG HCO3 ABG O2 Saturation ABG Base Excess VBG pH VBG pCO2 VBG HCO3 VBG Base Excess FiO2 Sodium Potassium Chloride Carbon Dioxide Anion Gap BUN Creatinine Est GFR ( Amer) Glucose Lactic Acid 2.2 H 1.9 Calcium Phosphorus Magnesium Total Bilirubin AST Alkaline Phosphatase Total Protein Albumin Urine Color Urine Appearance Urine pH Ur Specific [place] Urine Protein Urine Glucose (UA) Urine Ketones Urine Blood Urine RBC (Auto) 01/07/20 01/07/20 01/08/20 22:24 22:24 03:43 Creatine Kinase Troponin I 0.067 0.062 NT-Pro-B Natriuret Pep 51312 H 01/08/20 08:45 Creatine Kinase 202 H Troponin I NT-Pro-B Natriuret Pep Impressions: Chest X-Ray 01/07/20 21:31 IMPRESSION: Cardiomegaly. Right lung base consolidation. Central line position as above.. Foot X-Ray 01/07/20 22:32 IMPRESSION: Collapse and fusion of the first MTP joint. There is an associated plantar soft tissue ulcer with air in the soft tissues. No obvious evidence of osteomyelitis. If there is a high clinical concern for osteochondral then MRI is recommended for further assessment. Abdomen/Pelvis CT 01/08/20 00:00 IMPRESSION: 1. No evidence of bowel obstruction or abscess. Sigmoid diverticulosis. 2. Body wall edema. 3. Cardiomegaly. Small right pleural effusion. Lower Extremity CT 01/08/20 00:00 IMPRESSION: Cellulitis. No evidence of osteomyelitis. Plan Discharge Plan: Transferred to [facility] for further definitive care. Follow-up labs have been done here including lactic acid but are not resulted at the time of this dictation. Please call the ICU at [facility] for any questions. For direct questions please call my cell phone at [phone] Time Spent: Greater than 30 Minutes
[2020-01-08] MEDS ORDERED: DEXTROSE 5%-WATER 500 ML with AMIODARONE HCL 900 MG IV PRN ×2 (17:00)
[2020-01-08] MEDS ORDERED: AMIODARONE HCL 150 MG in DEXTROSE 5%-WATER 100 ML IV ONE (17:00)
[2020-01-08 17:21] LABS: ALBUMIN 2.2 g/dL (3.5-5.0); ALKALINE PHOSPHATASE 121 U/L (38-126); ANION GAP 7 (5-19); ASPARTATE AMINO TRANSFERASE 306 U/L (14-36); BILIRUBIN,DIRECT 2.8 mg/dL (0.0-0.4); BILIRUBIN,TOTAL 4.2 mg/dL (0.2-1.3); BLOOD UREA NITROGEN 44 mg/dL (7-20); CALCIUM 8.1 mg/dL (8.4-10.2); CARBON DIOXIDE 27 mmol/L (22-30); CHLORIDE 98 mmol/L (98-107); CREATINE KINASE 220 U/L (30-135); GLUCOSE 144 mg/dL (75-110); POTASSIUM 4.3 mmol/L (3.6-5.0); TOTAL PROTEIN 4.6 g/dL (6.3-8.2)
[2020-01-08] MEDS ORDERED: MICAFUNGIN SODIUM 100 MG in NORMAL SALINE 100 ML IV SCH (20:00)
[2020-01-08 20:07] VITALS: BP 102/68
[2020-01-09] MEDS ORDERED: DULOXETINE HCL 30 MG CAPSULE.DR PO SCH (10:00)
[2020-01-09] MEDS ORDERED: DIGOXIN INJ 0.5 MG/2 ML AMPULE IV SCH (10:00)
--- NOTE | 2020-01-09 14:19 | XCELERA REPORT ---
[address] [id number] Lower Extremity Venous Evaluation Procedure: Normal vessel filling wall to wall, compression and augmentation as well as Colour flow down to the infrageniculate veins. Right Sided Venous Evaluation Normal vessel filling wall to wall, compression and augmentation as well as Colour flow down to the infrageniculate veins. Left Sided Venous Evaluation Normal vessel filling wall to wall, compression and augmentation as well as Colour flow down to the infrageniculate veins. Interpretation Summary No duplex evidence of DVT or obstruction in the bilateral lower extremities. Name: JOSH TOLBERT Age: 64 yrs Gender: Female : 1955 Patient Status: In[facility] Study [facility]: 01/08/2020 10:34 AM Reason For Study: R/O DVT Ordering Physician: BELINDA CONNELL Performed By: Onesimo Pradhan : BELINDA CONNELL > Leandro Marrero
== END 2020-01-08 20:10 | disposition short-term general hospital (02) | DRG 871 ==
LOC: ER 21:14 → EH 22:55 → ICU 01-08 01:45
PROVIDERS: ADMIT Internal Medicine Critical Care Medicine; ATTEND Internal Medicine Critical Care Medicine
DX: A41.9 Sepsis, unspecified organism (principal); R65.21 Severe sepsis with septic shock; G93.41 Metabolic encephalopathy; N17.9 Acute kidney failure, unspecified; I50.22 Chronic systolic (congestive) heart failure; I48.20 Chronic atrial fibrillation, unspecified; E11.621 Type 2 diabetes mellitus with foot ulcer; E11.51 Type 2 diabetes mellitus with diabetic peripheral angiopathy without gangrene; E11.42 Type 2 diabetes mellitus with diabetic polyneuropathy; L97.513 Non-pressure chronic ulcer of other part of right foot with necrosis of muscle; I25.5 Ischemic cardiomyopathy; E78.5 Hyperlipidemia, unspecified; E03.9 Hypothyroidism, unspecified; F32.9 Major depressive disorder, single episode, unspecified; F17.200 Nicotine dependence, unspecified, uncomplicated; Z66 Do not resuscitate; E66.01 Morbid (severe) obesity due to excess calories; I11.0 Hypertensive heart disease with heart failure; I34.0 Nonrheumatic mitral (valve) insufficiency; L97.529 Non-pressure chronic ulcer of other part of left foot with unspecified severity; L97.519 Non-pressure chronic ulcer of other part of right foot with unspecified severity; F90.9 Attention-deficit hyperactivity disorder, unspecified type; Z86.718 Personal history of other venous thrombosis and embolism; Z79.84 Long term (current) use of oral hypoglycemic drugs; Z83.3 Family history of diabetes mellitus; Z79.899 Other long term (current) drug therapy; Z91.041 Radiographic dye allergy status; Z88.8 Allergy status to other drugs, medicaments and biological substances; R94.5 Abnormal results of liver function studies; Z86.73 Personal history of transient ischemic attack (TIA), and cerebral infarction without residual deficits; Z79.01 Long term (current) use of anticoagulants
CPT/HCPCS: 36415; 71045; 74176; 80053; 81001; 82550; 82552; 82803; 82962; 83605; 83735; 83880; 84100; 84484; 85025; 85610; 87040; 87070; 87077; 87150; 93005; 93010; 93308; 93970; 96365; 99239; 99291; 99292; J0282; J0692; J1160; J1815; J2543; J3370; J3490; J7060; J7120